=== PATIENT | male | born 1940 | race Caucasian/White ===

== ENCOUNTER 2016-12-09 17:28 | Emergency (ER) | payer MEDICARE ==
[~2016-12-09] VITALS: Ht 180.3 cm; Wt 90.0 kg
[~2016-12-09 17:28] MED LIST: AMLO5 PO; ASPI81TA82 PO; GLYB2.5T3 PO; METO100T PO; PANT20 PO; URIB118C PO; VITA100020 SL
[2016-12-09 17:30] VITALS: BP 169/70; PULSE 66; RESP 16; TEMP 97.9; O2SAT 98
--- NOTE | 2016-12-10 13:59 | EKG ---
Date Performed: 12/09/2016 Time Performed: 17:52:26 PTAGE: 76 years EKG: Sinus rhythm RIGHT BUNDLE BRANCH BLOCK ABNORMAL ECG PREVIOUS TRACING : 04/09/2016 22.46 DOCTOR: Samson Rojo Interpretating Date/Time 12/10/2016 13:53:52
== END 2016-12-09 19:25 | disposition left against medical advice (07) ==
LOC: NED 17:28
DX: R94.31 Abnormal electrocardiogram [ECG] [EKG] (principal); R10.9 Unspecified abdominal pain
CPT/HCPCS: 93005; 99281

== ENCOUNTER 2017-08-05 13:22 | Inpatient (IN) | payer MEDICARE ==
[~2017-08-05] VITALS: Ht 177.8 cm; Wt 88.0 kg
[2017-08-05] VITALS (11 sets, daily range): BP systolic 143–198; BP diastolic 72–88; PULSE 53–66; RESP 16–18; TEMP 97.4–98.5; O2SAT 95–100
[2017-08-05] MEDS ORDERED: IODIXANOL 320 MG/ML 10 ML VIAL (for Rad CT) IVCONTRAST ONE (13:23)
[2017-08-05] MEDS ORDERED: SODIUM CHLORID 0.9% 500 ML INJ 500 ML IV ONE (13:45)
[2017-08-05 14:01] LABS: AUTOMATED NEUTROPHIL # 4.4 TH/MM3 (1.8-7.7); BASOPHIL # 0.1 TH/MM3 (0-0.2); BASOPHIL % 1.3 % (0.0-2.0); EOSINOPHIL # 0.3 TH/MM3 (0-0.4); EOSINOPHIL % 4.3 % (0.0-4.0); HEMATOCRIT 42.8 % (39.0-51.0); HEMO FLAGS DIFF FINAL; LYMPH % 20.3 % (9.0-44.0); LYMPHOCYTE # 1.4 TH/MM3 (1.0-4.8); MEAN CELL VOLUME 84.2 FL (80.0-100.0); MEAN CORPUSCULAR HEMOGLOBIN 27.9 PG (27.0-34.0); MEAN CORPUSCULAR HGB CONC 33.2 % (32.0-36.0); MONO % 12.4 % (0.0-8.0); NEUT % 61.7 % (16.0-70.0); PLATELET COUNT 226 TH/MM3 (150-450); RED BLOOD COUNT 5.08 MIL/MM3 (4.50-5.90); RED CELL DISTRIBUTION WIDTH 14.2 % (11.6-17.2); WHITE BLOOD COUNT 7.1 TH/MM3 (4.0-11.0)
--- NOTE | 2017-08-05 14:09 | RADRPT ---
EXAM DATE/TIME: 08/05/2017 13:55 [facility] COMPARISON: CHEST SINGLE AP, April 09, 2016, 10:59. INDICATIONS : Chest pain MEDICAL HISTORY : Cardiovascular disease. SURGICAL HISTORY : Fusion, lumbar. CABG. Coronary artery stents ENCOUNTER: Initial ACUITY: 2 days PAIN SCORE: 6/10 LOCATION: chest FINDINGS: Portable AP view of the chest demonstrates a normal-sized cardiac silhouette in this patient post med cherelle sternotomy and CABG. No effusion, consolidation, or pneumothorax is identified. Bones and soft ti ssues demonstrate no acute finding. There is cervical spine and lumbar spine hardware. Partially visu alized reverse right shoulder arthroplasty is also present. There is stable elevation of the left hum eral head indicating a chronic rotator cuff tear. CONCLUSION: No acute cardiopulmonary abnormality is identified. David Yates MD on August 05, 2017 at 14:06 Board Certified Radiologist. This report was verified electronically.
[2017-08-05 14:13] LABS: APTT (PATIENT) 27.8 SEC (24.3-30.1); INTERNATIONAL NORMALIZED RATIO 0.9 RATIO; PROTHROMBIN TIME - PATIENT 9.8 SEC (9.8-11.6)
[2017-08-05 14:27] LABS: ALKALINE PHOSPHATASE 78 U/L (45-117); CREATINE KINASE 175 U/L (39-308); TOTAL BILIRUBIN ADULT 0.4 MG/DL (0.2-1.0)
[2017-08-05] MEDS ORDERED: ONDANSETRON HCL 4 MG/2 ML VIAL IV PUSH ONE (14:30)
[2017-08-05] MEDS ORDERED: MORPHINE SULFATE 4 MG/ML INJ IV PUSH ONE (14:30)
--- NOTE | 2017-08-05 14:33 | PD ---
HPI Chief Complaint: Cardiac Complaint Time Seen by Provider: 13:31 Travel History International Travel<30 days: No Contact w/Intl Traveler<30days: No Traveled to known affect area: No History of Present Illness HPI 77-year-old male that presents to the ED for evaluation of syncopal episode. Patient had a syncopal episode today while trying to go to the bathroom. Patient states that he felt weak and nauseous and went to the bathroom to throw up. He apparently had a syncopal episode this time. He states that he hit his head. He is not sure as to how long he lost consciousness. This was not witnessed by anybody. He also says that he is having some chest pain. She was evaluated at triage and was brought here as a straight back. Patient does have a significant history of heart disease including having 7 stents in the past as well as 2 open heart surgeries in the 90s. He states that the only blood thinner he takes is aspirin. Has a history of high blood pressure and diabetes. He states to the chest pain is pressure-like. He also reports some neck pain since the fall. Per patient the chest pain starts in the mid chest and moves up to the neck. Feels like a burning sensation. Radiates to the left arm. Denies any recent travel or injury. Denies ever having to like this before. Per triage nurse patient had an almost syncopal episode on the way to the room. Syncopal episode happened possibly an hour ago. Patient came here by private vehicle. PFSH Past Medical History Hx Anticoagulant Therapy: Yes (ASPIRIN 81 MG) Arthritis: Yes Asthma: No Autoimmune Disease: No Blood Disorders: No Anxiety: Yes Depression: No Heart Rhythm Problems: Yes Cancer: No Cardiac Catheterization: Yes Cardiovascular Problems: Yes High Cholesterol: No Chemotherapy: No Chest Pain: Yes Congestive Heart Failure: Yes COPD: No Cerebrovascular Accident: Yes (TIA X 2) Coronary Artery Disease: Yes Diabetes: Yes Dialysis: No Diminished Hearing: No Endocrine: Yes Gastrointestinal Disorders: Yes (GERD) GERD: Yes Glaucoma: No Genitourinary: Yes (ENLARGED PROSTATE) Headaches: No Hepatitis: No Hiatal Hernia: No Hypertension: Yes Immune Disorder: No Implanted Vascular Access Dvce: Yes (LOOP RECORDER IMPLANTED) Kidney Stones: No Musculoskeletal: Yes (R WRIST CARPAL TUNNEL) Neurologic: Yes (RECENT HOSPITALIZATION FOR CHRONIC AND SUBACUTE SDH) Psychiatric: Yes Reproductive: No Respiratory: No Integumentary: Yes (HX MRSA) Immunizations Current: Yes Migraines: No Myocardial Infarction: Yes Radiation Therapy: No Renal Failure: No Seizures: No Sickle Cell Disease: No Sleep Apnea: No Thyroid Disease: No Ulcer: No Past Surgical History Abdominal Surgery: Yes (SMALL BOWEL OBSTRUCTION X3, APPENDECTOMY, CHOLECYSTECTOMY, HERNIA REPAIRS,) AICD: No Appendectomy: Yes Arteriovenous Shunt: No Body Medical Devices: TITANIUM IN BACK & NECK & FINGER, VENA CAVA FILTER, MULTIPLE CARDIAC STENTS Cardiac Surgery: Yes (BYPASS 1993, BYPASS 2010, IMPLANTED LOOP RECORDER, CARDIAC CATH, ) Cholecystectomy: Yes Coronary Artery Bypass Graft: Yes Coronary Stent: Yes (X 3) Ear Surgery: No Endocrine Surgery: No Eye Surgery: Yes Genitourinary Surgery: Yes (TURP 2016) Gynecologic Surgery: No Insulin Pump: No Joint Replacement: Yes (BILAT KNEE) Neurologic Surgery: Yes (CERVICAL FUSION/SBH REMOVED) Oral Surgery: Yes (TONSILLECTOMY, ADENOIDECTOMY) Pacemaker: No Tonsillectomy: Yes Other Surgery: Yes (see hx) Social History Alcohol Use: Yes Tobacco Use: No Substance Use: No Allergies-Medications (Allergen,Severity, Reaction): Coded Allergies: acetaminophen (Unverified Allergy, Severe, 05/11/17) codeine (Unverified Allergy, Severe, Anaphylaxis, 05/11/17) ANAPHYLACTIC SHOCK hydrocodone (Unverified Allergy, Severe, Hives, 05/11/17) hydromorphone (Unverified Allergy, Severe, MADE ME SICK, 05/11/17) ketorolac (Unverified Allergy, Severe, HIVES, SOB, 05/11/17) lorazepam (Unverified Allergy, Severe, 05/11/17) oxycodone (Unverified Allergy, Severe, 05/11/17) tramadol (Unverified Allergy, Severe, HIVES, SOB, 05/11/17) HIVES *MDRO Multi-Drug Resistant Organism (Verified Adverse Reaction, Unknown, ) MRSA Blood 03/2006 MRSA PCR Screen negative 04/16/15 and 04/18/15. Cleared by Infection Control. Reported Meds & Prescriptions Reported Meds & Active Scripts Active Reported Protonix (Pantoprazole Sodium) 20 Mg Tab 20 Mg PO DAILY Aspir-81 (Aspirin) 81 Mg Tab 81 Mg PO DAILY Uribel (Ecnggeytuse-Bvizb-Dieihzemg Bl) 118 Mg Cap 118 Mg PO Q6HR Glyburide 2.5 Mg Tab 2.5 Mg PO DAILYAC Metoprolol Tartrate 100 mg (Metoprolol Tartrate) 100 Mg Tab 100 Mg PO BID Vitamin B-12 Extended Rel (Miscellaneous Medication) 1,000 Mcg Subl 1,000 Mcg SL DAILY Norvasc (Amlodipine Besylate) 5 Mg Tab 5 Mg PO DAILY Review of Systems Except as stated in HPI: all other systems reviewed are Neg Physical Exam Narrative GENERAL: SKIN: Warm and dry. HEAD: Atraumatic. Normocephalic. EYES: Pupils equal and round 4 mm reactive to light and accommodation. No scleral icterus. No injection or drainage. ENT: No nasal bleeding or discharge. Mucous membranes pink and moist. Tongue is midline. No uvula deviation. NECK: Trachea midline. No JVD. CARDIOVASCULAR: Regular rate and rhythm. No murmurs, S3, S4. RESPIRATORY: No accessory muscle use. Clear to auscultation. Breath sounds equal bilaterally. GASTROINTESTINAL: Abdomen soft, non-tender, nondistended. Hepatic and splenic margins not palpable. MUSCULOSKELETAL: Extremities without clubbing, cyanosis, or edema. No obvious deformities. Full range of motion of the upper and lower extremities bilaterally. 2+ pulses bilaterally. Patient does have some reproducible cervical tenderness to palpation more in the musculature. Patient was put on a cervical collar immediately during assessment. No obvious thoracic or lumbar spine tenderness to palpation. Full range of motion of the upper and lower extremities bilaterally. 2+ pulses bilaterally. NEUROLOGICAL: Awake and alert. No obvious cranial nerve deficits. Motor grossly within normal limits. Five out of 5 muscle strength in the arms and legs. Normal speech. PSYCHIATRIC: Appropriate mood and affect; insight and judgment normal. Data Data Last Documented VS Vital Signs Date Time Temp Pulse Resp B/P (MAP) Pulse Ox O2 Delivery O2 Flow Rate FiO2 08/05/17 15:33 54 160/75 (103) 55 143/78 (99) 08/05/17 14:40 16 97 Room Air 08/05/17 13:35 2.00 08/05/17 13:29 98.0 Orders Orders Electrocardiogram (08/05/17 13:31) B-Type Natriuretic Peptide (08/05/17 13:31) Ckmb (Isoenzyme) Profile (08/05/17 13:31) Complete Blood Count With Diff (08/05/17 13:31) Comprehensive Metabolic Panel (08/05/17 13:31) D-Dimer (08/05/17 13:31) Magnesium (Mg) (08/05/17 13:31) Prothrombin Time / Inr (Pt) (08/05/17 13:31) Act Partial Throm Time (Ptt) (08/05/17 13:31) Troponin I (08/05/17 13:31) Lipase (08/05/17 13:31) Chest, Single Ap (08/05/17 13:31) Ecg Monitoring (08/05/17 13:31) Bilateral Bp Monitoring (08/05/17 13:31) Iv Access Insert/Monitor (08/05/17 13:31) Oximetry (08/05/17 13:31) Oxygen Administration (08/05/17 13:31) Sodium Chlorid 0.9% 500 Ml Inj (Ns 500 M (08/05/17 13:45) Ct Brain W/O Iv Contrast(Rout) (08/05/17 13:31) Ct Cerv Spine W/O Contrast (08/05/17 13:31) Morphine Inj (Morphine Inj) (08/05/17 14:30) Ondansetron Inj (Zofran Inj) (08/05/17 14:30) Ct Pulmonary Angiogram (08/05/17 ) CKMB (08/05/17 13:50) CKMB% (08/05/17 13:50) Orthostatic Vital Signs (08/05/17 14:38) Vascular Access Team Consult/P PRN (08/05/17 14:53) Vascular Poc Ultrasound (08/05/17 ) Collar Gonzales (08/05/17 ) Iodixanol 320 Inj (Rad Ct) (Visipaque 32 (08/05/17 13:23) B-Type Natriuretic Peptide (08/05/17 16:24) Ckmb (Isoenzyme) Profile (08/05/17 16:50) Ckmb (Isoenzyme) Profile (08/05/17 19:50) Troponin I (08/05/17 16:50) Troponin I (08/05/17 19:50) Electrocardiogram (08/05/17 16:50) Electrocardiogram (08/05/17 19:50) Admit To Inpatient (08/05/17 ) Code Status (08/05/17 16:35) Vital Signs (Adult) Q4H (08/05/17 16:35) Activity Bed Rest With Brp (08/05/17 ) Maintenance Fitter / Telemetry CARLITOS.Q8H (08/05/17 16:35) Sodium Chloride 0.9% Flush (Ns Flush) (08/05/17 21:00) Sodium Chloride 0.9% Flush (Ns Flush) (08/05/17 16:45) Aspirin (Aspirin) (08/06/17 09:00) Nitroglycerin Sl (Nitrostat Sl) (08/05/17 16:45) Acetaminophen (Tylenol) (08/05/17 16:45) Creatine Kinase (Cpk) (08/05/17 16:35) Creatine Kinase (Cpk) (08/05/17 22:35) Troponin I (08/05/17 16:35) Magnesium (Mg) (08/05/17 16:35) Basic Metabolic Panel (Bmp) (08/06/17 06:00) Complete Blood Count With Diff (08/06/17 06:00) Lipid Profile (08/06/17 06:00) Scd Bilateral/Knee High CARLITOS.BID (08/05/17 16:35) Inpatient Certification (08/05/17 ) Holter Monitor Recording (08/05/17 ) Echo 2d Comp With Doppler (08/05/17 ) Consult Cardiology (08/05/17 ) Diet 1999 Ada Cons Carb (08/05/17 Dinner) Insulin Aspart Supplemtl Scale (Novolog (08/05/17 17:00) Amlodipine (Norvasc) (08/06/17 09:00) Aspirin Chew (Aspirin Chew) (08/06/17 09:00) Pantoprazole (Protonix) (08/06/17 09:00) Patient Own Medication (08/05/17 17:15) (Hub Use Only)Inp Phy Cons/Ref (08/05/17 ) Admit Order (Ed Use Only) (08/05/17 16:59) Labs Laboratory Tests Test 08/05/17 13:50 White Blood Count 7.1 TH/MM3 Red Blood Count 5.08 MIL/MM3 Hemoglobin 14.2 GM/DL Hematocrit 42.8 % Mean Corpuscular Volume 84.2 FL Mean Corpuscular Hemoglobin 27.9 PG Mean Corpuscular Hemoglobin Concent 33.2 % Red Cell Distribution Width 14.2 % Platelet Count 226 TH/MM3 Mean Platelet Volume 8.0 FL Neutrophils (%) (Auto) 61.7 % Lymphocytes (%) (Auto) 20.3 % Monocytes (%) (Auto) 12.4 % Eosinophils (%) (Auto) 4.3 % Basophils (%) (Auto) 1.3 % Neutrophils # (Auto) 4.4 TH/MM3 Lymphocytes # (Auto) 1.4 TH/MM3 Monocytes # (Auto) 0.9 TH/MM3 Eosinophils # (Auto) 0.3 TH/MM3 Basophils # (Auto) 0.1 TH/MM3 CBC Comment DIFF FINAL Differential Comment Prothrombin Time 9.8 SEC Prothromb Time International Ratio 0.9 RATIO Activated Partial Thromboplast Time 27.8 SEC D-Dimer Quantitative (PE/DVT) 0.63 MG/L FEU Blood Urea Nitrogen 21 MG/DL Creatinine 1.44 MG/DL Random Glucose 222 MG/DL Total Protein 7.3 GM/DL Albumin 3.4 GM/DL Calcium Level 8.5 MG/DL Magnesium Level 1.9 MG/DL Alkaline Phosphatase 78 U/L Aspartate Amino Transf (AST/SGOT) 24 U/L Alanine Aminotransferase (ALT/SGPT) 31 U/L Total Bilirubin 0.4 MG/DL Sodium Level 137 MEQ/L Potassium Level 4.4 MEQ/L Chloride Level 105 MEQ/L Carbon Dioxide Level 23.3 MEQ/L Anion Gap 9 MEQ/L Estimat Glomerular Filtration Rate 47 ML/MIN Total Creatine Kinase 175 U/L Creatine Kinase MB 2.2 NG/ML Troponin I LESS THAN 0.02 NG/ML Lipase 124 U/L [facility] Medical Decision Making Medical Screen Exam Complete: Yes Emergency Medical Condition: Yes Medical Record Reviewed: Yes Interpretation(s) CBC & BMP Diagram 08/05/17 13:50 Total Protein 7.3, Albumin 3.4, Calcium Level 8.5, Magnesium Level 1.9, Alkaline Phosphatase 78, Aspartate Amino Transf (AST/SGOT) 24, Alanine Aminotransferase (ALT/SGPT) 31, Total Bilirubin 0.4 EKG shows sinus rhythm with no sign of acute ischemia or arrhythmia read by me and attending. More specifically no ST elevation. Troponin and CK-MB were negative Lipase was negative. Coags within normal limits. Last Impressions Chest X-Ray 08/05/17 1331 Signed Impressions: Service Date/Time: July 13:55 - CONCLUSION: No acute cardiopulmonary abnormality is identified. David Yates MD CT Angiography 08/05/17 0000 Signed Impressions: Service Date/Time: July 15:59 - CONCLUSION: 1. No PE is identified. 2. No definite acute pulmonary abnormality is seen. There are subtle areas of groundglass attenuation bilaterally. Although nonspecific this could represent some mild edema. David Yates MD Differential Diagnosis Chest pain versus ACS versus syncopal episode versus cardiac syncope versus dizziness versus neck pain versus fracture versus head injury Narrative Course 77-year-old male that presents to the ED for evaluation of syncope and chest pain. Patient was properly examined and was found to have signs and symptoms concerning for cardiac syncope as well as possible cardiac chest pain. He does have multiple comorbidities were both. He did hit his head and possible loss of consciousness. Patient complains of some neck pain. Patient was put in a cervical collar. Labs and imaging were ordered. Labs and imaging were essentially unremarkable for any acute disease. Patient did have positive orthostatics I cannot stand on his own with a feeling dizzy. At this time recommendation by my attending Dr Pickett who evaluated the patient with me recommends admission secondary to his symptoms. [facility] was paged. Dr Cobian agrees with admission. Procedures EKG Prior to Arrival: No Diagnosis Primary Impression: Syncope Qualified Codes: R55 - Syncope and collapse Additional Impressions: Chest pain Qualified Codes: R07.9 - Chest pain, unspecified Neck pain Head injury Qualified Codes: S09.90XA - Unspecified injury of head, initial encounter Orthostatic hypotension Admitting Information Admitting Physician Requests: Admit Saravanan August Aug 05, 2017 14:33
[2017-08-05 14:39] LABS: CKMB 2.2 NG/ML (0.5-3.6)
[2017-08-05 14:52] LABS: ALT (GPT) 31 U/L (12-78); ANION GAP 9 MEQ/L (5-15); AST (GOT) 24 U/L (15-37); BICARBONATE 23.3 MEQ/L (21.0-32.0); BLOOD UREA NITROGEN 21 MG/DL (7-18); CHLORIDE 105 MEQ/L (98-107); GLOMERULAR FILTRATION RATE 47 ML/MIN (>89); MAGNESIUM 1.9 MG/DL (1.5-2.5); POTASSIUM 4.4 MEQ/L (3.5-5.1); SODIUM (NA) 137 MEQ/L (136-145)
--- NOTE | 2017-08-05 16:20 | RADRPT ---
EXAM DATE/TIME: 08/05/2017 15:59 [facility] COMPARISON: CHEST SINGLE AP, August 05, 2017, 13:55. INDICATIONS : Chest pain, syncope IV CONTRAST: 75 cc Visipaque (iodixanol) IV RADIATION DOSE: 22.98 CTDIvol (mGy) MEDICAL HISTORY : Hypertension. Diabetes mellitus type 2. Cerebrovascular disease. SURGICAL HISTORY : Appendectomy. CABGCholecystectomy. ENCOUNTER: Initial ACUITY: 2 days PAIN SCALE: 5/10 LOCATION: chest TECHNIQUE: Volumetric scanning of the chest was performed using a pulmonary embolism protocol MIP images were re constructed. Using automated exposure control and adjustment of the mA and/or kV according to patien t size, radiation dose was kept as low as reasonably achievable to obtain optimal diagnostic quality images. DICOM format image data is available electronically for review and comparison. Follow-up recommendations for detected pulmonary nodules are based at a minimum on nodule size and pa tient risk factors according to Fleischner Society Guidelines. FINDINGS: PULMONARY ARTERIES: No filling defects are seen in the pulmonary arteries through the segmental level. LUNGS: There is no consolidation or pneumothorax . There is mild groundglass attenuation bilaterally. PLEURAE: There is no pleural thickening or pleural effusion. MEDIASTINUM: The heart and great vessels demonstrate no acute finding. There is coronary artery calcification and there has been prior CABG. No lymphadenopathy is present. MUSCULOSKELETAL: Degenerative changes are present throughout the thoracic spine. Patient is post median sternotomy. Th ere is focal synovial hypertrophy the superior aspect of the left sternoclavicular joint. Thoracic an d lumbar spine hardware is present. MISCELLANEOUS: The visualized upper abdominal organs demonstrate no acute abnormality. There is mild bilateral gynec omastia. Cholecystectomy clips are present. CONCLUSION: 1. No PE is identified. 2. No definite acute pulmonary abnormality is seen. There are subtle areas of groundglass attenuation bilaterally. Although nonspecific this could represent some mild edema. David Yates MD on August 05, 2017 at 16:13 Board Certified Radiologist. This report was verified electronically.
--- NOTE | 2017-08-05 16:33 | RADRPT ---
EXAM DATE/TIME: 08/05/2017 15:49 [facility] COMPARISON: CT BRAIN W/O CONTRAST, March 16, 2016, 13:13. INDICATIONS : Patient fell 2 days ago RADIATION DOSE: 58.29 CTDIvol (mGy) MEDICAL HISTORY : Cerebrovascular disease. Hypertension. SURGICAL HISTORY : Appendectomy. Cholecystectomy.CABG ENCOUNTER: Initial ACUITY: 2 days PAIN SCALE: 5/10 LOCATION: cranial TECHNIQUE: Multiple contiguous axial images were obtained of the head. Using automated exposure control and adj ustment of the mA and/or kV according to patient size, radiation dose was kept as low as reasonably a chievable to obtain optimal diagnostic quality images. DICOM format image data is available electro nically for review and comparison. FINDINGS: CEREBRUM: The ventricles are normal for age. No evidence of midline shift, mass lesion, hemorrhage or acute in farction. No extra-axial fluid collections are seen. POSTERIOR FOSSA: The cerebellum and brainstem are intact. The 4th ventricle is midline. The cerebellopontine angle i s unremarkable. EXTRACRANIAL: The visualized portion of the orbits is intact. SKULL: The calvaria is intact. No evidence of skull fracture. CONCLUSION: 1. No acute disease. 2. No evidence of acute infarct, hemorrhage, mass or edema. Rahat Méndez MD on August 05, 2017 at 16:30 Board Certified Radiologist. This report was verified electronically.
[2017-08-05] MEDS ORDERED: SODIUM CHLORIDE 0.9% FLUSH 10 ML FLUSH IV FLUSH PRN (16:45)
[2017-08-05] MEDS ORDERED: NITROGLYCERIN 0.4 MG SL 25 TABS/BTL SL PRN (16:45)
[2017-08-05] MEDS: INSULIN ASPART SUPPLEMENTAL SCALE SQ SCH ×2 (17:00→20:17)
[2017-08-05] MEDS ORDERED: HYOSCYAMINE PO SCH ×2 (17:15→18:00)
[2017-08-05] MEDS ORDERED: PHENYL SALICYLATE PO SCH ×2 (17:15→18:00)
[2017-08-05] MEDS ORDERED: METHENAMINE PO SCH ×2 (17:15→18:00)
[2017-08-05] MEDS ORDERED: METHYLENE BLUE PO SCH ×2 (17:15→18:00)
[2017-08-05] MEDS ORDERED: SODIUM PHOSPHATE MONOBASIC PO SCH ×2 (17:15→18:00)
--- NOTE | 2017-08-05 17:20 | RADRPT ---
EXAM DATE/TIME: 08/05/2017 15:49 [facility] COMPARISON: CT CERVICAL SPINE W/O CONTRAST, April 15, 2015, 11:55. INDICATIONS : Patient fell 2 days ago RADIATION DOSE: 21.48 CTDIvol (mGy) MEDICAL HISTORY : Cerebrovascular disease. Hypertension. Diabetes mellitus type 2. SURGICAL HISTORY : CABG Appendectomy.Cholecystectomy. ENCOUNTER: Initial ACUITY: 2 days PAIN SCALE: 5/10 LOCATION: neck TECHNIQUE: Volumetric scanning of the cervical spine was performed. Multiplanar reconstructions in the sagittal, coronal and oblique axial planes were performed. Using automated exposure control and adjustment o f the mA and/or kV according to patient size, radiation dose was kept as low as reasonably achievable to obtain optimal diagnostic quality images. DICOM format image data is available electronically f or review and comparison. FINDINGS: Alignment: Craniocervical alignment is stable. Significant degenerative disease identified involving the C1-2 ar ticulation. There is slight anterior displacement of the odontoid in relation to the clivus. A peel-away of the cervical vertebral bodies is stable. There is no evidence of mass listhesis. Osseous structures and facet joints: As indicated above there are degenerative changes at the C1-2 articulation. There is sclerosis and co rtical irregularity involving the odontoid. Circumferential calcification along the transverse ligame nt is noted. There is loss of the predental space. Postsurgical changes which include anterior fusion from C3-C6, 2 level laminectomy at C5 and C6 and p osterior fusion apparatus at C5-6 bilaterally are stable when compared to the previous study. There is no evidence of acute fracture or traumatic subluxation. Significant facet arthropathy is nika ntified at C2-3 on the left. Intervertebral disc spaces: Solid fusion is identified involving the C3-4, C4-5 and C5-6 intervertebral discs. Moderate degenerative changes identified involving the C2-3, C6-7 and C7-T1 discs with disc space avelina rowing, endplate erosions and marginal spondylosis. There is no evidence of apparent disc herniation. Neurologic structures: No evidence of central spinal stenosis. Significant multilevel foraminal encroachment is identified. There is high-grade right-sided foramina l stenosis at C3-4 and mild to moderate bilateral ramal stenosis at C5-6. CONCLUSION: 1. Stable postsurgical changes following anterior cervical fusion, manager field service laminectomy and fusion. 2. No evidence of traumatic listhesis or fracture. 3. 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 Rahat Méndez MD on August 05, 2017 at 17:09 Board Certified Radiologist. This report was verified electronically.
--- NOTE | 2017-08-05 19:35 | HHI.HP ---
HPI Service [facility] Hospitalists Primary Care Physician Homer Dorman M.D. Admission Diagnosis syncope, chest pain r/o ACS, orthostatic hypotension Chief Complaint: syncope chest pain today Travel History International Travel<30 Days: No Contact w/Intl Traveler <30 Da: No Traveled to Known Affected Are: No History of Present Illness 77-year-old male that presents to the ED for evaluation of syncopal episode. Patient had a syncopal episode today while trying to go to the bathroom. Patient states that he felt weak and nauseous and went to the bathroom to throw up. He apparently had a syncopal episode this time. He states that he hit his head. He is not sure as to how long he lost consciousness. This was not witnessed by anybody. He also says that he is having some chest pain. Patient states heaviness and morphine helps it. Patient does have a significant history of heart disease including having 7 stents in the past as well as 2 open heart surgeries in the . He states that the only blood thinner he takes is aspirin. Has a history of high blood pressure and diabetes. He states to the chest pain is pressure-like. He also reports some neck pain since the fall. Per patient the chest pain starts in the mid chest and moves up to the neck. Feels like a burning sensation. Radiates to the left arm. Denies any recent travel or injury. Denies ever having to like this before. Per triage nurse patient had an almost syncopal episode on the way to the room. . Patient came here by private vehicle. Patient will be admitted for cardiac evaluation. Review of Systems Respiratory: COMPLAINS OF: Shortness of breath Cardiovascular: COMPLAINS OF: Chest pain, Syncope Neurologic: COMPLAINS OF: Headache Past Family Social History Past Medical History djd,cad,chf,s/p multiple stents,tia,dm,gerd,prostate enlargement mi,htn,chronic SDH loop recorder Past Surgical History appendix ,tonsil,gallbladder,hernia,back and neck surgery vena cava filter, bypass ,multiple cardiac stents last 2 stents 04/12 TURP,bilateral knee surgeries Reported Medications protonix,asa81,glyburide2.5,norvasc5 Allergies: Coded Allergies: acetaminophen (Unverified Allergy, Severe, 05/11/17) codeine (Unverified Allergy, Severe, Anaphylaxis, 05/11/17) ANAPHYLACTIC SHOCK hydrocodone (Unverified Allergy, Severe, Hives, 05/11/17) hydromorphone (Unverified Allergy, Severe, MADE ME SICK, 05/11/17) ketorolac (Unverified Allergy, Severe, HIVES, SOB, 05/11/17) lorazepam (Unverified Allergy, Severe, 05/11/17) oxycodone (Unverified Allergy, Severe, 05/11/17) tramadol (Unverified Allergy, Severe, HIVES, SOB, 05/11/17) HIVES *MDRO Multi-Drug Resistant Organism (Verified Adverse Reaction, Unknown, ) MRSA Blood 03/2006 MRSA PCR Screen negative 04/16/15 and 04/18/15. Cleared by Infection Control. Social History occ etoh no smoking Physical Exam Vital Signs Vital Signs Date Time Temp Pulse Resp B/P (MAP) Pulse Ox O2 Delivery O2 Flow Rate FiO2 08/05/17 19:14 98.5 59 18 198/84 (122) 100 08/05/17 17:25 166/77 (106) 163/72 (102) 08/05/17 17:15 59 16 166/77 (106) 100 Room Air 08/05/17 15:33 54 160/75 (103) 55 143/78 (99) 08/05/17 14:40 62 16 167/77 (107) 97 Room Air 08/05/17 13:35 100 Nasal Cannula 2.00 08/05/17 13:35 100 Nasal Cannula 2.00 08/05/17 13:32 100 2.00 08/05/17 13:29 98.0 63 18 190/88 (122) 100 Physical Exam GENERAL: This is a well-nourished, well-developed patient, in no apparent distress. SKIN: No rashes, ecchymoses or lesions. Cool and dry. HEAD: Atraumatic. Normocephalic. No temporal or scalp tenderness. some cervical tenderness has collar on EYES: Pupils equal round and reactive. Extraocular motions intact. No scleral icterus. No injection or drainage. ENT: Nose without bleeding, purulent drainage or septal hematoma. Throat without erythema, tonsillar hypertrophy or exudate. Uvula midline. Airway patent. NECK: Trachea midline. No JVD or lymphadenopathy. Supple, nontender, no meningeal signs. CARDIOVASCULAR: Regular rate and rhythm without murmurs, gallops, or rubs. RESPIRATORY: Clear to auscultation. Breath sounds equal bilaterally. No wheezes , rales, or rhonchi. GASTROINTESTINAL: Abdomen soft, non-tender, nondistended. No hepato-splenomegaly , or palpable masses. No guarding. MUSCULOSKELETAL: Extremities without clubbing, cyanosis, or edema. No joint tenderness, effusion, or edema noted. No calf tenderness. Negative Homans sign bilaterally. NEUROLOGICAL: Awake and alert. Cranial nerves II through XII intact. Motor and sensory grossly within normal limits. Five out of 5 muscle strength in all muscle groups. Normal speech. Laboratory Laboratory Tests Test 08/05/17 13:50 08/05/17 17:40 White Blood Count 7.1 Red Blood Count 5.08 Hemoglobin 14.2 Hematocrit 42.8 Mean Corpuscular Volume 84.2 Mean Corpuscular Hemoglobin 27.9 Mean Corpuscular Hemoglobin Concent 33.2 Red Cell Distribution Width 14.2 Platelet Count 226 Mean Platelet Volume 8.0 Neutrophils (%) (Auto) 61.7 Lymphocytes (%) (Auto) 20.3 Monocytes (%) (Auto) 12.4 Eosinophils (%) (Auto) 4.3 Basophils (%) (Auto) 1.3 Neutrophils # (Auto) 4.4 Lymphocytes # (Auto) 1.4 Monocytes # (Auto) 0.9 Eosinophils # (Auto) 0.3 Basophils # (Auto) 0.1 CBC Comment DIFF FINAL Differential Comment Prothrombin Time 9.8 Prothromb Time International Ratio 0.9 Activated Partial Thromboplast Time 27.8 D-Dimer Quantitative (PE/DVT) 0.63 Blood Urea Nitrogen 21 Creatinine 1.44 Random Glucose 222 Total Protein 7.3 Albumin 3.4 Calcium Level 8.5 Magnesium Level 1.9 Alkaline Phosphatase 78 Aspartate Amino Transf (AST/SGOT) 24 Alanine Aminotransferase (ALT/SGPT) 31 Total Bilirubin 0.4 Sodium Level 137 Potassium Level 4.4 Chloride Level 105 Carbon Dioxide Level 23.3 Anion Gap 9 Estimat Glomerular Filtration Rate 47 Total Creatine Kinase 175 Creatine Kinase MB 2.2 Troponin I LESS THAN 0.02 LESS THAN 0.02 B-Type Natriuretic Peptide 129 Lipase 124 Result Diagram: 08/05/17 1350 08/05/17 1350 Imaging Last [address] 08/05/17 1331 Signed Impressions: Service Date/Time: July 15:49 - CONCLUSION: 1. No acute disease. 2. No evidence of acute infarct, hemorrhage, mass or edema. Rahat Méndez MD Chest X-Ray 08/05/171 Signed Impressions: Service Date/Time: July 13:55 - CONCLUSION: No acute cardiopulmonary abnormality is identified. David Yates MD Cervical Spine CT 08/05/17 1331 Signed Impressions: Service Date/Time: July 15:49 - CONCLUSION: 1. Stable postsurgical changes following anterior cervical fusion, tissue rewinder laminectomy and fusion. 2. No evidence of traumatic listhesis or fracture. 3. 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 Rahat Méndez MD CT Angiography 08/05/17 0000 Signed Impressions: Service Date/Time: July 15:59 - CONCLUSION: 1. No PE is identified. 2. No definite acute pulmonary abnormality is seen. There are subtle areas of groundglass attenuation bilaterally. Although nonspecific this could represent some mild edema. David Yates MD Course ekg NSR Caprini VTE Risk Assessment Caprini VTE Risk Assessment: Mod/High Risk (score >= 2) Caprini Risk Assessment Model Point Value = 1 Point Value = 2 Point Value = 3 Point Value = 5 Age 41-60 Minor surgery BMI > 25 kg/m2 Swollen legs Varicose veins or History of unexplained or recurrent spontaneous Oral contraceptives or hormone replacement Sepsis (< 1 month) Serious lung disease, including pneumonia (< 1 month) Abnormal pulmonary function Acute myocardial infarction Congestive heart failure (< 1 month) History of inflammatory bowel disease Medical patient at bed rest Age 61-74 Arthroscopic surgery Major open surgery (> 45 min) Laparoscopic surgery (> 45 min) Malignancy Confined to bed (> 72 hours) Immobilizing plaster cast Central venous access Age >= 75 History of VTE Family history of VTE Factor V Leiden Prothrombin [id number] Lupus anticoagulant Anticardiolipin antibodies Elevated serum homocysteine Heparin-induced thrombocytopenia Other congenital or acquired thrombophilia Stroke (< 1 month) Elective arthroplasty Hip, pelvis, or leg fracture Acute spinal cord injury (< 1 month) Prophylaxis Regimen Total Risk Factor Score Risk Level Prophylaxis Regimen 0-1 Low Early ambulation 2 Moderate Order ONE of the following: *Sequential Compression Device (SCD) *Heparin 5000 units SQ BID 3-4 Higher Order ONE of the following medications: *Heparin 5000 units SQ TID *Enoxaparin/Lovenox 40 mg SQ daily (WT < 150 kg, CrCl > 30 mL/min) *Enoxaparin/Lovenox 30 mg SQ daily (WT < 150 kg, CrCl > 10-29 mL/min) *Enoxaparin/Lovenox 30 mg SQ BID (WT < 150 kg, CrCl > 30 mL/min) AND/OR *Sequential Compression Device (SCD) 5 or more Highest Order ONE of the following medications: *Heparin 5000 units SQ TID (Preferred with Epidurals) *Enoxaparin/Lovenox 40 mg SQ daily (WT < 150 kg, CrCl > 30 mL/min) *Enoxaparin/Lovenox 30 mg SQ daily (WT < 150 kg, CrCl > 10-29 mL/min) *Enoxaparin/Lovenox 30 mg SQ BID (WT < 150 kg, CrCl > 30 mL/min) AND *Sequential Compression Device (SCD) Assessment and Plan Problem List: (1) Chest pain ICD Codes: R07.9 - Chest pain Status: Acute Plan: patient with known cardiac disease pain meds recheck labs cardiac enzymes (2) Syncope ICD Codes: R55 - Syncope Status: Acute Plan: will monitor for now CT and labs essentially unremarkable does have significant djd c spine Assessment and Plan further plan as case develops Code Status full Discussed Condition With patient Physician Certification 2 Midnight Certification Type: Admission for Inpatient Services Order for Inpatient Services The services are ordered in accordance with Medicare regulations or non- Medicare payer requirements, as applicable. In the case of services not specified as inpatient-only, they are appropriately provided as inpatient services in accordance with the 2-midnight benchmark. Estimated LOS (days): 2 2 days is the estimated time the patient will need to remain in the hospital, assuming treatment plan goals are met and no additional complications. Post-Hospital Plan: Not yet determined Problem Qualifiers (1) Chest pain: Qualified Codes: R07.9 - Chest pain, unspecified (2) Syncope: Qualified Codes: R55 - Syncope and collapse Hi Sanches MD Aug 05, 2017 19:35
[2017-08-05] MEDS: SODIUM CHLORIDE 0.9% FLUSH 10 ML FLUSH IV FLUSH SCH (21:00)
[2017-08-05] MEDS: MORPHINE SULFATE 4 MG/ML INJ IV PUSH PRN (21:25)
[2017-08-05 21:37] LABS: CREATINE KINASE 170 U/L (39-308)
[2017-08-05 21:49] LABS: CKMB 2.5 NG/ML (0.5-3.6)
[2017-08-05] MEDS: ACETAMINOPHEN 500 MG CPLT PO PRN (23:04)
[2017-08-06] VITALS (8 sets, daily range): BP systolic 139–177; BP diastolic 65–85; PULSE 54–82; RESP 16–20; TEMP 97.1–98.4; O2SAT 95–98
[2017-08-06] MEDS: MORPHINE SULFATE 4 MG/ML INJ IV PUSH PRN ×5 (01:22→23:01)
[2017-08-06 04:14] LABS: AUTOMATED NEUTROPHIL # 4.7 TH/MM3 (1.8-7.7); BASOPHIL # 0.1 TH/MM3 (0-0.2); BASOPHIL % 1.4 % (0.0-2.0); EOSINOPHIL # 0.4 TH/MM3 (0-0.4); EOSINOPHIL % 5.4 % (0.0-4.0); HEMATOCRIT 42.6 % (39.0-51.0); HEMO FLAGS DIFF FINAL; LYMPH % 18.2 % (9.0-44.0); LYMPHOCYTE # 1.4 TH/MM3 (1.0-4.8); MEAN CELL VOLUME 84.5 FL (80.0-100.0); MEAN CORPUSCULAR HEMOGLOBIN 27.8 PG (27.0-34.0); MEAN CORPUSCULAR HGB CONC 32.9 % (32.0-36.0); MONO % 13.3 % (0.0-8.0); NEUT % 61.7 % (16.0-70.0); PLATELET COUNT 203 TH/MM3 (150-450); RED BLOOD COUNT 5.03 MIL/MM3 (4.50-5.90); RED CELL DISTRIBUTION WIDTH 13.9 % (11.6-17.2); WHITE BLOOD COUNT 7.6 TH/MM3 (4.0-11.0)
[2017-08-06 04:55] LABS: BICARBONATE 24.9 MEQ/L (21.0-32.0); HDL CHOLESTEROL 36.7 MG/DL (40.0-60.0); MAGNESIUM 1.8 MG/DL (1.5-2.5); POTASSIUM 3.8 MEQ/L (3.5-5.1)
[2017-08-06] MEDS: INSULIN ASPART SUPPLEMENTAL SCALE SQ SCH ×4 (08:00→20:09)
[2017-08-06] MEDS ORDERED: ASPIRIN 81 MG CHEW TAB PO SCH (09:00)
--- NOTE | 2017-08-06 09:40 | MB ---
cc: SHANTAL URIBE MD DATE OF CONSULTATION 08/06/2017 HISTORY This is a 77-year-old gentleman who was admitted to the hospital with chest pain and syncope. There is a long history of chest pain and coronary artery disease. He underwent [employer] and stenting this past February. He has a long history, as well, of syncope with a loop recorder inserted approximately one year ago after a fall and subdural hematoma. He has also had chronic neck and back pain. A month ago, he was seen at the [facility] for a series of injections to his neck for chronic neck pain. During his second injection, he had an a syncopal episode, was hospitalized at that hospital for several days in the intensive care unit and eventually discharged. He is not aware of any specific diagnosis. This past Wednesday, he was on his deck and became lightheaded. He feels that he passed out and actually fell and broke a piece of furniture. He regained consciousness and then no further episodes occurred. 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 He was able to finish his service and went home. While watching television, he had another episode of lightheadedness and dizziness associated with chest pain lasting for approximately 20 minutes. This recurred yesterday. He called Dr. Dorman's office who advised him to come to the emergency room where he subsequently has been admitted. Electrocardiogram was normal and troponins are normal x2. No exertional discomfort has been present. He is currently complaining of significant pain in his neck and complains that his vision also is a little bit blurry due to his pain. PAST MEDICAL HISTORY Otherwise significant for: 1. Hypertension 2. Coronary bypass grafting x2 3. He has had multiple stents in the past. 4. He has also had a history of significant surgery on his back and neck. 5. He has a Ensighten filter in place. SOCIAL HISTORY He occasionally drinks alcohol. He is a nonsmoker and does not use recreational drugs. ALLERGIES HE HAS SIGNIFICANT ALLERGIES TO TORADOL, OXYCODONE, TRAMADOL, HYDROMORPHONE, CODEINE AND TYLENOL. MEDICATIONS His current medications include: 1. Protonix 20 daily 2. Aspirin 81 mg daily 3. Glyburide 2.5 mg daily 4. Metoprolol 100 twice daily 5. Amlodipine 5 mg daily PHYSICAL EXAM On physical exam, he is awake and alert. He is in no distress. VITAL SIGNS: His blood pressure is 140/70, pulse is 54 and regular. NECK: There is no neck vein distension. Carotids are normal. LUNGS: Clear. CARDIOVASCULAR: Exam reveals a regular rate and rhythm. No significant murmur, no gallop is noted. ABDOMEN: Soft. There is no tenderness or organomegaly. EXTREMITIES: Reveal no edema as noted above. Troponins are normal x3. Electrocardiogram reveals no acute ST or T-wave changes. ASSESSMENT The patient has had a rather chronic pain syndrome which I think at this point is probably related to his neck pain. I have ordered a Lexiscan in view of his rather extensive past history. He also feels that he is mildly dehydrated so I have restarted his IV. Pain management consult may be also of value to help. We will also contact a field service representative and have his loop recorder interrogated to rule out any significant arrhythmias. MD CURT Valenzuela/LELAND /9:15 AM /9:26 AM
[2017-08-06] MEDS: PANTOPRAZOLE SOD 20 MG DELAYED RELEASE TAB PO SCH (09:41)
[2017-08-06] MEDS: SODIUM CHLORIDE 0.9% FLUSH 10 ML FLUSH IV FLUSH SCH ×2 (09:41→20:09)
[2017-08-06] MEDS: amLODIPine BESYLATE 5 MG TAB PO SCH (09:41)
[2017-08-06] MEDS: ASPIRIN 325 MG TAB PO SCH (09:41)
[2017-08-06] MEDS: SODIUM CHLOR 0.45% 1000 ML INJ 1,000 ML IV SCH ×2 (11:15→22:29)
[2017-08-06] MEDS ORDERED: REGADENOSON INJ 0.4 MG/5 ML SYR ONE (12:46)
--- NOTE | 2017-08-06 14:03 | PD.CARD.PN ---
Subjective Subjective Remarks Loop recorder shows no significant arrhythmia Objective Medications Current Medications Medications (Trade) Dose Ordered Sig/Gaston Route Start Time Stop Time Status Last Admin (NS Flush) 2 ml BID IV FLUSH 08/05/17 21:00 08/06/17 09:41 (NS Flush) 2 ml UNSCH PRN IV FLUSH 08/05/17 16:45 08/06/17 01:23 (Aspirin) 325 mg DAILY PO 08/06/17 09:00 08/06/17 09:41 (Nitrostat Sl) 0.4 mg Q5M PRN SL 08/05/17 16:45 (Tylenol) 500 mg Q4H PRN PO 08/05/17 16:45 08/05/17 23:04 (NovoLOG SUPPLEMENTAL SCALE) 1 ACHS SLIDING SCALE SQ 08/05/17 17:00 (Norvasc) 5 mg DAILY PO 08/06/17 09:00 08/06/17 09:41 (Protonix) 20 mg DAILY PO 08/06/17 09:00 08/06/17 09:41 Patient Own Medication PT OWN MED: ([id number]... Q6HR PO 08/05/17 18:00 Future Hold (Morphine Inj) 4 mg Q4HR PRN IV PUSH 08/05/17 19:45 08/06/17 09:58 (Zofran Inj) 4 mg Q6HR PRN IV PUSH 08/05/17 19:45 Sodium Chloride 1,000 ml @ 84 mls/hr [id number] IV 08/06/17 10:00 08/06/17 11:15 Vital Signs / I&O Vital Signs Date Time Temp Pulse Resp B/P (MAP) Pulse Ox O2 Delivery O2 Flow Rate FiO2 08/06/17 11:12 163/65 (97) 172/85 (114) 08/06/17 08:00 63 08/06/17 04:17 97.5 54 18 146/67 (93) 98 08/06/17 00:46 54 08/06/17 00:00 Nasal Cannula 2.00 08/05/17 23:30 97.4 66 18 170/74 (106) 97 08/05/17 23:13 168/72 (104) 08/05/17 22:30 97.4 53 18 183/84 (117) 95 08/05/17 20:16 56 18 171/79 (109) 100 Room Air 08/05/17 19:14 98.5 59 18 198/84 (122) 100 08/05/17 17:25 166/77 (106) 163/72 (102) 08/05/17 17:15 59 16 166/77 (106) 100 Room Air 08/05/17 15:33 54 160/75 (103) 55 143/78 (99) 08/05/17 14:40 62 16 167/77 (107) 97 Room Air I/O 08/05/17 08/05/17 08/05/17 08/06/17 08/06/17 08/06/17 07:00 15:00 23:00 07:00 15:00 23:00 Intake Total 500 ml 240 ml Output Total 350 ml Balance 500 ml -110 ml Intake Oral 240 ml IV Total 500 ml Output Urine Total 350 ml # Bowel Movements 0 Laboratory Laboratory Tests Test 08/05/17 17:40 08/05/17 21:00 08/06/17 03:46 Total Creatine Kinase 157 U/L 170 U/L 180 U/L Troponin I LESS THAN 0.02 NG/ML LESS THAN 0.02 NG/ML Creatine Kinase MB 2.5 NG/ML White Blood Count 7.6 TH/MM3 Red Blood Count 5.03 MIL/MM3 Hemoglobin 14.0 GM/DL Hematocrit 42.6 % Mean Corpuscular Volume 84.5 FL Mean Corpuscular Hemoglobin 27.8 PG Mean Corpuscular Hemoglobin Concent 32.9 % Red Cell Distribution Width 13.9 % Platelet Count 203 TH/MM3 Mean Platelet Volume 7.9 FL Neutrophils (%) (Auto) 61.7 % Lymphocytes (%) (Auto) 18.2 % Monocytes (%) (Auto) 13.3 % Eosinophils (%) (Auto) 5.4 % Basophils (%) (Auto) 1.4 % Neutrophils # (Auto) 4.7 TH/MM3 Lymphocytes # (Auto) 1.4 TH/MM3 Monocytes # (Auto) 1.0 TH/MM3 Eosinophils # (Auto) 0.4 TH/MM3 Basophils # (Auto) 0.1 TH/MM3 CBC Comment DIFF FINAL Differential Comment Blood Urea Nitrogen 18 MG/DL Creatinine 1.27 MG/DL Random Glucose 98 MG/DL Calcium Level 8.3 MG/DL Sodium Level 140 MEQ/L Potassium Level 3.8 MEQ/L Chloride Level 105 MEQ/L Carbon Dioxide Level 24.9 MEQ/L Anion Gap 10 MEQ/L Estimat Glomerular Filtration Rate 55 ML/MIN Magnesium Level 1.8 MG/DL Triglycerides Level 301 MG/DL Cholesterol Level 192 MG/DL LDL Cholesterol 95 MG/DL HDL Cholesterol 36.7 MG/DL Cholesterol/HDL Ratio 5.23 RATIO Marko Zaidi MD Aug 06, 2017 14:03
--- NOTE | 2017-08-06 14:36 | HHI.PR ---
Subjective Remarks Patient has just returned from [place] reports he feels, "like crap." C/O specifically of pain on the right side of his neck which is chronic. Patient being treated at [facility] with injections. Objective Vitals Vital Signs Date Time Temp Pulse Resp B/P (MAP) Pulse Ox O2 Delivery O2 Flow Rate FiO2 08/06/17 11:12 163/65 (97) 172/85 (114) 08/06/17 08:00 63 08/06/17 04:17 97.5 54 18 146/67 (93) 98 08/06/17 00:46 54 08/06/17 00:00 Nasal Cannula 2.00 08/05/17 23:30 97.4 66 18 170/74 (106) 97 08/05/17 23:13 168/72 (104) 08/05/17 22:30 97.4 53 18 183/84 (117) 95 08/05/17 20:16 56 18 171/79 (109) 100 Room Air 08/05/17 19:14 98.5 59 18 198/84 (122) 100 08/05/17 17:25 166/77 (106) 163/72 (102) 08/05/17 17:15 59 16 166/77 (106) 100 Room Air 08/05/17 15:33 54 160/75 (103) 55 143/78 (99) 08/05/17 14:40 62 16 167/77 (107) 97 Room Air Result Diagram: 08/06/17 0346 08/06/17 0346 Other Results Laboratory Tests Test 08/05/17 13:50 08/05/17 17:40 08/05/17 21:00 08/06/17 03:46 White Blood Count 7.1 TH/MM3 7.6 TH/MM3 Red Blood Count 5.08 MIL/MM3 5.03 MIL/MM3 Hemoglobin 14.2 GM/DL 14.0 GM/DL Hematocrit 42.8 % 42.6 % Mean Corpuscular Volume 84.2 FL 84.5 FL Mean Corpuscular Hemoglobin 27.9 PG 27.8 PG Mean Corpuscular Hemoglobin Concent 33.2 % 32.9 % Red Cell Distribution Width 14.2 % 13.9 % Platelet Count 226 TH/MM3 203 TH/MM3 Mean Platelet Volume 8.0 FL 7.9 FL Neutrophils (%) (Auto) 61.7 % 61.7 % Lymphocytes (%) (Auto) 20.3 % 18.2 % Monocytes (%) (Auto) 12.4 % 13.3 % Eosinophils (%) (Auto) 4.3 % 5.4 % Basophils (%) (Auto) 1.3 % 1.4 % Neutrophils # (Auto) 4.4 TH/MM3 4.7 TH/MM3 Lymphocytes # (Auto) 1.4 TH/MM3 1.4 TH/MM3 Monocytes # (Auto) 0.9 TH/MM3 1.0 TH/MM3 Eosinophils # (Auto) 0.3 TH/MM3 0.4 TH/MM3 Basophils # (Auto) 0.1 TH/MM3 0.1 TH/MM3 CBC Comment DIFF FINAL DIFF FINAL Differential Comment Prothrombin Time 9.8 SEC Prothromb Time International Ratio 0.9 RATIO Activated Partial Thromboplast Time 27.8 SEC D-Dimer Quantitative (PE/DVT) 0.63 MG/L FEU Blood Urea Nitrogen 21 MG/DL 18 MG/DL Creatinine 1.44 MG/DL 1.27 MG/DL Random Glucose 222 MG/DL 98 MG/DL Total Protein 7.3 GM/DL Albumin 3.4 GM/DL Calcium Level 8.5 MG/DL 8.3 MG/DL Magnesium Level 1.9 MG/DL 1.8 MG/DL Alkaline Phosphatase 78 U/L Aspartate Amino Transf (AST/SGOT) 24 U/L Alanine Aminotransferase (ALT/SGPT) 31 U/L Total Bilirubin 0.4 MG/DL Sodium Level 137 MEQ/L 140 MEQ/L Potassium Level 4.4 MEQ/L 3.8 MEQ/L Chloride Level 105 MEQ/L 105 MEQ/L Carbon Dioxide Level 23.3 MEQ/L 24.9 MEQ/L Anion Gap 9 MEQ/L 10 MEQ/L Estimat Glomerular Filtration Rate 47 ML/MIN 55 ML/MIN Total Creatine Kinase 175 U/L 157 U/L 170 U/L 180 U/L Creatine Kinase MB 2.2 NG/ML 2.5 NG/ML Troponin I LESS THAN 0.02 NG/ML LESS THAN 0.02 NG/ML LESS THAN 0.02 NG/ML B-Type Natriuretic Peptide 129 PG/ML Lipase 124 U/L Triglycerides Level 301 MG/DL Cholesterol Level 192 MG/DL LDL Cholesterol 95 MG/DL HDL Cholesterol 36.7 MG/DL Cholesterol/HDL Ratio 5.23 RATIO Imaging Last [address] 08/05/17 1331 Signed Impressions: Service Date/Time: July 15:49 - CONCLUSION: 1. No acute disease. 2. No evidence of acute infarct, hemorrhage, mass or edema. Rahat Méndez MD Chest X-Ray 08/05/17 1331 Signed Impressions: Service Date/Time: July 13:55 - CONCLUSION: No acute cardiopulmonary abnormality is identified. David Yates MD Cervical Spine CT 08/05/17 1331 Signed Impressions: Service Date/Time: , August 05, 2017 15:49 - CONCLUSION: 1. Stable postsurgical changes following anterior cervical fusion, wood room supervisor laminectomy and fusion. 2. No evidence of traumatic listhesis or fracture. 3. 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 Rahat Méndez MD CT Angiography 08/05/17 0000 Signed Impressions: Service Date/Time: July 15:59 - CONCLUSION: 1. No PE is identified. 2. No definite acute pulmonary abnormality is seen. There are subtle areas of groundglass attenuation bilaterally. Although nonspecific this could represent some mild edema. David Yates MD Objective Remarks GENERAL: This is a well-nourished, well-developed patient, in no apparent distress. CARDIOVASCULAR: Regular rate and rhythm RESPIRATORY: Clear to auscultation. Breath sounds equal bilaterally. No wheezes , rales, or rhonchi. GASTROINTESTINAL: Abdomen soft, non-tender, nondistended. MUSCULOSKELETAL: Extremities without clubbing, cyanosis, or edema. No joint tenderness, effusion, or edema noted. No calf tenderness. Negative Homans sign bilaterally. NEUROLOGICAL: Awake and alert. No focal deficits noted. Motor and sensory grossly within normal limits. Five out of 5 muscle strength in all muscle groups. Normal speech. A/P Problem List: (1) Chest pain ICD Codes: R07.9 - Chest pain Status: Acute Plan: patient with known cardiac disease including CABG x2, multiple cardiac stents with most stent placement circumflex 03/2017 Patient had Lexiscan today (08/06) results reviewed and Dr. Zaidi plan for cardiac catheterization on Wednesday (2) Syncope ICD Codes: R55 - Syncope Status: Acute Plan: CT head reviewed and reveals No acute disease. No evidence of acute infarct, hemorrhage, mass or edema. CT cervical spine reveals stable postsurgical changes following anterior cervical fusion, wood room supervisor laminectomy and fusion. No evidence of traumatic listhesis or fracture. 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 Orthostatic vital signs 172/85 standing and 163/65 sitting Carotid US 03/22/17 reviewed and revealed: Right carotid: no evidence of hemodynamically significant carotid stenosis. Moderate intimal hyperplasia was present with scattered calcific plaque Left carotid: no evidence for a hemodynamically significant carotid stenosis. Minimal intimal hyperplasia is present with scattered calcific plaque. Loop recorder interrogation revealed no significant arrhythmia Assessment and Plan Patient examined. Assessment and plan formulated with Julissa Cruz PA-C. I agree with the above. Problem Qualifiers (1) Chest pain: Qualified Codes: R07.9 - Chest pain, unspecified (2) Syncope: Qualified Codes: R55 - Syncope and collapse Julissa Cruz Aug 06, 2017 14:36 Low Cobian DO Aug 08, 2017 17:12
--- NOTE | 2017-08-06 14:39 | RADRPT ---
EXAM DATE/TIME: 08/06/2017 11:59 [place] COMPARISON: MYOCARDIAL PERF PHARM SPECT, GATED W/EF, February 01, 2016, 10:35. INDICATIONS : Chest pain and syncope. Angina. DOSE: 26.8 mCi Tc99m Myoview at stress. 8.5 mCi Tc99m Myoview at rest. 0.4 mg Lexiscan STRESS SYMPTOMS: Dizziness. EJECTION FRACTION: 60% MEDICAL HISTORY : Diabetes mellitus type 2. Cardiovascular disease Hypertension. TIA. SURGICAL HISTORY : CABG IVC Filter placement. ENCOUNTER: Initial ACUITY: 1 day PAIN SCALE: 1/10 LOCATION: Substernal chest TECHNIQUE: The patient underwent pharmacologic stress with infusion of prescribed dose. Continuous ECG tracing was monitored during stress. Gated SPECT imaging was performed after stress and conventional SPECT i maging was performed at rest. The examination was performed on a SPECT/CT scanner, both attenuation and non-corrected datasets were reviewed. FINDINGS: There is redistribution in the anterior wall beginning in mid ventricular wall extending to the base. Minimal redistribution is seen in the inferior wall as well. Ejection fraction is 60% with moderate inferior wall hypokinesis. CONCLUSION: Stress-induced ischemia as described above. RISK CATEGORY: Intermediate (1-3% Annual Mortality Rate) Jose Alberto Morales MD FACR on August 06, 2017 at 14:35 Board Certified Radiologist. This report was verified electronically.
--- NOTE | 2017-08-06 14:49 | ECHRPT ---
Indication: CHEST PAIN CONCLUSIONS Normal left ventricular size. Mild concentric left ventricular hypertrophy. The left ventricular systolic function is grossly normal on limited imaging. The left atrial size is moderately dilated. Moderate mitral valve regurgitation. Mild mitral annular calcification. Aortic valve sclerosis is present. Trace aortic valve regurgitation. There is trace tricuspid valve regurgitation. The estimated pulmonary arterial pressure is 39.8 mmHg. BP: 146 / 67 HR: Rhythm: Sinus MEASUREMENTS (Male / Female) Normal Values Technical Quality:Fair 2D ECHO LV Diastolic Diameter PLAX 5.6 cm 4.2 - 5.9 / 3.9 - 5.3 cm LV Systolic Diameter PLAX 3.6 cm IVS Diastolic Thickness 1.1 cm 0.6 - 1.0 / 0.6 - 0.9 cm LVPW Diastolic Thickness 1.1 cm 0.6 - 1.0 / 0.6 - 0.9 cm LV Relative Wall Thickness 0.4 LVOT Diameter 2.2 cm Aortic Root Diameter 3.1 cm LA Systolic Diameter LX 5.1 cm 3.0 - 4.0 / 2.7 - 3.8 cm M-MODE AV Cusp Separation MM 1.9 cm DOPPLER AV Peak Velocity 251.0 cm/s AV Peak Gradient 25.2 mmHg AV Mean Gradient 15.0 mmHg AV Velocity Time Integral 60.6 cm AI Peak Velocity 281.0 cm/s AI Peak Gradient 31.6 mmHg AI Pressure Half Time 749.0 ms LVOT Peak Velocity 82.0 cm/s LVOT Peak Gradient 2.7 mmHg LVOT Velocity Time Integral 15.3 cm AV Area Cont Eq vti 1.0 cm AV Area Cont Eq pk 1.2 cm Mitral E Point Velocity 75.5 cm/s Mitral A Point Velocity 36.0 cm/s Mitral E to A Ratio 2.1 LV E' Lateral Velocity 12.5 cm/s Mitral E to LV E' Lateral Ratio 6.0 LV E' Septal Velocity 4.4 cm/s Mitral E to LV E' Septal Ratio 17.2 TR Peak Velocity 273.0 cm/s TR Peak Gradient 29.8 mmHg Right Atrial Pressure 10.0 mmHg Pulmonary Artery Systolic Pressu 39.8 mmHg Right Ventricular Systolic Press 39.8 mmHg PV Peak Velocity 75.2 cm/s PV Peak Gradient 2.3 mmHg FINDINGS LEFT VENTRICLE Normal left ventricular size. Mild concentric left ventricular hypertrophy. The left ventricular systolic function is grossly normal on limited imaging. RIGHT VENTRICLE Normal right ventricular size and systolic function. LEFT ATRIUM The left atrial size is moderately dilated. RIGHT ATRIUM The right atrial size is normal. ATRIAL SEPTUM Normal atrial septal thickness without atrial level shunting by limited color doppler interrogation. AORTA The aortic root and proximal ascending aorta are normal in size on limited imaging. MITRAL VALVE Moderate mitral valve regurgitation. Mild mitral annular calcification. AORTIC VALVE Aortic valve sclerosis is present. Trace aortic valve regurgitation. TRICUSPID VALVE There is trace tricuspid valve regurgitation. The estimated pulmonary arterial pressure is 39.8 mmHg. PULMONARY VALVE No pulmonary valve regurgitation or stenosis. VESSELS The inferior vena cava is normal in size. PERICARDIUM No pericardial effusion. Samson Rojo MD (Electronically Signed) Final Date:06 August 2017 14:47
--- NOTE | 2017-08-06 18:11 | EKG ---
Date Performed: 08/05/2017 Time Performed: 20:57:31 PTAGE: 77 years EKG: SINUS BRADYCARDIA RIGHT BUNDLE BRANCH BLOCK ABNORMAL ECG PREVIOUS TRACING : 08/05/2017 17.27 DOCTOR: Poornima Do Interpretating Date/Time 08/06/2017 18:09:38
--- NOTE | 2017-08-06 18:17 | EKG ---
Date Performed: 08/05/2017 Time Performed: 17:27:41 PTAGE: 77 years EKG: SINUS BRADYCARDIA INDETERMINATE AXIS RIGHT BUNDLE BRANCH BLOCK MODERATE VOLTAGE CRITERIA FO R LVH, CONSIDER NORMAL VARIANT INFERIOR MYOCARDIAL INFARCTION ABNORMAL ECG PREVIOUS TRACING : 08/05/2017 13.30 DOCTOR: Poornima Do Interpretating Date/Time 08/06/2017 18:14:02
--- NOTE | 2017-08-06 18:23 | EKG ---
Date Performed: 08/05/2017 Time Performed: 13:30:17 PTAGE: 77 years EKG: Sinus rhythm RIGHT BUNDLE BRANCH BLOCK ABNORMAL ECG PREVIOUS TRACING : 12/09/2016 17.52 DOCTOR: Poornima Do Interpretating Date/Time 08/06/2017 18:17:07
[2017-08-07] VITALS (9 sets, daily range): BP systolic 150–179; BP diastolic 73–82; PULSE 78–96; RESP 16–18; TEMP 98–98.8; O2SAT 93–98
[2017-08-07] MEDS: MORPHINE SULFATE 4 MG/ML INJ IV PUSH PRN ×5 (03:04→21:22)
[2017-08-07] MEDS: INSULIN ASPART SUPPLEMENTAL SCALE SQ SCH ×4 (08:00→20:06)
[2017-08-07] MEDS: ONDANSETRON HCL 4 MG/2 ML VIAL IV PUSH PRN ×3 (08:22→23:25)
[2017-08-07] MEDS: SODIUM CHLORIDE 0.9% FLUSH 10 ML FLUSH IV FLUSH SCH ×2 (09:00→20:06)
[2017-08-07] MEDS: amLODIPine BESYLATE 5 MG TAB PO SCH (09:10)
[2017-08-07] MEDS: ASPIRIN 325 MG TAB PO SCH (09:11)
[2017-08-07] MEDS: PANTOPRAZOLE SOD 20 MG DELAYED RELEASE TAB PO SCH (09:11)
--- NOTE | 2017-08-07 12:50 | HHI.PR ---
Subjective Remarks Patient continues to c/o right sided neck pain which is chronic- seems to be worsened by position in bed Offers no other complaints at this time Objective Vitals Vital Signs Date Time Temp Pulse Resp B/P (MAP) Pulse Ox O2 Delivery O2 Flow Rate FiO2 08/07/17 12:00 98.8 84 18 163/82 (109) 98 08/07/17 10:00 95 Nasal Cannula 2.00 08/07/17 08:00 98.2 84 18 179/81 (113) 93 08/07/17 04:20 98.2 78 16 161/74 (103) 93 08/07/17 00:00 Nasal Cannula 2.00 08/06/17 23:18 97.7 67 16 159/72 (101) 97 08/06/17 20:00 69 08/06/17 20:00 Nasal Cannula 2.00 08/06/17 19:55 97.1 70 16 177/82 (113) 97 174/82 (112) 168/81 (110) 08/06/17 16:00 98.4 82 20 168/70 (102) 95 158/72 (100) 152/70 (97) Result Diagram: 08/06/17 0346 08/06/17 0346 Other Results Laboratory Tests Test 08/05/17 13:50 08/05/17 17:40 08/05/17 21:00 08/06/17 03:46 White Blood Count 7.1 TH/MM3 7.6 TH/MM3 Red Blood Count 5.08 MIL/MM3 5.03 MIL/MM3 Hemoglobin 14.2 GM/DL 14.0 GM/DL Hematocrit 42.8 % 42.6 % Mean Corpuscular Volume 84.2 FL 84.5 FL Mean Corpuscular Hemoglobin 27.9 PG 27.8 PG Mean Corpuscular Hemoglobin Concent 33.2 % 32.9 % Red Cell Distribution Width 14.2 % 13.9 % Platelet Count 226 TH/MM3 203 TH/MM3 Mean Platelet Volume 8.0 FL 7.9 FL Neutrophils (%) (Auto) 61.7 % 61.7 % Lymphocytes (%) (Auto) 20.3 % 18.2 % Monocytes (%) (Auto) 12.4 % 13.3 % Eosinophils (%) (Auto) 4.3 % 5.4 % Basophils (%) (Auto) 1.3 % 1.4 % Neutrophils # (Auto) 4.4 TH/MM3 4.7 TH/MM3 Lymphocytes # (Auto) 1.4 TH/MM3 1.4 TH/MM3 Monocytes # (Auto) 0.9 TH/MM3 1.0 TH/MM3 Eosinophils # (Auto) 0.3 TH/MM3 0.4 TH/MM3 Basophils # (Auto) 0.1 TH/MM3 0.1 TH/MM3 CBC Comment DIFF FINAL DIFF FINAL Differential Comment Prothrombin Time 9.8 SEC Prothromb Time International Ratio 0.9 RATIO Activated Partial Thromboplast Time 27.8 SEC D-Dimer Quantitative (PE/DVT) 0.63 MG/L FEU Blood Urea Nitrogen 21 MG/DL 18 MG/DL Creatinine 1.44 MG/DL 1.27 MG/DL Random Glucose 222 MG/DL 98 MG/DL Total Protein 7.3 GM/DL Albumin 3.4 GM/DL Calcium Level 8.5 MG/DL 8.3 MG/DL Magnesium Level 1.9 MG/DL 1.8 MG/DL Alkaline Phosphatase 78 U/L Aspartate Amino Transf (AST/SGOT) 24 U/L Alanine Aminotransferase (ALT/SGPT) 31 U/L Total Bilirubin 0.4 MG/DL Sodium Level 137 MEQ/L 140 MEQ/L Potassium Level 4.4 MEQ/L 3.8 MEQ/L Chloride Level 105 MEQ/L 105 MEQ/L Carbon Dioxide Level 23.3 MEQ/L 24.9 MEQ/L Anion Gap 9 MEQ/L 10 MEQ/L Estimat Glomerular Filtration Rate 47 ML/MIN 55 ML/MIN Total Creatine Kinase 175 U/L 157 U/L 170 U/L 180 U/L Creatine Kinase MB 2.2 NG/ML 2.5 NG/ML Troponin I LESS THAN 0.02 NG/ML LESS THAN 0.02 NG/ML LESS THAN 0.02 NG/ML B-Type Natriuretic Peptide 129 PG/ML Lipase 124 U/L Triglycerides Level 301 MG/DL Cholesterol Level 192 MG/DL LDL Cholesterol 95 MG/DL HDL Cholesterol 36.7 MG/DL Cholesterol/HDL Ratio 5.23 RATIO Imaging Last [address] 08/05/17 1331 Signed Impressions: Service Date/Time: July 15:49 - CONCLUSION: 1. No acute disease. 2. No evidence of acute infarct, hemorrhage, mass or edema. Rahat Méndez MD Chest X-Ray 08/05/17 1331 Signed Impressions: Service Date/Time: July 13:55 - CONCLUSION: No acute cardiopulmonary abnormality is identified. David Yates MD Cervical Spine CT 08/05/17 1331 Signed Impressions: Service Date/Time: July 15:49 - CONCLUSION: 1. Stable postsurgical changes following anterior cervical fusion, adult crossing guard laminectomy and fusion. 2. No evidence of traumatic listhesis or fracture. 3. 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 Rahat Méndez MD CT Angiography 08/05/17 0000 Signed Impressions: Service Date/Time: July 15:59 - CONCLUSION: 1. No PE is identified. 2. No definite acute pulmonary abnormality is seen. There are subtle areas of groundglass attenuation bilaterally. Although nonspecific this could represent some mild edema. David Yates MD Objective Remarks GENERAL: This is a well-nourished, well-developed patient, in no apparent distress. CARDIOVASCULAR: Regular rate and rhythm RESPIRATORY: Clear to auscultation. Breath sounds equal bilaterally. No wheezes , rales, or rhonchi. GASTROINTESTINAL: Abdomen soft, non-tender, nondistended. MUSCULOSKELETAL: Extremities without clubbing, cyanosis, or edema. No joint tenderness, effusion, or edema noted. No calf tenderness. Negative Homans sign bilaterally. NEUROLOGICAL: Awake and alert. No focal deficits noted. Motor and sensory grossly within normal limits. Five out of 5 muscle strength in all muscle groups. Normal speech. A/P Problem List: (1) Chest pain ICD Codes: R07.9 - Chest pain Status: Acute Plan: patient with known cardiac disease including CABG x2, multiple cardiac stents with most stent placement circumflex 03/2017 Patient had Lexiscan today (08/06) results reviewed and Dr. 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 No evidence of acute infarct, hemorrhage, mass or edema. CT cervical spine reveals stable postsurgical changes following anterior cervical fusion, adult crossing guard laminectomy and fusion. No evidence of traumatic listhesis or fracture. 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 Orthostatic vital signs 172/85 standing and 163/65 sitting Carotid US 03/22/17 reviewed and revealed: Right carotid: no evidence of hemodynamically significant carotid stenosis. Moderate intimal hyperplasia was present with scattered calcific plaque Left carotid: no evidence for a hemodynamically significant carotid stenosis. Minimal intimal hyperplasia is present with scattered calcific plaque. Loop recorder interrogation revealed no significant arrhythmia (3) HTN (hypertension) ICD Codes: I10 - Hypertension Status: Chronic Plan: HTN Patient with HTN despite home dose of amlodipine will DC amlodipine and start Procardia XL 30 mg PO monitor BP trend (4) Neck pain ICD Codes: M54.2 - Cervicalgia Status: Acute Plan: acetaminophen as needed for pain reposition encourage OOB heating pad if needed Assessment and Plan Patient examined. Assessment and plan formulated with Julissa Cruz PA-C. I agree with the above. Problem Qualifiers (1) Chest pain: Qualified Codes: R07.9 - Chest pain, unspecified (2) Syncope: Qualified Codes: R55 - Syncope and collapse Julissa Cruz Aug 07, 2017 12:50 Low Cobian DO Aug 08, 2017 17:13
[2017-08-07] MEDS: NIFEdipine 30 MG SUSTAINED RELEASE TAB PO SCH (13:03)
[2017-08-07] MEDS: SODIUM CHLOR 0.45% 1000 ML INJ 1,000 ML IV SCH ×2 (13:04→21:45)
[2017-08-07] MEDS: ACETAMINOPHEN 500 MG CPLT PO PRN (20:05)
[2017-08-08] VITALS (25 sets, daily range): BP systolic 126–160; BP diastolic 60–76; PULSE 84–99; RESP 16–19; TEMP 97.8–98.8; O2SAT 94–98
[2017-08-08] MEDS: MORPHINE SULFATE 4 MG/ML INJ IV PUSH PRN ×5 (01:32→20:08)
[2017-08-08] MEDS: SODIUM CHLOR 0.45% 1000 ML INJ 1,000 ML IV SCH ×2 (01:40→17:10)
[2017-08-08] MEDS: ONDANSETRON HCL 4 MG/2 ML VIAL IV PUSH PRN (05:46)
[2017-08-08] MEDS: INSULIN ASPART SUPPLEMENTAL SCALE SQ SCH ×4 (08:00→20:21)
[2017-08-08 09:19] LABS: AUTOMATED NEUTROPHIL # 4.1 TH/MM3 (1.8-7.7); BASOPHIL # 0.1 TH/MM3 (0-0.2); EOSINOPHIL # 0.2 TH/MM3 (0-0.4); EOSINOPHIL % 3.2 % (0.0-4.0); HEMO FLAGS DIFF FINAL; LYMPH % 15.6 % (9.0-44.0); MEAN CELL VOLUME 85.2 FL (80.0-100.0); MEAN CORPUSCULAR HEMOGLOBIN 27.9 PG (27.0-34.0); MEAN CORPUSCULAR HGB CONC 32.8 % (32.0-36.0); MONO % 17.2 % (0.0-8.0); PLATELET COUNT 204 TH/MM3 (150-450); RED BLOOD COUNT 5.05 MIL/MM3 (4.50-5.90); WHITE BLOOD COUNT 6.5 TH/MM3 (4.0-11.0)
[2017-08-08] MEDS: PANTOPRAZOLE SOD 20 MG DELAYED RELEASE TAB PO SCH (09:35)
[2017-08-08] MEDS: SODIUM CHLORIDE 0.9% FLUSH 10 ML FLUSH IV FLUSH SCH ×2 (09:35→21:00)
[2017-08-08] MEDS: ASPIRIN 325 MG TAB PO SCH (09:35)
[2017-08-08] MEDS: NIFEdipine 30 MG SUSTAINED RELEASE TAB PO SCH (09:35)
[2017-08-08 09:41] LABS: BICARBONATE 23.1 MEQ/L (21.0-32.0); MAGNESIUM 1.8 MG/DL (1.5-2.5); POTASSIUM 3.7 MEQ/L (3.5-5.1)
--- NOTE | 2017-08-08 10:30 | PD.CARD.PN ---
Subjective Subjective Remarks on and off chest pain neck pain/head pain sitting up in chair requesting more narcotics Objective Medications Current Medications Medications (Trade) Dose Ordered Sig/Gaston Route Start Time Stop Time Status Last Admin (NS Flush) 2 ml BID IV FLUSH 08/05/17 21:00 08/08/17 09:35 (NS Flush) 2 ml UNSCH PRN IV FLUSH 08/05/17 16:45 08/06/17 01:23 (Aspirin) 325 mg DAILY PO 08/06/17 09:00 08/08/17 09:35 (Nitrostat Sl) 0.4 mg Q5M PRN SL 08/05/17 16:45 (Tylenol) 500 mg Q4H PRN PO 08/05/17 16:45 08/07/17 20:05 (NovoLOG SUPPLEMENTAL SCALE) 1 ACHS SLIDING SCALE SQ 08/05/17 17:00 08/06/17 18:06 (Protonix) 20 mg DAILY PO 08/06/17 09:00 08/08/17 09:35 Patient Own Medication PT OWN MED: ([id number]... Q6HR PO 08/05/17 18:00 Future Hold (Morphine Inj) 4 mg Q4HR PRN IV PUSH 08/05/17 19:45 08/08/17 09:35 (Zofran Inj) 4 mg Q6HR PRN IV PUSH 08/05/17 19:45 08/08/17 05:46 Sodium Chloride 1,000 ml @ 84 mls/hr [id number] IV 08/06/17 10:00 08/08/17 01:40 (Procardia Xl) 30 mg DAILY PO 08/07/17 10:45 08/08/17 09:35 Vital Signs / I&O Vital Signs Date Time Temp Pulse Resp B/P (MAP) Pulse Ox O2 Delivery O2 Flow Rate FiO2 08/08/17 08:00 94 08/08/17 07:00 97 Nasal Cannula 2.00 08/08/17 07:00 98.6 92 16 135/62 (86) 97 08/08/17 07:00 92 08/08/17 06:08 93 08/08/17 05:01 85 08/08/17 04:07 84 08/08/17 03:58 91 08/08/17 03:58 98.2 88 19 128/68 (88) 94 08/08/17 02:01 90 08/08/17 01:30 98 08/08/17 00:00 86 08/07/17 23:45 96 Nasal Cannula 2.00 08/07/17 23:45 98.3 90 16 165/74 (104) 96 08/07/17 23:45 90 08/07/17 23:20 98.3 90 18 165/74 (104) 96 08/07/17 23:20 96 Nasal Cannula 2.00 08/07/17 22:00 88 08/07/17 21:50 98.0 96 17 150/73 (98) 93 Manual Cuff/Auscultation 08/07/17 21:00 84 08/07/17 20:08 Nasal Cannula 2.00 08/07/17 16:00 98.7 80 18 158/76 (103) 97 08/07/17 12:00 98.8 84 18 163/82 (109) 98 I/O 08/07/17 08/07/17 08/07/17 08/08/17 08/08/17 08/08/17 07:00 15:00 23:00 07:00 15:00 23:00 Intake Total 480 ml 960 ml 935 ml Output Total 925 ml 1500 ml 550 ml Balance -445 ml -540 ml 385 ml Intake Oral 480 ml 960 ml 420 ml IV Total 515 ml Output Urine Total 925 ml 1500 ml 550 ml # Bowel Movements 0 0 Physical Exam GENERAL: SKIN: Warm and dry. HEAD: Normocephalic. EYES: No scleral icterus. No injection or drainage. NECK: Supple, trachea midline. No JVD or lymphadenopathy. CARDIOVASCULAR: Regular rate and rhythm 2/6 SM RESPIRATORY: Breath sounds equal bilaterally. No accessory muscle use. GASTROINTESTINAL: Abdomen soft, non-tender, nondistended. MUSCULOSKELETAL: No cyanosis, or edema. BACK: Nontender without obvious deformity. No CVA tenderness. Laboratory Laboratory Tests Test 08/08/17 07:55 White Blood Count 6.5 TH/MM3 Red Blood Count 5.05 MIL/MM3 Hemoglobin 14.1 GM/DL Hematocrit 43.0 % Mean Corpuscular Volume 85.2 FL Mean Corpuscular Hemoglobin 27.9 PG Mean Corpuscular Hemoglobin Concent 32.8 % Red Cell Distribution Width 14.0 % Platelet Count 204 TH/MM3 Mean Platelet Volume 7.9 FL Neutrophils (%) (Auto) 63.0 % Lymphocytes (%) (Auto) 15.6 % Monocytes (%) (Auto) 17.2 % Eosinophils (%) (Auto) 3.2 % Basophils (%) (Auto) 1.0 % Neutrophils # (Auto) 4.1 TH/MM3 Lymphocytes # (Auto) 1.0 TH/MM3 Monocytes # (Auto) 1.1 TH/MM3 Eosinophils # (Auto) 0.2 TH/MM3 Basophils # (Auto) 0.1 TH/MM3 CBC Comment DIFF FINAL Differential Comment Blood Urea Nitrogen 11 MG/DL Creatinine 1.15 MG/DL Random Glucose 132 MG/DL Calcium Level 8.3 MG/DL Magnesium Level 1.8 MG/DL Sodium Level 135 MEQ/L Potassium Level 3.7 MEQ/L Chloride Level 103 MEQ/L Carbon Dioxide Level 23.1 MEQ/L Anion Gap 9 MEQ/L Estimat Glomerular Filtration Rate 61 ML/MIN Imaging Last Impressions Myocardial Perfusion Scan Nuc Med 08/06/17 0000 Signed Impressions: Service Date/Time: Sunday, August 06, 2017 11:59 - CONCLUSION: Stress-induced ischemia as described above. RISK CATEGORY: Intermediate (1-3%% Annual Mortality Rate) Jose Alberto Morales MD FACR Head CT 08/05/[id number] Signed Impressions: Service Date/Time: July 15:49 - CONCLUSION: 1. No acute disease. 2. No evidence of acute infarct, hemorrhage, mass or edema. Rahat Méndez MD Chest X-Ray 08/05/[id number] Signed Impressions: Service Date/Time: July 13:55 - CONCLUSION: No acute cardiopulmonary abnormality is identified. David Yates MD Cervical Spine CT 08/05/171330 Signed Impressions: Service Date/Time: July 15:49 - CONCLUSION: 1. Stable postsurgical changes following anterior cervical fusion, sugar laboratory assistant laminectomy and fusion. 2. No evidence of traumatic listhesis or fracture. 3. 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 Rahat Méndez MD CT Angiography 08/05/17 0000 Signed Impressions: Service Date/Time: July 15:59 - CONCLUSION: 1. No PE is identified. 2. No definite acute pulmonary abnormality is seen. There are subtle areas of groundglass attenuation bilaterally. Although nonspecific this could represent some mild edema. David Yates MD Assessment and Plan Assessment and Plan chest pain - abnormal lexiscan. Plan for C with Dr. ambrose tomorrow NPO p MN continue current medical mgt refusing several medications requesting narcotics for pain Juan Pollock MD Aug 08, 2017 10:30
--- NOTE | 2017-08-08 17:17 | HHI.PR ---
Subjective Remarks Pt transferred to [facility] d/t self limiting episodes of VT overnight. Pt had one episode of VT this AM. Pt now c/o recurrent chest pain with SOB. no n/v or diaphoresis Pt requesting narcotics and asking if anything stronger is available. Pt continues to c/o posterior neck pain. Objective Vitals Vital Signs Date Time Temp Pulse Resp B/P (MAP) Pulse Ox O2 Delivery O2 Flow Rate FiO2 08/08/17 16:00 92 08/08/17 15:00 98.7 99 16 150/70 (96) 98 08/08/17 15:00 99 08/08/17 14:00 90 08/08/17 13:58 16 08/08/17 13:00 93 08/08/17 12:00 95 08/08/17 11:00 97.8 97 16 126/60 (82) 98 08/08/17 11:00 90 08/08/17 10:00 93 08/08/17 09:00 95 08/08/17 08:00 94 08/08/17 07:00 97 Nasal Cannula 2.00 08/08/17 07:00 98.6 92 16 135/62 (86) 97 08/08/17 07:00 92 08/08/17 06:08 93 08/08/17 05:01 85 08/08/17 04:07 84 08/08/17 03:58 91 08/08/17 03:58 98.2 88 19 128/68 (88) 94 08/08/17 02:01 90 08/08/17 01:30 98 08/08/17 00:00 86 08/07/17 23:45 96 Nasal Cannula 2.00 08/07/17 23:45 98.3 90 16 165/74 (104) 96 08/07/17 23:45 90 08/07/17 23:20 98.3 90 18 165/74 (104) 96 08/07/17 23:20 96 Nasal Cannula 2.00 08/07/17 22:00 88 08/07/17 21:50 98.0 96 17 150/73 (98) 93 Manual Cuff/Auscultation 08/07/17 21:00 84 08/07/17 20:08 Nasal Cannula 2.00 Result Diagram: 08/08/17 0755 08/08/17 0755 Imaging Last [address] 08/05/17 1331 Signed Impressions: Service Date/Time: July 15:49 - CONCLUSION: 1. No acute disease. 2. No evidence of acute infarct, hemorrhage, mass or edema. Rahat Méndez MD Chest X-Ray 08/05/17 1331 Signed Impressions: Service Date/Time: July 13:55 - CONCLUSION: No acute cardiopulmonary abnormality is identified. David Yates MD Cervical Spine CT 08/05/17 1331 Signed Impressions: Service Date/Time: July 15:49 - CONCLUSION: 1. Stable postsurgical changes following anterior cervical fusion, clinical quality analyst laminectomy and fusion. 2. No evidence of traumatic listhesis or fracture. 3. 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 Rahat Méndez MD CT Angiography 08/05/17 0000 Signed Impressions: Service Date/Time: July 15:59 - CONCLUSION: 1. No PE is identified. 2. No definite acute pulmonary abnormality is seen. There are subtle areas of groundglass attenuation bilaterally. Although nonspecific this could represent some mild edema. David Yates MD Objective Remarks GENERAL: This is a well-nourished, well-developed patient, in no apparent distress. CARDIOVASCULAR: Regular rate and rhythm RESPIRATORY: Clear to auscultation. Breath sounds equal bilaterally. No wheezes , rales, or rhonchi. GASTROINTESTINAL: Abdomen soft, non-tender, nondistended. MUSCULOSKELETAL: Extremities without clubbing, cyanosis, or edema. No joint tenderness, effusion, or edema noted. No calf tenderness. Negative Homans sign bilaterally. NEUROLOGICAL: Awake and alert. No focal deficits noted. Motor and sensory grossly within normal limits. Five out of 5 muscle strength in all muscle groups. Normal speech. A/P Problem List: (1) Chest pain ICD Codes: R07.9 - Chest pain Status: Acute Plan: patient with known cardiac disease including CABG x2, multiple cardiac stents with most stent placement circumflex 03/2017 Patient had Lexiscan today (08/06) results reviewed and Dr. 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 08/09/17 - DVT prophylaxis - supportive care. (2) Syncope ICD Codes: R55 - Syncope Status: Acute Plan: CT head reviewed and reveals No acute disease. No evidence of acute infarct, hemorrhage, mass or edema. CT cervical spine reveals stable postsurgical changes following anterior cervical fusion, clinical quality analyst laminectomy and fusion. No evidence of traumatic listhesis or fracture. 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 Orthostatic vital signs 172/85 standing and 163/65 sitting Carotid US 03/22/17 reviewed and revealed: Right carotid: no evidence of hemodynamically significant carotid stenosis. Moderate intimal hyperplasia was present with scattered calcific plaque Left carotid: no evidence for a hemodynamically significant carotid stenosis. Minimal intimal hyperplasia is present with scattered calcific plaque. Loop recorder interrogation revealed no significant arrhythmia (3) HTN (hypertension) ICD Codes: I10 - Hypertension Status: Chronic Plan: - improving - continue procardia XL - observe (4) Neck pain ICD Codes: M54.2 - Cervicalgia Status: Acute Plan: acetaminophen as needed for pain reposition encourage OOB heating pad if needed Problem Qualifiers (1) Chest pain: Qualified Codes: R07.9 - Chest pain, unspecified (2) Syncope: Qualified Codes: R55 - Syncope and collapse Low Cobian DO Aug 08, 2017 17:17
[2017-08-09] VITALS (22 sets, daily range): BP systolic 124–154; BP diastolic 60–73; PULSE 65–106; RESP 16–18; TEMP 97.6–99.1; O2SAT 92–99
[2017-08-09] MEDS: MORPHINE SULFATE 2 MG/ML INJ IM PRN ×4 (00:17→19:35)
[2017-08-09] MEDS: ACETAMINOPHEN 500 MG CPLT PO PRN (03:23)
[2017-08-09 05:16] LABS: BICARBONATE 24.9 MEQ/L (21.0-32.0); MAGNESIUM 1.6 MG/DL (1.5-2.5); POTASSIUM 3.6 MEQ/L (3.5-5.1)
--- NOTE | 2017-08-09 07:47 | PD.CARD.PN ---
Subjective Subjective Remarks Resting comfortably. SPECT scan suggests anterioir ischemia. Apparently having short runs of [place] over the weekend Objective Medications Current Medications Medications (Trade) Dose Ordered Sig/Gaston Route Start Time Stop Time Status Last Admin (NS Flush) 2 ml BID IV FLUSH 08/05/17 21:00 08/08/17 21:00 (NS Flush) 2 ml UNSCH PRN IV FLUSH 08/05/17 16:45 08/06/17 01:23 (Aspirin) 325 mg DAILY PO 08/06/17 09:00 08/08/17 09:35 (Nitrostat Sl) 0.4 mg Q5M PRN SL 08/05/17 16:45 (Tylenol) 500 mg Q4H PRN PO 08/05/17 16:45 08/09/17 03:23 (NovoLOG SUPPLEMENTAL SCALE) 1 ACHS SLIDING SCALE SQ 08/05/17 17:00 08/08/17 20:21 (Protonix) 20 mg DAILY PO 08/06/17 09:00 08/08/17 09:35 Patient Own Medication PT OWN MED: (Wfuwwkndwyv-Rejfw-Zo... Q6HR PO 08/05/17 18:00 Future Hold (Zofran Inj) 4 mg Q6HR PRN IV PUSH 08/05/17 19:45 08/08/17 05:46 Sodium Chloride 1,000 ml @ 84 mls/hr [id number] IV 08/06/17 10:00 08/08/17 17:10 (Procardia Xl) 30 mg DAILY PO 08/07/17 10:45 08/08/17 09:35 (Morphine Inj) 4 mg Q4H PRN IM 08/08/17 23:30 08/09/17 04:57 Vital Signs / I&O Vital Signs Date Time Temp Pulse Resp B/P (MAP) Pulse Ox O2 Delivery O2 Flow Rate FiO2 08/09/17 06:08 95 08/09/17 05:08 65 08/09/17 04:14 97 08/09/17 03:10 99.0 106 17 154/72 (99) 92 08/09/17 03:10 100 08/09/17 02:02 98 08/09/17 01:00 90 08/09/17 00:10 102 08/08/17 23:00 98 08/08/17 23:00 98.8 95 17 154/72 (99) 94 08/08/17 22:00 92 08/08/17 21:00 98 08/08/17 20:30 95 08/08/17 20:22 16 08/08/17 19:30 98.4 96 16 160/76 (104) 96 08/08/17 19:15 95 08/08/17 19:15 96 Nasal Cannula 2.00 08/08/17 18:00 90 08/08/17 17:00 97 08/08/17 16:00 92 08/08/17 15:00 98.7 99 16 150/70 (96) 98 08/08/17 15:00 99 08/08/17 14:00 90 08/08/17 13:00 93 08/08/17 12:00 95 08/08/17 11:00 97.8 97 16 126/60 (82) 98 08/08/17 11:00 90 08/08/17 10:00 93 08/08/17 09:00 95 08/08/17 08:00 94 I/O 08/08/17 08/08/17 08/08/17 08/09/17 08/09/17 08/09/17 07:00 15:00 23:00 07:00 15:00 23:00 Intake Total 935 ml 300 ml 240 ml Output Total 550 ml 500 ml 840 ml Balance 385 ml -200 ml -600 ml Intake Oral 420 ml 300 ml 240 ml IV Total 515 ml Output Urine Total 550 ml 500 ml 840 ml Physical Exam Lungs clear RRR Laboratory Laboratory Tests Test 08/08/17 07:55 08/08/17 21:40 08/09/17 04:16 White Blood Count 6.5 TH/MM3 Red Blood Count 5.05 MIL/MM3 Hemoglobin 14.1 GM/DL Hematocrit 43.0 % Mean Corpuscular Volume 85.2 FL Mean Corpuscular Hemoglobin 27.9 PG Mean Corpuscular Hemoglobin Concent 32.8 % Red Cell Distribution Width 14.0 % Platelet Count 204 TH/MM3 Mean Platelet Volume 7.9 FL Neutrophils (%) (Auto) 63.0 % Lymphocytes (%) (Auto) 15.6 % Monocytes (%) (Auto) 17.2 % Eosinophils (%) (Auto) 3.2 % Basophils (%) (Auto) 1.0 % Neutrophils # (Auto) 4.1 TH/MM3 Lymphocytes # (Auto) 1.0 TH/MM3 Monocytes # (Auto) 1.1 TH/MM3 Eosinophils # (Auto) 0.2 TH/MM3 Basophils # (Auto) 0.1 TH/MM3 CBC Comment DIFF FINAL Differential Comment Blood Urea Nitrogen 11 MG/DL 10 MG/DL Creatinine 1.15 MG/DL 1.26 MG/DL Random Glucose 132 MG/DL 157 MG/DL Calcium Level 8.3 MG/DL 8.2 MG/DL Magnesium Level 1.8 MG/DL 1.6 MG/DL Sodium Level 135 MEQ/L 135 MEQ/L Potassium Level 3.7 MEQ/L 3.6 MEQ/L Chloride Level 103 MEQ/L 99 MEQ/L Carbon Dioxide Level 23.1 MEQ/L 24.9 MEQ/L Anion Gap 9 MEQ/L 11 MEQ/L Estimat Glomerular Filtration Rate 61 ML/MIN 55 ML/MIN Troponin I LESS THAN 0.02 NG/ML Assessment and Plan Assessment and Plan Willplan cardiac cath this morning. Patient agreeable Marko Zaidi MD Aug 09, 2017 07:47
[2017-08-09] MEDS: INSULIN ASPART SUPPLEMENTAL SCALE SQ SCH ×4 (08:00→20:33)
[2017-08-09] MEDS ORDERED: MIDAZOLAM HCL 2 MG/2 ML VIAL ONE ×2 (08:17→08:43)
[2017-08-09] MEDS ORDERED: HEPARIN-NS/PF INJ 1,000 ML ONE (08:17)
[2017-08-09] MEDS ORDERED: HEPARIN SODIUM - IV 10,000 UNITS/10 ML VIAL ONE (08:49)
[2017-08-09] MEDS ORDERED: SODIUM CHLOR 0.9% 1000 ML INJ 1,000 ML IV SCH ×2 (09:00→09:11)
[2017-08-09] MEDS: SODIUM CHLORIDE 0.9% FLUSH 10 ML FLUSH IV FLUSH SCH ×2 (09:00→20:33)
[2017-08-09] MEDS ORDERED: CLOPIDOGREL 300 MG TAB ONE (09:02)
[2017-08-09] MEDS ORDERED: oxyCODONE/ACETAMINOPHEN 5 MG/325 MG TAB PO PRN (09:15)
[2017-08-09] MEDS ORDERED: CLOPIDOGREL 300 MG TAB PO ONE (09:15)
[2017-08-09] MEDS ORDERED: ATROPINE SULFATE 1 MG/ML VIAL IV PUSH PRN (09:15)
[2017-08-09] MEDS ORDERED: METOCLOPRAMIDE HCL 10 MG/2 ML VIAL IV PUSH PRN (09:15)
[2017-08-09] MEDS ORDERED: BACITRACIN OINT 0.9 GM PKT TOP ONE (09:15)
[2017-08-09] MEDS ORDERED: SODIUM CHLOR 0.9% 250 ML INJ 250 ML IV PRN (09:15)
[2017-08-09] MEDS ORDERED: MISC INFORMATION XX ONE ×2 (09:15)
[2017-08-09] MEDS ORDERED: LORazepam 2 MG/ML VIAL IV PUSH PRN (09:15)
[2017-08-09] MEDS ORDERED: LIDOCAINE 2% JELLY 30 ML TUBE TOP PRN (09:15)
[2017-08-09] MEDS ORDERED: ONDANSETRON HCL 4 MG/2 ML VIAL IV PUSH PRN (09:15)
[2017-08-09] MEDS ORDERED: LIDOCAINE HCL 1% 50 ML VIAL INFIL PRN (09:15)
--- NOTE | 2017-08-09 09:16 | CATHPROC ---
[employer] HIS Report Study Information Study Number Admission Scheduled Start Study Start [id number] Aug 05 2017 5:01PM 08/09/2017 Aug 09 2017 8:01AM [place] [facility] Cardiac Catheterization Admit Source Facility Department Emergency department [facility] - [facility] [employer] Physician and Clinical Staff Initial Marko Anne Criminal Attorney Andre Daugherty,VITALY Recorder Sena Justice,RT(R) (BS) Scrub Felipe Ferreira,RT(R) Procedures Performed Procedure Location (Site) Vessel Name Coronary Angiograms LCA Left Coronary Coronary Angiograms SVG-LAD Left Coronary Coronary Angiograms SVG-OM CIRC L Heart Cath PTCA CIRC Prox CIRC PTCA ADD ON'S Stent CIRC Prox CIRC Equipment Time Commercial Review Appraiser Description Size Mfg Part Number Used/Scraped TRANSDUCER, TRUWAVE [id number] 08:22 Vitasol * Used W/STOCKCOCK *[id number] *[id number] *[id number] *[id number] 08:22 MEDLINE INDUSTRIES PACK, CCL CUSTOM * Used *[id number] 08:22 Algentis PACER PEN, SKIN DUAL W/ RULER * Used *[id number] 08:56 MEDTRONIC BALLOON, 2.5 X 10MM EUPHORA 10MM Used *[id number] 08:53 MEDTRONIC STENT, 3.0 12 INTEGRITY 3.0 12 Used *[id number] 08:48 VidPay 30 SHYAM INDEFLATOR Used *[id number] 08:22 Splunk MEDICAL SHEATH, FR6.5 PRELUDE 11CM FR 6.5 038ACT Used *[id number] 08:22 VidPay WIRE, 3MMJ .035 180CM 180CM Used *[id number] 08:22 NAMIC MANIFOLD, 4 PORT * Used *[id number] 08:22 NYCOMED OMNIPAQUE, 350 MG, 100ML 100ML [id number] Used 08:49 NYCOMED OMNIPAQUE, 350 MG, 150ML 150ML [id number] Used 08:49 NYCOMED OMNIPAQUE, 350 MG, 150ML 150ML [id number] Used [id number] 08:22 PYLE MEDICAL BLANKET,WARM AIR CCL * Used *[id number] Equipment Model, Serial, Lot Number and Expiration Data Description Model Number Serial Number Lot Number Expiration Date STENT, 3.0 12 INTEGRITY [id number] 01-29-2019 History: Current Medications Medication Dosage/Unit Route Frequency Last Date/Time Taken ASA History: Allergies Allergy Reaction *MDRO Multi-Drug Resistant Organism lorazepam codeine Anaphylaxis hydrocodone Hives oxycodone acetaminophen tramadol HIVES, SOB hydromorphone MADE ME SICK ketorolac HIVES, SOB History: Risk Factors Family History of Hypertension Dyslipidemia Previous [place] Previous Heart Failure Premature CAD Yes Yes Yes Yes No Prior Valve Prior PCI Prior PCIDate Prior CABG Prior CABGDate Surgery No Yes 03/27/2017 Yes 07/28/2011 Cerebrovascular 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 Diabetes Disease Disease Disease No Yes No No Yes History: Stress Tests Stress or Imaging Studies Performed Yes Standard Exercise Stress Test No Stress Echo No Stress Test SPECT Stress Test SPECT Result Stress Test SPECT Ischemia Risk/Extent Yes Positive High Stress Test CMR No Cardiac CTA Coronary Calcium Score No No History: Other Current Smoker Method Quit Packs a Day Years Used Pack Years No Cigarettes 40 Years Ago 1 5 5 Labs Hgb (g/dl) Hct (%) WBC (l/cumm) Platelets (thousands) 11.60-17.00 35.00-51.00 4.00-11.00 150.00-450.00 14.1 43 6.5 204 Glucose (mg/dl) BUN (mg/dl) Creatinine (mg/dl) BUN:Creatinine (1:x) 74.00-106.00 7.00-18.00 0.50-1.30 10.00-20.00 157 10 1.2 8.3 Na (meq/l) K (meq/l) 136.00-145.00 3.50-5.10 135 3.6 INR (PTT:PT) 0.90-1.10 0.9 Troponin I (ng/ml) CPK-MB (ng/ML) 0.02-0.05 0.50-3.60 0.02 Not Drawn Medication Medication Total Dose (Bolus/Oral) Medication Total Dosage/Unit 1% XYLOCAINE 20 mL HEPARIN 6200 units PLAVIX 600 mg VERSED 3 mg Medications (Bolus/Oral) Medication Time Given Dosage/Unit Administered By Reason VERSED 08/09/2017 8:35:12 AM 2 mg Andre Daugherty 2 mg VERSED given in lab by Andre Daugherty RN in Left Antecubital via Peripheral IV. 1% XYLOCAINE 08/09/2017 8:36:40 AM 20 mL Marko Zaidi 20 mL 1% XYLOCAINE given in lab by Marko Zaidi in Right Groin via Subcutaneous. VERSED 08/09/2017 8:43:44 AM 1 mg Andre Daugherty 1 mg VERSED given in lab by Andre Daugherty RN in Left Antecubital via Peripheral IV. HEPARIN 08/09/2017 8:50:36 AM 6200 units Andre Daugherty 6200 units HEPARIN given in lab by Andre Daugherty RN in Left Antecubital via Peripheral IV. PLAVIX 08/09/2017 9:05:49 AM 600 mg Andre Daugherty 600 mg PLAVIX given in lab by Andre Daugherty RN in Left Antecubital via Oral. Medication (Drip) Medication Time Given Dosage/Unit Concentration/Unit Diluent (ml) Solution IV Solutions 08/09/2017 8:19:23 AM 0 mL (IV) 500 NaCl .9 IV Solutions given in lab by Andre Daugherty RN in Left Antecubital via Peripheral IV. Pump/Drip Flow = 20 ml/hr using NaCl .9. Initial Case Assessment Cardiovascular HR Rhythm NIBP Chest Pain 97 reg 168/82 0 Edema Present Skin color Skin None Normal Warm Dry Circulatory - Right Pulses Dorsalis Pedis Femoral 1 2 Scale (0,1,2,3,4,d) Circulatory - Left Pulses Dorsalis Pedis Femoral 1 2 Scale (0,1,2,3,4,d) Circulatory - Lower Extremities Color Lower Right Color Lower Left Normal Normal Neurological State Oriented to time-place- Alert Moves all extremities person Respiration - General Respiration Rate SpO2 (%) O2 (lpm) (B/min) 13 97 2 Chronological Log Time Study Chronological Log 8:10:00 Patient arrived via Bed. 8:10:07 Patient Name, D.O.B, / Armband Verified By R.N. 8:10:09 Consent signed by the physician and the patient and verified by the [facility] [facility] [employer] staff. 8:10:10 Disposable Defibrillator Pads Placed On Patient. 8:10:11 Pre-op and post- op instructions given; patient acknowledges understanding of instructions. 8:10:13 Verbal Stimulation=2 Physical Stimulation=2 Airway=2 Respiration=2 TOTAL=8. (0=absent, 1=li mited, 2=present) Vitals capture started with the following parameters, Patient=Adult, Interval=3 min, Initial Pr jpanqj=962 mmHg, 8:15:46 Deflation Rate=5 mmHg, Cuff placed on Right Arm 8:16:25 SR=027 bpm, WYYZ=013/82 mmhg, SpO2=89.0 %, Resp=19 B/min, Pain=0, Florin=10, Mari=2 8:19:02 Verbal Stimulation=2 Physical Stimulation=2 Airway=2 Respiration=2 TOTAL=8. (0=absent, 1=li mited, 2=present) 8:19:04 Presedation assessment performed by [facility] RN. 8:19:06 Patient has been NPO for More than 6Hrs. 8:19:06 Skin Breakdown none per pt 8:19:07 Patient Warmer Placed on the Table. 8:19:21 John Prominences Protected 8:19:22 A # 20 IV was noted in the Antecubital (left). Grade = 0 IV Solutions given in lab by Andre Daugherty, RN in Left Antecubital via Peripheral IV. Pump/Drip Flow = 20 ml/hr using 8:19:23 NaCl .9. 8:19:24 History and physical on the chart or being dictated. Assessment: Initial Case, HR=97 BPM, Rhythm=reg, RXPG=982/82 mmhg, Chest Pain=0, Edema=None, Col or=Normal, Skin = Warm, Dry Right Pulses: Jerome Ped=1, Femoral=2 Left Pulses: Jerome Ped=1, Femoral=2 8:19:25 Lower Right Extremities: Color=Normal Lower Left Extremities: Color=Normal Neurological: State=Alert, Ox3, HANKINS Respiration: Resp=13 B/min, SpO2=97 %, O2=2 lpm 8:19:28 HR=98 bpm, QASI=809/81 mmhg, SpO2=95.0 %, Resp=8 B/min, Pain=0, Florin=10, Mari=2 8:22:12 Bilateral groins prepped with 2% chlorhexidine, and draped after a 3 minute waiting time. 8:22:26 DC=688 bpm, IBEM=796/88 mmhg, SpO2=99.0 %, Resp=14 B/min, Pain=0, Florin=10, Mari=2 8:25:38 HR=99 bpm, GTHH=814/58 mmhg, SpO2=99.0 %, Resp=14 B/min, Pain=0, Florin=10, Mari=2 8:26:14 MD arrived. 8:28:13 Pressure channel 1 zeroed. 8:28:33 NQ=170 bpm, HHVA=531/79 mmhg, SpO2=99.0 %, Resp=13 B/min, Pain=0, Florin=10, Mari=2 8:29:30 Reference ECG taken 8:31:31 HR=95 bpm, GWMS=139/79 mmhg, SpO2=96.0 %, Resp=13 B/min, Pain=0, Florin=10, Mari=2 8:34:35 VE=429 bpm, OEWN=854/59 mmhg, SpO2=97.0 %, Resp=13 B/min, Pain=0, Florin=10, Mari=2 8:35:12 2 mg VERSED given in lab by Andre Daugherty, RN in Left Antecubital via Peripheral IV. Time Out. Correct patient, correct procedure, correct physician, power injector not loaded with contrast with surgical 8:35:28 team present. Time Out Concurred by MD and individual staff in procedure. 8:35:41 Case Start 8:36:40 20 mL 1% XYLOCAINE given in lab by Marko Zaidi in Right Groin via Subcutaneous. 8:37:33 HR=95 bpm, EOHO=060/74 mmhg, SpO2=95.0 %, Resp=13 B/min, Pain=0, Florin=10, Mari=2 8:40:14 Access site was Right Femoral Artery. 8:40:21 A SHEATH, FR6.5 PRELUDE 11CM FR 6.5 was advanced into the Fem Art (right) using the Percutan eous technique. 8:40:31 HR=60 bpm, USZX=553/67 mmhg, SpO2=97.0 %, Resp=17 B/min, Pain=0, Florin=10, Mari=2 A JL 4.0 INFINITI CATHETER FR 6 was advanced over a wire. OMNIPAQUE, 350 MG, 100ML 100ML was use d for 8:40:46 injections. Recorded Pressure: Ao, HR=24, Condition=Condition 1 8:41:32 (Aorta) Ao 140/55/90 8:41:59 The LCA was injected and visualized at various angles. OMNIPAQUE, 350 MG, 100ML 100ML used. 8:43:09 Catheter was removed 8:43:30 HR=40 bpm, CNXE=113/66 mmhg, SpO2=96.0 %, Resp=12 B/min, Pain=0, Florin=10, Mari=2 8:43:44 1 mg VERSED given in lab by Andre Daugherty, RN in Left Antecubital via Peripheral IV. A JR 4.0 INFINITI CATHETER FR 6 was advanced over a wire. OMNIPAQUE, 350 MG, 100ML 100ML was use d for 8:45:11 injections. 8:46:14 The SVG-OM was injected and visualized at various angles. OMNIPAQUE, 350 MG, 100ML 100ML use d. 8:46:30 HR=50 bpm, ESFN=588/68 mmhg, SpO2=91.0 %, Resp=12 B/min, Pain=0, Florin=10, Mari=2 8:47:38 The SVG-LAD was injected and visualized at various angles. OMNIPAQUE, 350 MG, 100ML 100ML us ed. 8:48:15 OMNIPAQUE, 350 MG, 150ML 150ML and 30 SHYAM INDEFLATOR added. 8:48:23 Catheter was removed 8:49:26 HR=93 bpm, CDFU=995/73 mmhg, SpO2=89.0 %, Resp=15 B/min, Pain=0, Florin=10, Mari=2 A XB 3.5 GUIDE CATHETER FR 6 was advanced over a wire. OMNIPAQUE, 350 MG, 150ML 150ML was used f or 8:50:34 injections. 8:50:36 6200 units HEPARIN given in lab by Andre Daugherty RN in Left Antecubital via Peripheral IV. 8:52:28 HR=30 bpm, WVXP=587/60 mmhg, SpO2=86.0 %, Resp=15 B/min, Pain=0, Florin=10, Mari=2 An STENT, 3.0 12 INTEGRITY 3.0 12 Bare Metal Stent was inserted through a XB 3.5 GUIDE CATHETER FR 6 over a 8:53:12 WIRE, 3MMJ .035 180CM 180CM. 8:55:31 HR=93 bpm, LVGE=088/65 mmhg, SpO2=97.0 %, Resp=11 B/min, Pain=0, Florin=10, Mari=2 8:55:49 Stent not deployed. Stent removed and intact. 8:56:05 Activated Clotting Time Drawn A BALLOON, 2.5 X 10MM EUPHORA 10MM over a WIRE, 3MMJ .035 180CM 180CM in the CIRC Prox was infla sim using 8:57:31 a 30 SHYAM INDEFLATOR at 13 shyam for 15 sec. 8:58:06 Balloon Removed An STENT, 3.0 12 INTEGRITY 3.0 12 Bare Metal Stent was inserted through a XB 3.5 GUIDE CATHETER FR 6 over a 8:58:20 WIRE, 3MMJ .035 180CM 180CM. 8:58:25 HR=90 bpm, FXEG=594/68 mmhg, SpO2=96.0 %, Resp=11 B/min, Pain=0, Florin=10, Mari=2 A STENT, 3.0 12 INTEGRITY 3.0 12 was deployed using a 30 SHYAM INDEFLATOR at 13 atmospheres for 15 seconds in 9:00:42 the CIRC Prox. 9:01:29 HR=31 bpm, XFHQ=458/69 mmhg, SpO2=97.0 %, Resp=29 B/min, Pain=0, Florin=10, Amri=2 9:02:15 Delivery device removed 9:04:15 Case End 9:04:22 CPCU called. Spoke to Chiquita. Advised a-line needed. 9:04:29 OA=665 bpm, BFKM=593/64 mmhg, SpO2=97.0 %, Resp=19 B/min, Pain=0, Florin=10, Mari=2 9:05:26 Catheter(s) removed without difficulty 9:05:38 In the Fem Art (right) the SHEATH, FR6.5 PRELUDE 11CM FR 6.[address] by Marko Dubois. 9:05:44 Sterile dressing applied to site 9:05:46 No case complications noted. 9:05:49 600 mg PLAVIX given in lab by Andre Daugherty, RN in Left Antecubital via Oral. 9:05:52 Bedside Report will be given. 9:05:54 Implantable Device card placed in patient's chart. 9:05:56 Contrast Scanned 9:06:03 A Left Heart Cath was performed. 9:07:29 HR=93 bpm, LTQD=488/71 mmhg, SpO2=99.0 %, Resp=13 B/min, Pain=0, Florin=10, Mari=2 9:10:11 Vitals capture stopped. 9:10:36 Patient moved to stretcher End Study - Contrast Media Used In Study Contrast Total Opened (mL) Total Used (mL) Total Wasted (mL) Omnipaque 90 90 0 End Study - Maximum Contrast Load Max Contrast Load (mL) 370.8 End Study - Radiation Exposure Fluoro Time (minutes) 4.4 End Study - Patient Disposition Complications Transferred To Interventional Outcome No Telemetry Bed successful
[2017-08-09] MEDS: SODIUM CHLOR 0.9% 1000 ML INJ 1,000 ML IV SCH ×2 (09:30→20:34)
--- NOTE | 2017-08-09 09:30 | MA ---
cc: SHANTAL URIBE MD DATE: 08/09/2017 PROCEDURE Cardiac catheterization. PROCEDURAL STATEMENT The patient was prepped and draped in the usual fashion. A 6 sheath was inserted percutaneously in the right femoral artery. Coronary angiography was done with Valentina preformed catheters. Coronary grafts were visualized with the R4 catheter as was the mammary artery. RESULTS HEMODYNAMICS Aortic pressure is 140/55. LEFT VENTRICULOGRAPHY Left ventriculography was not done. CORONARY ANGIOGRAPHY The left main coronary demonstrated 40-50% stenosis in its body. The left anterior descending artery demonstrated a 90% stenosis in its proximal portion and then was totally occluded. The left circumflex artery demonstrated 75-80% stenosis in its proximal portion. The distal portion of the artery was free from disease. The first obtuse marginal branch was totally occluded essentially at its takeoff. The right coronary was totally occluded at its takeoff. A vein graft presumably to the right coronary was totally occluded as was a second vein graft which was of unsure anastomosis. A vein graft to the obtuse marginal branch of the circumflex was widely patent with good flow. The internal mammary artery was grafted into the LAD with excellent flow. Collateralization of the entire right coronary was seen through the distal left anterior descending. INTERVENTION It was felt that the circumflex lesion was probably the culprit lesion. Heparin was administered with an ACT of 213 seconds. Next, the 3.5 guide was used to cannulate the left main. A Selatrawater wire was advanced into the distal circumflex. Primary stenting was unable to be accomplished due to failure to pass a stent. It was predilated with a 2.5 x 9 mm compliant balloon. This resulted in a residual of approximately 50%. A 3.0 x 12 mm bare metal stent was then deployed across the lesion and included the proximal, mid and distal left main. This was dilated to 14 atmospheres. This resulted in a very good cosmetic result. YASIR-III flow was present both pre and post procedure and essentially zero residual was present. The patient left the room in good condition after the sheath was sutured into place. CONCLUSIONS Successful PTCA and stenting of a proximal left circumflex lesion as well as in the mid to distal LAD. MD CURT Valenzuela/DANISHA /9:20 AM /9:24 AM
[2017-08-09] MEDS: METOPROLOL TARTRATE 50 MG TAB PO SCH ×2 (09:38→20:33)
[2017-08-09] MEDS: NIFEdipine 30 MG SUSTAINED RELEASE TAB PO SCH (09:38)
[2017-08-09] MEDS: PANTOPRAZOLE SOD 20 MG DELAYED RELEASE TAB PO SCH (09:39)
--- NOTE | 2017-08-09 09:58 | HHI.PR ---
Subjective Remarks comfortable. falling asleep during my interview. Objective Vitals heart reg lung cta abd s/nt ext no edema Vital Signs Date Time Temp Pulse Resp B/P (MAP) Pulse Ox O2 Delivery O2 Flow Rate FiO2 08/09/17 06:08 95 08/09/17 05:08 65 08/09/17 04:14 97 08/09/17 03:10 99.0 106 17 154/72 (99) 92 08/09/17 03:10 100 08/09/17 02:02 98 08/09/17 01:00 90 08/09/17 00:10 102 08/08/17 23:00 98 08/08/17 23:00 98.8 95 17 154/72 (99) 94 08/08/17 22:00 92 08/08/17 21:00 98 08/08/17 20:30 95 08/08/17 20:22 16 08/08/17 19:30 98.4 96 16 160/76 (104) 96 08/08/17 19:15 95 08/08/17 19:15 96 Nasal Cannula 2.00 08/08/17 18:00 90 08/08/17 17:00 97 08/08/17 16:00 92 08/08/17 15:00 98.7 99 16 150/70 (96) 98 08/08/17 15:00 99 08/08/17 14:00 90 08/08/17 13:00 93 08/08/17 12:00 95 08/08/17 11:00 97.8 97 16 126/60 (82) 98 08/08/17 11:00 90 08/08/17 10:00 93 Result Diagram: 08/08/17 0755 08/09/17 0416 Imaging Last [address] 08/05/171330 Signed Impressions: Service Date/Time: July 15:49 - CONCLUSION: 1. No acute disease. 2. No evidence of acute infarct, hemorrhage, mass or edema. Rahat Méndez MD Chest X-Ray 08/05/171330 Signed Impressions: Service Date/Time: July 13:55 - CONCLUSION: No acute cardiopulmonary abnormality is identified. David Yates MD Cervical Spine CT 08/05/171330 Signed Impressions: Service Date/Time: July 15:49 - CONCLUSION: 1. Stable postsurgical changes following anterior cervical fusion, quality control tester laminectomy and fusion. 2. No evidence of traumatic listhesis or fracture. 3. 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 Rahat Méndez MD CT Angiography 08/05/17 0000 Signed Impressions: Service Date/Time: July 15:59 - CONCLUSION: 1. No PE is identified. 2. No definite acute pulmonary abnormality is seen. There are subtle areas of groundglass attenuation bilaterally. Although nonspecific this could represent some mild edema. David Yates MD Objective Remarks GENERAL: This is a well-nourished, well-developed patient, in no apparent distress. CARDIOVASCULAR: Regular rate and rhythm RESPIRATORY: Clear to auscultation. Breath sounds equal bilaterally. No wheezes , rales, or rhonchi. GASTROINTESTINAL: Abdomen soft, non-tender, nondistended. MUSCULOSKELETAL: Extremities without clubbing, cyanosis, or edema. No joint tenderness, effusion, or edema noted. No calf tenderness. Negative Homans sign bilaterally. NEUROLOGICAL: Awake and alert. No focal deficits noted. Motor and sensory grossly within normal limits. Five out of 5 muscle strength in all muscle groups. Normal speech. A/P Problem List: (1) CAD (coronary artery disease) ICD Codes: I25.10 - Atherosclerosis of coronary artery Status: Acute Plan: 1.cad. presented with cp. patient with known cardiac disease including CABG x2, multiple cardiac stents with most stent placement circumflex 03/2017 Patient had Lexiscan (08/06) positive for ischemia Discussed with patient regarding Plavix reports he has not been on Plavix for sometime and refusing at this time patient also reports he was taken off of his cholesterol medication by his tanning consultant - NSVT 08/[address] [facility] today: ptca/stenting of prox left cx lesion and mid/distal lad d/c when ok with cardiology (2) Syncope ICD Codes: R55 - Syncope Status: Acute Plan: CT head reviewed and reveals No acute disease. No evidence of acute infarct, hemorrhage, mass or edema. CT cervical spine reveals stable postsurgical changes following anterior cervical fusion, quality control tester laminectomy and fusion. No evidence of traumatic listhesis or fracture. 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 Orthostatic vital signs 172/85 standing and 163/65 sitting Carotid US 03/22/17 reviewed and revealed: Right carotid: no evidence of hemodynamically significant carotid stenosis. Moderate intimal hyperplasia was present with scattered calcific plaque Left carotid: no evidence for a hemodynamically significant carotid stenosis. Minimal intimal hyperplasia is present with scattered calcific plaque. Loop recorder interrogation revealed no significant arrhythmia (3) HTN (hypertension) ICD Codes: I10 - Hypertension Status: Chronic Plan: - improving - continue procardia XL - observe (4) Neck pain ICD Codes: M54.2 - Cervicalgia Status: Acute Plan: acetaminophen as needed for pain reposition encourage OOB heating pad if needed Problem Qualifiers (1) Syncope: Qualified Codes: R55 - Syncope and collapse Saleem Nolasco MD Aug 09, 2017 09:58
[2017-08-09] MEDS ORDERED: ASPIRIN 81 MG CHEW TAB ONE (10:33)
[2017-08-09] MEDS ORDERED: IOHEXOL 350 MG/ML 100 ML BTL (for Cath Lab) OTHER ONE (13:19)
[2017-08-09] MEDS: MORPHINE SULFATE 2 MG/ML INJ IV PRN (23:25)
[2017-08-10] VITALS (17 sets, daily range): BP systolic 139–160; BP diastolic 65–77; PULSE 68–102; RESP 16–19; TEMP 98–98.6; O2SAT 94–97
[2017-08-10] MEDS: MORPHINE SULFATE 2 MG/ML INJ IV PRN ×4 (03:15→15:43)
[2017-08-10 05:05] LABS: AUTOMATED NEUTROPHIL # 5.9 TH/MM3 (1.8-7.7); BASOPHIL # 0.1 TH/MM3 (0-0.2); EOSINOPHIL # 0.2 TH/MM3 (0-0.4); EOSINOPHIL % 2.9 % (0.0-4.0); HEMATOCRIT 42.2 % (39.0-51.0); HEMO FLAGS DIFF FINAL; LYMPH % 12.5 % (9.0-44.0); LYMPHOCYTE # 1.1 TH/MM3 (1.0-4.8); MEAN CELL VOLUME 84.5 FL (80.0-100.0); MEAN CORPUSCULAR HGB CONC 34.3 % (32.0-36.0); MONO % 14.9 % (0.0-8.0); NEUT % 68.7 % (16.0-70.0); PLATELET COUNT 211 TH/MM3 (150-450); RED BLOOD COUNT 4.99 MIL/MM3 (4.50-5.90); RED CELL DISTRIBUTION WIDTH 14.1 % (11.6-17.2); WHITE BLOOD COUNT 8.6 TH/MM3 (4.0-11.0)
[2017-08-10 05:29] LABS: BICARBONATE 25.6 MEQ/L (21.0-32.0); POTASSIUM 3.6 MEQ/L (3.5-5.1)
[2017-08-10 05:32] LABS: HDL CHOLESTEROL 42.1 MG/DL (40.0-60.0)
[2017-08-10] MEDS: INSULIN ASPART SUPPLEMENTAL SCALE SQ SCH ×2 (07:59→12:28)
[2017-08-10] MEDS ORDERED: ATOR80TA45 PO (08:01)
[2017-08-10] MEDS ORDERED: PLAV75TA29 PO (08:01)
--- NOTE | 2017-08-10 08:03 | PD.CARD.PN ---
Subjective Subjective Remarks Resting comfortably. S/P stent to LCX with bare metal stent. Complains of ongoing neck pain Objective Medications Current Medications Medications (Trade) Dose Ordered Sig/Gaston Route Start Time Stop Time Status Last Admin (NS Flush) 2 ml BID IV FLUSH 08/05/17 21:00 08/08/17 21:00 (NS Flush) 2 ml UNSCH PRN IV FLUSH 08/05/17 16:45 08/06/17 01:23 (Nitrostat Sl) 0.4 mg Q5M PRN SL 08/05/17 16:45 (Tylenol) 500 mg Q4H PRN PO 08/05/17 16:45 08/09/17 03:23 (NovoLOG SUPPLEMENTAL SCALE) 1 ACHS SLIDING SCALE SQ 08/05/17 17:00 08/09/17 20:33 (Protonix) 20 mg DAILY PO 08/06/17 09:00 08/09/17 09:39 Patient Own Medication PT OWN MED: (Oxgvzwfdphk-Soevf-Zq... Q6HR PO 08/05/17 18:00 Future Hold (Procardia Xl) 30 mg DAILY PO 08/07/17 10:45 08/09/17 09:38 (Aspirin Chew) 81 mg DAILY PO 08/10/17 09:00 (Plavix) 75 mg DAILY PO 08/10/17 09:00 (Lopressor) 50 mg BID PO 08/09/17 09:30 08/09/17 20:33 (Xylocaine 2% Jelly) 1 applic UNSCH PRN TOP 08/09/17 09:15 (Atropine Inj) 0.5 mg UNSCH PRN IV PUSH 08/09/17 09:15 Sodium Chloride 250 ml @ 500 mls/hr ONCE PRN IV 08/09/17 09:15 08/10/17 09:14 (Reglan Inj) 10 mg Q4H PRN IV PUSH 08/09/17 09:15 08/09/17 19:39 (Zofran Inj) 4 mg Q4H PRN IV PUSH 08/09/17 09:15 (Xylocaine 1% Inj (50 ml)) 10 ml UNSCH PRN INFIL 08/09/17 09:15 08/10/17 09:14 (Morphine Inj) 4 mg Q4H PRN IV 08/09/17 20:15 08/10/17 07:15 Vital Signs / I&O Vital Signs Date Time Temp Pulse Resp B/P (MAP) Pulse Ox O2 Delivery O2 Flow Rate FiO2 08/10/17 07:00 96 Room Air 08/10/17 07:00 76 08/10/17 07:00 98.4 89 19 160/77 (104) 96 08/10/17 06:14 77 08/10/17 05:08 78 08/10/17 04:18 70 08/10/17 03:34 97 Room Air 08/10/17 03:34 98.6 81 16 144/66 (92) 97 08/10/17 03:33 70 08/10/17 02:15 79 08/10/17 01:09 73 08/10/17 00:10 102 08/09/17 23:56 78 08/09/17 23:56 99.1 76 17 150/70 (96) 94 08/09/17 23:56 94 Room Air 08/09/17 22:15 74 08/09/17 21:00 92 08/09/17 20:00 94 08/09/17 19:30 95 Room Air 08/09/17 19:30 98.6 86 16 145/68 (93) 95 08/09/17 19:30 88 08/09/17 18:07 84 08/09/17 17:02 73 08/09/17 16:08 71 08/09/17 15:06 73 08/09/17 15:06 97.6 66 18 124/60 (81) 96 08/09/17 15:06 96 Nasal Cannula 2.00 08/09/17 14:12 66 08/09/17 13:08 16 08/09/17 13:05 68 08/09/17 12:04 65 08/09/17 11:32 99 Nasal Cannula 2.00 08/09/17 11:32 81 08/09/17 11:32 97.7 67 18 140/73 (95) 99 08/09/17 10:11 99 08/09/17 08:00 85 08/09/17 08:00 95 Room Air 08/09/17 08:00 98.3 96 18 139/68 (91) 95 I/O 08/09/17 08/09/17 08/09/17 08/10/17 08/10/1714/17 07:00 15:00 23:00 07:00 15:00 23:00 Intake Total 240 ml 84 ml 1560 ml 480 ml Output Total 840 ml 1600 ml 1000 ml Balance -600 ml 84 ml -40 ml -520 ml Intake Oral 240 ml 720 ml 480 ml IV Total 84 ml 840 ml Output Urine Total 840 ml 1600 ml 1000 ml # Voids 5 # Bowel Movements 0 0 Physical Exam Lungs clear RRR Groin OK Laboratory Laboratory Tests Test 08/10/17 03:30 White Blood Count 8.6 TH/MM3 Red Blood Count 4.99 MIL/MM3 Hemoglobin 14.5 GM/DL Hematocrit 42.2 % Mean Corpuscular Volume 84.5 FL Mean Corpuscular Hemoglobin 29.0 PG Mean Corpuscular Hemoglobin Concent 34.3 % Red Cell Distribution Width 14.1 % Platelet Count 211 TH/MM3 Mean Platelet Volume 7.7 FL Neutrophils (%) (Auto) 68.7 % Lymphocytes (%) (Auto) 12.5 % Monocytes (%) (Auto) 14.9 % Eosinophils (%) (Auto) 2.9 % Basophils (%) (Auto) 1.0 % Neutrophils # (Auto) 5.9 TH/MM3 Lymphocytes # (Auto) 1.1 TH/MM3 Monocytes # (Auto) 1.3 TH/MM3 Eosinophils # (Auto) 0.2 TH/MM3 Basophils # (Auto) 0.1 TH/MM3 CBC Comment DIFF FINAL Differential Comment Blood Urea Nitrogen 10 MG/DL Creatinine 1.14 MG/DL Random Glucose 173 MG/DL Calcium Level 8.2 MG/DL Sodium Level 135 MEQ/L Potassium Level 3.6 MEQ/L Chloride Level 100 MEQ/L Carbon Dioxide Level 25.6 MEQ/L Anion Gap 9 MEQ/L Estimat Glomerular Filtration Rate 62 ML/MIN Total Creatine Kinase 203 U/L Triglycerides Level 170 MG/DL Cholesterol Level 169 MG/DL LDL Cholesterol 93 MG/DL HDL Cholesterol 42.1 MG/DL Cholesterol/HDL Ratio 4.01 RATIO Assessment and Plan Assessment and Plan Stable from CV standpoint. Metoprolol restarted. Will restart atorvastatin. OK to go home from my standpoint. Will need to be on ASA and plavix for at least a month and preferably a year Marko Zaidi MD Aug 10, 2017 08:03
[2017-08-10] MEDS: PANTOPRAZOLE SOD 20 MG DELAYED RELEASE TAB PO SCH (08:44)
[2017-08-10] MEDS: NIFEdipine 30 MG SUSTAINED RELEASE TAB PO SCH (08:45)
[2017-08-10] MEDS: SODIUM CHLORIDE 0.9% FLUSH 10 ML FLUSH IV FLUSH SCH (08:45)
--- NOTE | 2017-08-10 08:59 | HHI.PR ---
Subjective Remarks complaints of ongoing neck pain radiating to scalp. demanding to see his NSG before d/c home. Objective Vitals oriented heart reg lung cta abd s/nt ext no edema Vital Signs Date Time Temp Pulse Resp B/P (MAP) Pulse Ox O2 Delivery O2 Flow Rate FiO2 08/10/17 08:00 79 08/10/17 07:30 19 08/10/17 07:00 96 Room Air 08/10/17 07:00 76 08/10/17 07:00 98.4 89 19 160/77 (104) 96 08/10/17 06:14 77 08/10/17 05:08 78 08/10/17 04:18 70 08/10/17 03:34 97 Room Air 08/10/17 03:34 98.6 81 16 144/66 (92) 97 08/10/17 03:33 70 08/10/17 02:15 79 08/10/17 01:09 73 08/10/17 00:10 102 08/09/17 23:56 78 08/09/17 23:56 99.1 76 17 150/70 (96) 94 08/09/17 23:56 94 Room Air 08/09/17 22:15 74 08/09/17 21:00 92 08/09/17 20:00 94 08/09/17 19:30 95 Room Air 08/09/17 19:30 98.6 86 16 145/68 (93) 95 08/09/17 19:30 88 08/09/17 18:07 84 08/09/17 17:02 73 08/09/17 16:08 71 08/09/17 15:06 73 08/09/17 15:06 97.6 66 18 124/60 (81) 96 08/09/17 15:06 96 Nasal Cannula 2.00 08/09/17 14:12 66 08/09/17 13:08 16 08/09/17 13:05 68 08/09/17 12:04 65 08/09/17 11:32 99 Nasal Cannula 2.00 08/09/17 11:32 81 08/09/17 11:32 97.7 67 18 140/73 (95) 99 08/09/17 10:11 99 Result Diagram: 08/10/17 0330 08/10/17 0330 Imaging Last [address] 08/05/171 Signed Impressions: Service Date/Time: July 15:49 - CONCLUSION: 1. No acute disease. 2. No evidence of acute infarct, hemorrhage, mass or edema. Rahat Méndez MD Chest X-Ray 08/05/171 Signed Impressions: Service Date/Time: July 13:55 - CONCLUSION: No acute cardiopulmonary abnormality is identified. David Yates MD Cervical Spine CT 08/05/171 Signed Impressions: Service Date/Time: July 15:49 - CONCLUSION: 1. Stable postsurgical changes following anterior cervical fusion, feller operator laminectomy and fusion. 2. No evidence of traumatic listhesis or fracture. 3. 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 Rahat Méndez MD CT Angiography 08/05/17 0000 Signed Impressions: Service Date/Time: July 15:59 - CONCLUSION: 1. No PE is identified. 2. No definite acute pulmonary abnormality is seen. There are subtle areas of groundglass attenuation bilaterally. Although nonspecific this could represent some mild edema. David Yates MD A/P Problem List: (1) CAD (coronary artery disease) ICD Codes: I25.10 - Atherosclerosis of coronary artery Status: Acute Plan: 1.cad. presented with cp. 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 will send home on bb/asa/plavix/statin Pt continues to complain about his neck/cervical pain radiating to scalp. says he passed out. His ct head and neck were reviewed. severe degenerative changes but past surgical changed appeared stable. Pt says he has had "7 injections at [facility]"....I told him to f/u with pcp and get referral to our pain medicine clinic at [facility]....discussed with dr Zaidi who also told him no plavix interruption or neck procedures for at least 30 days.....Pt demanding to see his NSG before we d/c him home.....will ask NSG for there opinion on his sx's but we don't expect any invasive interventions at this time. (2) Syncope ICD Codes: R55 - Syncope Status: Acute Plan: CT head reviewed and reveals No acute disease. No evidence of acute infarct, hemorrhage, mass or edema. CT cervical spine reveals stable postsurgical changes following anterior cervical fusion, feller operator laminectomy and fusion. No evidence of traumatic listhesis or fracture. 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 Orthostatic vital signs 172/85 standing and 163/65 sitting Carotid US 03/22/17 reviewed and revealed: Right carotid: no evidence of hemodynamically significant carotid stenosis. Moderate intimal hyperplasia was present with scattered calcific plaque Left carotid: no evidence for a hemodynamically significant carotid stenosis. Minimal intimal hyperplasia is present with scattered calcific plaque. Loop recorder interrogation revealed no significant arrhythmia (3) HTN (hypertension) ICD Codes: I10 - Hypertension Status: Chronic Plan: see above (4) Neck pain ICD Codes: M54.2 - Cervicalgia Status: Acute Plan: see above Problem Qualifiers (1) Syncope: Qualified Codes: R55 - Syncope and collapse Saleem Nolasco MD Aug 10, 2017 08:59
[2017-08-10] MEDS ORDERED: CLOPIDOGREL 75 MG TAB PO SCH (09:00)
[2017-08-10] MEDS ORDERED: ATORVASTATIN 80 MG TAB PO SCH (09:00)
[2017-08-10] MEDS ORDERED: ASPIRIN 81 MG CHEW TAB PO SCH (09:00)
[2017-08-10] MEDS ORDERED: METOPROLOL TARTRATE 50 MG TAB PO SCH (09:00)
--- NOTE | 2017-08-10 12:52 | HHI.DCPOC ---
Discharge Care Plan Diagnosis: (1) CAD (coronary artery disease) (2) Neck pain Goals to Promote Your Health * To prevent worsening of your condition and complications * To maintain your health at the optimal level Directions to Meet Your Goals Take your medications as prescribed Follow your dietary instruction Follow activity as directed Keep your appointments as scheduled Take your immunizations and boosters as scheduled If your symptoms worsen call your PCP, if no PCP go to Urgent Care Center or Emergency Room Smoking is Dangerous to Your Health. Avoid second hand smoke Call the 24-hour hour crisis hotline for domestic abuse at Saleem Nolasco MD Aug 10, 2017 12:52
--- NOTE | 2017-08-10 12:58 | HHI.FF ---
Face to Face Verification Diagnosis: (1) CAD (coronary artery disease) (2) Neck pain Physical Therapy Order: Evaluate and Treat, Improve ambulation Home Health Nursing Order: Signs/symptoms of disease process Nursing assessment with vital signs I have seen patient David Ramirez on 08/10/17. My clinical findings support the need for the requested home health care services because: Need for psychosocial assistance I certify that my clinical findings support that this patient is homebound because: Need for psychosocial assistance Saleem Nolasco MD Aug 10, 2017 12:58
--- NOTE | 2017-08-10 14:05 | EKG ---
Date Performed: 08/10/2017 Time Performed: 05:40:20 PTAGE: 77 years EKG: Sinus rhythm Right axis deviation Right bundle branch block Abnormal ECG PREVIOUS TRACING : 08/05/2017 20.57 Compared to prior tracing no significant change DOCTOR: Rodney Hutson Interpretating Date/Time 08/10/2017 14:02:06
== END 2017-08-10 15:55 | disposition home health service (06) | DRG 249 ==
LOC: NEPE 13:22 → NEDA 17:01 → N04B 22:25 → HCPC 08-07 21:43
PROVIDERS: ADMIT Hospitalist; ATTEND Hospitalist
PROC: B2131ZZ Fluoroscopy of Multiple Coronary Artery Bypass Grafts using Low Osmolar Contrast (ICD-10-PCS; 2017-08-09)
PROC: B2111ZZ Fluoroscopy of Multiple Coronary Arteries using Low Osmolar Contrast (ICD-10-PCS; 2017-08-09)
PROC: 02703DZ Dilation of Coronary Artery, One Artery with Intraluminal Device, Percutaneous Approach (ICD-10-PCS; principal; 2017-08-09 08:30)
DX: I25.10 Atherosclerotic heart disease of native coronary artery without angina pectoris (principal); I47.2 Ventricular tachycardia; I50.9 Heart failure, unspecified; E11.9 Type 2 diabetes mellitus without complications; I11.0 Hypertensive heart disease with heart failure; I25.810 Atherosclerosis of coronary artery bypass graft(s) without angina pectoris; Z79.84 Long term (current) use of oral hypoglycemic drugs; R55 Syncope and collapse; M54.2 Cervicalgia; M54.9 Dorsalgia, unspecified; G89.4 Chronic pain syndrome; Z79.82 Long term (current) use of aspirin; Z86.73 Personal history of transient ischemic attack (TIA), and cerebral infarction without residual deficits; N40.0 Benign prostatic hyperplasia without lower urinary tract symptoms; K21.9 Gastro-esophageal reflux disease without esophagitis; I25.2 Old myocardial infarction; M19.90 Unspecified osteoarthritis, unspecified site; Z95.5 Presence of coronary angioplasty implant and graft; Z98.1 Arthrodesis status
CPT/HCPCS: 70450; 71010; 71275; 72125; 76937; 78452; 80048; 80053; 80061; 82550; 82552; 82948; 83690; 83735; 83880; 84484; 85025; 85379; 85610; 85730; 92928; 93005; 93017; 93306; 93454; 96361; 96374; 96375; 99152; 99153; A9502; C1725; C1769; C1876; C1887; C1893; J1644; J1815; J2250; J2270; J2405; J2765; J2785; J3010; J7030; J7040; L0150; Q9967

== ENCOUNTER 2017-08-25 14:43 | Observation (INO) | payer MEDICARE ==
[~2017-08-25 14:43] MED LIST changes: +ATOR80TA45 PO; +PLAV75TA29 PO
[2017-08-25] MEDS ORDERED: IOHEXOL 350 MG/ML 10 ML VIAL (for RAD DIAG) IVCONTRAST ONE (15:47)
[2017-08-25 17:00] VITALS: BP 145/65; PULSE 58; RESP 18; TEMP 97.9; O2SAT 96
[2017-08-25] MEDS ORDERED: POTA1TAB77 PO (17:24)
[2017-08-25] MEDS ORDERED: NITR1CAP36 PO (17:24)
[2017-08-25] MEDS ORDERED: OMEP20TA93 PO (17:24)
[2017-08-25] MEDS ORDERED: CENTCHW3 PO (17:24)
[2017-08-25] MEDS ORDERED: VITA10002 PO (17:24)
[2017-08-25] MEDS ORDERED: TAMS0.4C4 PO (17:24)
--- NOTE | 2017-08-25 17:25 | RADRPT ---
EXAM DATE/TIME: 08/25/2017 17:05 [facility] COMPARISON: CHEST SINGLE AP, August 05, 2017, 13:55. INDICATIONS : Left side chest pain. MEDICAL HISTORY : Hypertension. Diabetes mellitus type 2. Cerebrovascular disease. SURGICAL HISTORY : Appendectomy. CABG. Cholecystectomy. ENCOUNTER: Initial ACUITY: 1 day PAIN SCORE: 10/10 LOCATION: Left chest FINDINGS: Sternal wires from previous bypass are noted. Lungs are clear without failure. Cardiac event record er is evident. There is elevation of the right hemidiaphragm. Right shoulder surgery is noted. Pos terior lower spinal fixation is evident. CONCLUSION: Previous bypass otherwise negative Jose Alberto Morales MD FACR on August 25, 2017 at 17:22 Board Certified Radiologist. This report was verified electronically.
--- NOTE | 2017-08-25 17:25 | HHI.HP ---
HPI Primary Care Physician Unknown Chief Complaint Chest pain History of Present Illness This is a 77-year-old male with known history of CAD that presents to the chest pain center directly after being evaluated by Dr. Marko Zaidi in his office for chest discomfort. States that 2 nights ago he had a couple "zingers" that were split-second long duration discomforts in his chest that he thought nothing about. Then yesterday evening developed a pressure in the center of his chest that radiated up into his jaw and down the left arm while he is walking to his couch at home. Lasted 15 minutes exactly. States he time. Was short of breath, nauseous, and diaphoretic. He was able to go to sleep. When he woke up this morning he felt fine but then a little later developed the same type discomfort lasting no more than 15 minutes. This continued to recur several times throughout the day. He by Dr. Zaidi in the office and told to come to the chest pain center. States that the discomfort recurred while in the chest pain center and is still there at this time. An EKG reviewed by Dr. Zaidi at this time as a sinus rhythm, right bundle branch block without significant ST segment depressions or elevations. A she is requesting IV morphine and Zofran at this time. States it usually takes 3-4 mg of morphine for his pain. Review of Systems General: Patient denies fevers, chills recent, and recent travel HEENT: Patient denies headache, sore throat, difficulty swallowing. Cardiovascular: Has the chest discomfort as mentioned above. Denies sensation of heart beating rapidly or irregularly. No syncope. Respiratory: He was diaphoretic. Denies inspirational chest discomfort. Denies coughing wheezing or hemoptysis. GI: He was nauseous. Patient denies vomiting, diarrhea, abdominal pain, bloody stools. Musculoskeletal: Patient denies joint pain or edema. Denies calf pain or edema. Neurovascular: Patient denies numbness, tingling, weakness in extremities. Denies headache. Endocrine: Denies polyuria and polydipsia. Hematologic: Denies easy bruising. Skin: Denies rash or itching. Past Family Social History Allergies: Coded Allergies: acetaminophen (Unverified Allergy, Severe, 05/11/17) codeine (Unverified Allergy, Severe, Anaphylaxis, 05/11/17) ANAPHYLACTIC SHOCK hydrocodone (Unverified Allergy, Severe, Hives, 05/11/17) hydromorphone (Unverified Allergy, Severe, MADE ME SICK, 05/11/17) ketorolac (Unverified Allergy, Severe, HIVES, SOB, 05/11/17) lorazepam (Unverified Allergy, Severe, 05/11/17) oxycodone (Unverified Allergy, Severe, 08/09/17) HIVES tramadol (Unverified Allergy, Severe, HIVES, SOB, 05/11/17) HIVES Past Medical History CAD with stents. Hypertension, hyperlipidemia, GERD, chronic pain. Past Surgical History Multiple cardiac catheterizations. C-spine surgery. Carotid endarterectomy. Reported Medications Reported Meds & Active Scripts Active Atorvastatin (Atorvastatin Calcium) 80 Mg Tab 80 Mg PO HS Plavix (Clopidogrel Bisulfate) 75 Mg Tab 75 Mg PO DAILY Reported Protonix (Pantoprazole Sodium) 20 Mg Tab 20 Mg PO DAILY Aspir-81 (Aspirin) 81 Mg Tab 81 Mg PO DAILY Uribel (Pdklbnephat-Lestv-Gwlqrziwe Bl) 118 Mg Cap 118 Mg PO Q6HR Glyburide 2.5 Mg Tab 2.5 Mg PO DAILYAC Metoprolol Tartrate 100 mg (Metoprolol Tartrate) 100 Mg Tab 100 Mg PO BID Vitamin B-12 Extended Rel (Miscellaneous Medication) 1,000 Mcg Subl 1,000 Mcg SL DAILY Norvasc (Amlodipine Besylate) 5 Mg Tab 5 Mg PO DAILY Active Ordered Medications Current Medications Medications (Trade) Dose Ordered Sig/Gaston Route Start Time Stop Time Status Last Admin (Zofran Inj) 4 mg Q6H PRN IV PUSH 08/25/17 17:15 UNV Family History Family history of CAD. Social History Quit smoking several years ago. Physical Exam Vital Signs Vital Signs Date Time Temp Pulse Resp B/P (MAP) Pulse Ox O2 Delivery O2 Flow Rate FiO2 08/25/17 17:00 97.9 58 18 145/65 (91) 96 Physical Exam GENERAL: This is a well-nourished, well-developed patient, in no apparent distress. Patient speaks in clear complete sentences. Patient is pleasant. HEENT: Head is atraumatic and normocephalic. Neck is supple without lymphadenopathy and trachea is midline. Left carotid bruit. CARDIOVASCULAR: Grade 2 systolic murmur left sternal border. Regular rate and rhythm without gallops, or rubs. RESPIRATORY: Clear to auscultation. Breath sounds equal bilaterally. No wheezes , rales, or rhonchi. Chest wall is nontender. No use of accessory muscles. GASTROINTESTINAL: Abdomen is nontender, nondistended. Abdomen soft. No obvious pulsatile mass or bruit. No CVA tenderness. Strong femoral pulses bilaterally. Normal bowel sounds in all quadrants. MUSCULOSKELETAL: Patient is moving upper and lower extremities freely. No calf tenderness or edema, no Homans sign. Strong pulses in upper and lower extremities. NEUROLOGICAL: Patient is alert and oriented. Cranial nerves 2-12 are grossly intact. No focal deficits and speech is clear. SKIN: No rash and turgor is normal. Laboratory Laboratory Tests Test 08/25/17 16:30 Caprini VTE Risk Assessment Caprini VTE Risk Assessment: Mod/High Risk (score >= 2) Caprini Risk Assessment Model Point Value = 1 Point Value = 2 Point Value = 3 Point Value = 5 Age 41-60 Minor surgery BMI > 25 kg/m2 Swollen legs Varicose veins or History of unexplained or recurrent spontaneous Oral contraceptives or hormone replacement Sepsis (< 1 month) Serious lung disease, including pneumonia (< 1 month) Abnormal pulmonary function Acute myocardial infarction Congestive heart failure (< 1 month) History of inflammatory bowel disease Medical patient at bed rest Age 61-74 Arthroscopic surgery Major open surgery (> 45 min) Laparoscopic surgery (> 45 min) Malignancy Confined to bed (> 72 hours) Immobilizing plaster cast Central venous access Age >= 75 History of VTE Family history of VTE Factor V Leiden Prothrombin [id number] Lupus anticoagulant Anticardiolipin antibodies Elevated serum homocysteine Heparin-induced thrombocytopenia Other congenital or acquired thrombophilia Stroke (< 1 month) Elective arthroplasty Hip, pelvis, or leg fracture Acute spinal cord injury (< 1 month) Prophylaxis Regimen Total Risk Factor Score Risk Level Prophylaxis Regimen 0-1 Low Early ambulation 2 Moderate Order ONE of the following: *Sequential Compression Device (SCD) *Heparin 5000 units SQ BID 3-4 Higher Order ONE of the following medications: *Heparin 5000 units SQ TID *Enoxaparin/Lovenox 40 mg SQ daily (WT < 150 kg, CrCl > 30 mL/min) *Enoxaparin/Lovenox 30 mg SQ daily (WT < 150 kg, CrCl > 10-29 mL/min) *Enoxaparin/Lovenox 30 mg SQ BID (WT < 150 kg, CrCl > 30 mL/min) AND/OR *Sequential Compression Device (SCD) 5 or more Highest Order ONE of the following medications: *Heparin 5000 units SQ TID (Preferred with Epidurals) *Enoxaparin/Lovenox 40 mg SQ daily (WT < 150 kg, CrCl > 30 mL/min) *Enoxaparin/Lovenox 30 mg SQ daily (WT < 150 kg, CrCl > 10-29 mL/min) *Enoxaparin/Lovenox 30 mg SQ BID (WT < 150 kg, CrCl > 30 mL/min) AND *Sequential Compression Device (SCD) Assessment and Plan Assessment and Plan * Chest pain: Patient does it history of CAD with stents. Patient was seen by Dr. Marko Zaidi of cardiology in his office and sent chest pain center. Dr. Zaidi has requested the patient then the night to rule out with serial cardiac enzymes and EKGs and has stress test if he rules out. * Hypertension: Continue current medication. * Hyperlipidemia: Continue her medication. * Chronic pain: Patient is requesting morphine. Patient is stable this time. He is agreeable to this plan. Andreas Hurley Aug 25, 2017 17:25
[2017-08-25] MEDS ORDERED: RESP: ALBUTEROL 2.5 MG/IPRATROPIUM 0.5 MG NEB (PRN) INH (17:30)
[2017-08-25] MEDS ORDERED: DEXTROSE 50% IN WATER 50 ML VIAL(D50) IV PUSH PRN (17:45)
[2017-08-25] MEDS ORDERED: GLUCAGON 1 MG/ML VIAL OTHER PRN (17:45)
[2017-08-25 17:48] LABS: CREATINE KINASE 103 U/L (39-308)
[2017-08-25 19:30] LABS: AUTOMATED NEUTROPHIL # 4.6 TH/MM3 (1.8-7.7); BASOPHIL # 0.1 TH/MM3 (0-0.2); BASOPHIL % 1.4 % (0.0-2.0); EOSINOPHIL # 0.4 TH/MM3 (0-0.4); EOSINOPHIL % 5.5 % (0.0-4.0); HEMATOCRIT 40.7 % (39.0-51.0); HEMO FLAGS DIFF FINAL; LYMPH % 21.1 % (9.0-44.0); LYMPHOCYTE # 1.6 TH/MM3 (1.0-4.8); MEAN CELL VOLUME 83.6 FL (80.0-100.0); MEAN CORPUSCULAR HEMOGLOBIN 27.8 PG (27.0-34.0); MEAN CORPUSCULAR HGB CONC 33.3 % (32.0-36.0); MONO % 11.9 % (0.0-8.0); NEUT % 60.1 % (16.0-70.0); PLATELET COUNT 261 TH/MM3 (150-450); RED BLOOD COUNT 4.87 MIL/MM3 (4.50-5.90); RED CELL DISTRIBUTION WIDTH 14.2 % (11.6-17.2); WHITE BLOOD COUNT 7.6 TH/MM3 (4.0-11.0)
[2017-08-25 19:59] VITALS: PULSE 59
[2017-08-25] MEDS: ASPIRIN 325 MG TAB PO SCH (19:59)
[2017-08-25] MEDS: ONDANSETRON HCL 4 MG/2 ML VIAL IV PUSH PRN (19:59)
[2017-08-25] MEDS: MORPHINE SULFATE 4 MG/ML INJ IV PRN (20:00)
[2017-08-25 20:10] LABS: BICARBONATE 25.2 MEQ/L (21.0-32.0); POTASSIUM 3.9 MEQ/L (3.5-5.1)
[2017-08-25 20:11] LABS: CREATINE KINASE 97 U/L (39-308)
[2017-08-25] MEDS ORDERED: ATORVASTATIN 80 MG TAB PO SCH (21:00)
[2017-08-25] MEDS ORDERED: TAMSULOSIN HCL 0.4 MG CAP PO SCH (21:00)
[2017-08-25] MEDS: INSULIN ASPART SUPPLEMENTAL SCALE SQ SCH (21:00)
[2017-08-25 22:18] VITALS: BP 153/70; PULSE 66; RESP 18; TEMP 98.1; O2SAT 97
[2017-08-25] MEDS: amLODIPine BESYLATE 5 MG TAB PO SCH (22:23)
[2017-08-25 23:19] LABS: CREATINE KINASE 99 U/L (39-308)
[2017-08-26] VITALS (7 sets, daily range): BP systolic 116–134; BP diastolic 59–68; PULSE 60–68; RESP 16–18; TEMP 97.6–98.1; O2SAT 94–99
[2017-08-26] MEDS: MORPHINE SULFATE 4 MG/ML INJ IV PRN ×3 (00:33→12:39)
[2017-08-26] MEDS: ONDANSETRON HCL 4 MG/2 ML VIAL IV PUSH PRN ×2 (02:00→12:38)
--- NOTE | 2017-08-26 07:53 | PD.CARD.PN ---
Subjective Subjective Remarks Resting. No chest pain. Having 3-4 beat runs of PVC's this morning Objective Medications Current Medications Medications (Trade) Dose Ordered Sig/Gaston Route Start Time Stop Time Status Last Admin (Zofran Inj) 4 mg Q6H PRN IV PUSH 08/25/17 17:15 08/26/17 02:00 (Aspirin) 325 mg DAILY PO 08/25/17 18:30 08/25/17 19:59 (Duoneb Neb) 1 ampule Q4HR NEB PRN INH 08/25/17 17:30 (Morphine Inj) 4 mg Q4H PRN IV 08/25/17 19:15 08/26/17 05:28 (Norvasc) 5 mg BID PO 08/25/17 21:00 08/25/17 22:23 (Lipitor) 80 mg HS PO 08/25/17 21:00 08/25/17 22:23 (Plavix) 75 mg DAILY PO 08/26/17 09:00 (Protonix) 20 mg DAILY PO 08/26/17 09:00 (KCl) 8 meq DAILY PO 08/26/17 09:00 (Flomax) 0.4 mg HS PO 08/25/17 21:00 08/25/17 22:23 (NovoLOG SUPPLEMENTAL SCALE) 1 ACHS SLIDING SCALE SQ 08/25/17 21:00 (D50w (Vial) Inj) 50 ml UNSCH PRN IV PUSH 08/25/17 17:45 (Glucagon Inj) 1 mg UNSCH PRN OTHER 08/25/17 17:45 Vital Signs / I&O Vital Signs Date Time Temp Pulse Resp B/P (MAP) Pulse Ox O2 Delivery O2 Flow Rate FiO2 08/26/17 05:44 18 08/26/17 03:56 98.0 62 16 116/68 (84) 95 08/26/17 03:40 61 08/26/17 01:45 21 08/26/17 00:25 98.1 63 18 134/60 (84) 96 08/26/17 00:00 62 08/25/17 22:18 98.1 66 18 153/70 (97) 97 08/25/17 19:59 59 08/25/17 17:00 97.9 58 18 145/65 (91) 96 I/O 11/29/17 11/29/08/25/17 08/26/17 08/26/17 08/26/17 07:00 15:00 23:00 07:00 15:00 23:00 Output Total 900 ml 450 ml Balance -900 ml -450 ml Output Urine Total 900 ml 450 ml Physical Exam Lungs clear RRR Laboratory Laboratory Tests Test 08/25/17 16:30 08/25/17 19:00 08/25/17 22:26 Total Creatine Kinase 103 U/L 97 U/L 99 U/L Troponin I LESS THAN 0.02 NG/ML LESS THAN 0.02 NG/ML LESS THAN 0.02 NG/ML White Blood Count 7.6 TH/MM3 Red Blood Count 4.87 MIL/MM3 Hemoglobin 13.6 GM/DL Hematocrit 40.7 % Mean Corpuscular Volume 83.6 FL Mean Corpuscular Hemoglobin 27.8 PG Mean Corpuscular Hemoglobin Concent 33.3 % Red Cell Distribution Width 14.2 % Platelet Count 261 TH/MM3 Mean Platelet Volume 7.6 FL Neutrophils (%) (Auto) 60.1 % Lymphocytes (%) (Auto) 21.1 % Monocytes (%) (Auto) 11.9 % Eosinophils (%) (Auto) 5.5 % Basophils (%) (Auto) 1.4 % Neutrophils # (Auto) 4.6 TH/MM3 Lymphocytes # (Auto) 1.6 TH/MM3 Monocytes # (Auto) 0.9 TH/MM3 Eosinophils # (Auto) 0.4 TH/MM3 Basophils # (Auto) 0.1 TH/MM3 CBC Comment DIFF FINAL Differential Comment D-Dimer Quantitative (PE/DVT) 0.56 MG/L FEU Blood Urea Nitrogen 20 MG/DL Creatinine 1.20 MG/DL Random Glucose 90 MG/DL Calcium Level 8.6 MG/DL Sodium Level 139 MEQ/L Potassium Level 3.9 MEQ/L Chloride Level 106 MEQ/L Carbon Dioxide Level 25.2 MEQ/L Anion Gap 8 MEQ/L Estimat Glomerular Filtration Rate 58 ML/MIN Assessment and Plan Assessment and Plan Lexiscan pending. D-dimer is elevated to 0.56. Will order CTA of lugs to R/O pulmonary emboli Marko Zaidi MD Aug 26, 2017 07:53
[2017-08-26] MEDS: INSULIN ASPART SUPPLEMENTAL SCALE SQ SCH ×2 (08:00→12:00)
[2017-08-26] MEDS ORDERED: PANTOPRAZOLE SOD 20 MG DELAYED RELEASE TAB PO SCH (09:00)
[2017-08-26] MEDS ORDERED: CLOPIDOGREL 75 MG TAB PO SCH (09:00)
[2017-08-26] MEDS ORDERED: POTASSIUM CHLORIDE 8 MEQ CONTROLLED RELEASE TAB PO SCH (09:00)
[2017-08-26] MEDS ORDERED: REGADENOSON INJ 0.4 MG/5 ML SYR ONE (10:08)
--- NOTE | 2017-08-26 12:19 | RADRPT ---
EXAM DATE/TIME: 08/26/2017 11:09 CORRECTION Corrected on: August 27, 2017; corrected stress symptoms [facility] COMPARISON: MYOCARDIAL PERF PHARM SPECT, GATED W/EF, August 06, 2017, 11:59. INDICATIONS : Midsternal chest pain. Angina. Myocardial infarction. DOSE: 25.9 mCi Tc99m Myoview at stress. 8.7 mCi Tc99m Myoview at rest. 0.4 mg Lexiscan STRESS SYMPTOMS: none EJECTION FRACTION: 59% MEDICAL HISTORY : Stroke. Cardiovascular disease SURGICAL HISTORY : CABG Cholecystectomy. Inguinal hernia repair. ENCOUNTER: Subsequent ACUITY: 2 days PAIN SCALE: 3/10 LOCATION: Midsternal chest TECHNIQUE: The patient underwent pharmacologic stress with infusion of prescribed dose. Continuous ECG tracing was monitored during stress. Gated SPECT imaging was performed after stress and conventional SPECT i maging was performed at rest. The examination was performed on a SPECT/CT scanner, both attenuation and non-corrected datasets were reviewed. FINDINGS: DISTRIBUTION: The maximum perfused segment at stress is in the septal wall. PERFUSION STUDY: Prominent perfusion abnormalities are identified in the anterolateral and inferior lockwood of the left ventricle. There is mild reperfusion at rest in the inferior wall and at the base of the heart on the anterior wall. GATED STUDY: There is paradoxical motion identified in the apex of the heart. There is left ventricular chamber e nlargement. Calculated ejection fraction is 59%. CONCLUSION: Abnormal myocardial perfusion scan with predominantly fixed myocardial perfusion defects in the anter olateral and inferior lockwood left ventricle. There is mild peripheral reperfusion. Paradoxical motion of the heart apex. Ejection fraction remains within normal limits. RISK CATEGORY: High (>3% Annual Mortality Rate) Rahat Méndez MD on August 26, 2017 at 12:05 Board Certified Radiologist. Board Certified Radiologist. This report was verified electronically.
[2017-08-26] MEDS: ASPIRIN 325 MG TAB PO SCH (12:37)
[2017-08-26] MEDS: amLODIPine BESYLATE 5 MG TAB PO SCH (12:38)
--- NOTE | 2017-08-26 12:41 | RADRPT ---
EXAM DATE/TIME: 08/26/2017 11:44 [place] COMPARISON: CT PULMONARY ANGIOGRAM, August 05, 2017, 15:59. INDICATIONS : Chest pain and shortness of breath. IV CONTRAST: 50 cc Omnipaque 350 (iohexol) IV RADIATION DOSE: 17.07 CTDIvol (mGy) MEDICAL HISTORY : Cardiovascular disease. Gastroesophageal reflux disease. Diabetes mellitus type 2. SURGICAL HISTORY : Coronary artery stent. ENCOUNTER: Initial ACUITY: 1 day PAIN SCALE: 3/10 LOCATION: chest TECHNIQUE: Volumetric scanning of the chest was performed using a pulmonary embolism protocol MIP images were re constructed. Using automated exposure control and adjustment of the mA and/or kV according to patien t size, radiation dose was kept as low as reasonably achievable to obtain optimal diagnostic quality images. DICOM format image data is available electronically for review and comparison. Follow-up recommendations for detected pulmonary nodules are based at a minimum on nodule size and pa tient risk factors according to Fleischner Society Guidelines. FINDINGS: PULMONARY ARTERIES: No filling defects are seen in the pulmonary arteries through the segmental level. LUNGS: There is no consolidation or pneumothorax . No concerning pulmonary nodule is visualized. PLEURAE: There is no pleural thickening or pleural effusion. MEDIASTINUM: 8 coronary arteries are heavily calcified. Postsurgical changes from prior CABG are identified. There is no evidence of mediastinal mass or lymphadenopathy. MUSCULOSKELETAL: Posterior fusion apparatus is identified extending from the lower thoracic spine into the lumbar spin e. MISCELLANEOUS: The visualized upper abdominal organs demonstrate no acute abnormality. CONCLUSION: 1. No evidence of acute pulmonary emboli. 2. No evidence of acute cardiopulmonary process. 3. Calcific coronary artery disease. 4. Status post CABG. Rahat Méndez MD on August 26, 2017 at 12:36 Board Certified Radiologist. This report was verified electronically.
--- NOTE | 2017-08-26 13:08 | HHI.DCPOC ---
Discharge Care Plan Diagnosis: (1) Chest pain (2) CAD (coronary artery disease) (3) H/O heart artery stent (4) Hx of CABG (5) HTN (hypertension) (6) Hyperlipidemia (7) DM2 (diabetes mellitus, type 2) (8) Frequent PVCs Goals to Promote Your Health HOLD GLYBURIDE FOR TWO DAYS. * To prevent worsening of your condition and complications * To maintain your health at the optimal level Directions to Meet Your Goals Take your medications as prescribed Follow your dietary instruction Follow activity as directed Keep your appointments as scheduled Take your immunizations and boosters as scheduled If your symptoms worsen call your PCP, if no PCP go to Urgent Care Center or Emergency Room Smoking is Dangerous to Your Health. Avoid second hand smoke Call the 24-hour hour crisis hotline for domestic abuse at Andreas Hurley Aug 26, 2017 13:08
--- NOTE | 2017-08-26 21:56 | EKG ---
Date Performed: 08/26/2017 Time Performed: 00:30:40 PTAGE: 77 years EKG: Sinus rhythm INDETERMINATE AXIS RIGHT BUNDLE BRANCH BLOCK ABNORMAL ECG Since PREVIOUS TRACING , no significant change noted DOCTOR: Tessa Todd Interpretating Date/Time 08/26/2017 21:54:56
--- NOTE | 2017-08-26 22:01 | EKG ---
Date Performed: 08/25/2017 Time Performed: 22:11:49 PTAGE: 77 years EKG: Sinus rhythm INTRAVENTRICULAR CONDUCTION DELAY ABNORMAL ECG Since PREVIOUS TRACING , no significant change noted PREVIOUS TRACIN08/25/2017 16.26 DOCTOR: Tessa Todd Interpretating Date/Time 08/26/2017 21:59:31
--- NOTE | 2017-08-26 22:02 | EKG ---
Date Performed: 08/25/2017 Time Performed: 16:26:37 PTAGE: 77 years EKG: Sinus rhythm MARKED RIGHT AXIS DEVIATION RIGHT BUNDLE BRANCH BLOCK AND POSSIBLE RIGHT VENTRICULAR HYPERTROPHY ABN ORMAL ECG Since PREVIOUS TRACING , no significant change noted PREVIOUS TRACIN08/10/2017 05.40 DOCTOR: Tessa Tdod Interpretating Date/Time 08/26/2017 22:02:19
--- NOTE | 2017-08-27 10:37 | TR ---
Date Performed: 08/26/2017 Time Performed: 10:23:35 DOCTOR: Saleem Rios DRUG LIST: PLAVIX NITRO METOPROLOL ASA CLINICAL HISTORY: HYPERTENSION DIABETES CHEST PAIN REASON FOR TEST: Angina REASON FOR ENDING: OBSERVATION: CONCLUSION: Lexiscan stress test was performed under standard four minute protocol. Radionuclid e was injected one minute prior to ending the test. No electrocardiographic abormalities were present to suggest ischemia. Nuclear imaging and interpretation are pending. COMMENTS:
== END 2017-08-26 15:45 | disposition home or self-care (01) ==
LOC: NEPGCP 15:46
PROVIDERS: ADMIT Internal Medicine Cardiovascular Disease; ATTEND Internal Medicine Cardiovascular Disease
DX: I25.10 Atherosclerotic heart disease of native coronary artery without angina pectoris (principal); I45.10 Unspecified right bundle-branch block; R61 Generalized hyperhidrosis; R11.0 Nausea; R06.02 Shortness of breath; K21.9 Gastro-esophageal reflux disease without esophagitis; I10 Essential (primary) hypertension; G89.29 Other chronic pain; E78.5 Hyperlipidemia, unspecified; E11.9 Type 2 diabetes mellitus without complications; Z79.01 Long term (current) use of anticoagulants; Z79.82 Long term (current) use of aspirin; Z95.5 Presence of coronary angioplasty implant and graft; Z95.1 Presence of aortocoronary bypass graft
CPT/HCPCS: 71010; 71275; 78452; 80048; 82550; 82948; 84484; 85025; 85379; 93005; 93017; 96374; 96375; 96376; A9502; G0378; J2270; J2405; J2785; Q9967

== ENCOUNTER 2018-03-25 19:31 | Inpatient (IN) ==
[2018-03-25] MEDS ORDERED: Iohexol 350 MG/ML 100 ML Vial (for Cath Lab) IV.SIG ONE (19:33)
[2018-03-27] MEDS: Sod Chloride 0.9% Inj 1,000 ML IV.CONT SCH ×4 (01:30→23:01)
[2018-03-27] MEDS: Morphine Inj 4 MG/ML Vial IV.PUSH PRN ×5 (04:30→20:24)
[2018-03-27] MEDS: Metoprolol Tartrate 100 MG Tablet PO SCH ×2 (07:59→20:25)
[2018-03-27] MEDS: Glimepiride 4 MG Tablet PO SCH (07:59)
[2018-03-27] MEDS: amLODIPine 5 MG Tablet PO SCH (07:59)
--- NOTE | 2018-03-27 08:27 | P.PNIM ---
Subjective Interval history: Pt denies any further chest pain He complains mostly of back pain. He does not feel that the pain control is sufficient. BP elevated this morning before meds administered Physical Exam Vital signs: Vital Signs 03/26/18 23:00 03/27/18 03:27 03/27/18 04:00 Temperature 98.2 F 98.2 F Pulse Rate 66 56 L 62 Respiratory Rate 16 18 Blood Pressure 160/70 H 178/81 H Pulse Oximetry 95 94 L 03/27/18 04:11 03/27/18 05:51 Temperature Pulse Rate 56 L Respiratory Rate 16 Blood Pressure Pulse Oximetry Intake & Output 03/26/18 03/27/18 03/27/18 18:59 06:59 18:59 Weight 88 kg Other: Weight On Admission 88 kg Narrative: General: NAD, AAOx3 Chest: CTA Cardiac: Regular Abd: +BS, soft ND/NT Ext: No edema Results - Labs CBC & Chem 7: 03/29/18 04:50 03/29/18 04:50 Laboratory Results - last 24 hr 03/25/18 03/25/18 03/25/18 15:38 15:38 15:38 WBC 8.5 RBC 5.46 Hgb 14.7 Hct 45.5 MCV 83.3 MCH 27.0 MCHC 32.4 RDW 14.5 Plt Count 203 MPV 7.9 Neut % (Auto) 63.7 Lymph % (Auto) 17.7 Antelope % (Auto) 13.1 H Eos % (Auto) 4.3 H Baso % (Auto) 1.2 Neut # (Auto) 5.4 Lymph # (Auto) 1.5 Antelope # (Auto) 1.1 H Eos # (Auto) 0.4 Baso # (Auto) 0.1 CBC Comment AUTO DIFF Differential Comment AUTO DIFF CONFIRMED Platelet Estimate NORMAL Plt Morphology Comment NORMAL PT INR APTT Sodium 136 Potassium 4.6 Chloride 107 Carbon Dioxide 20.2 L Anion Gap 9 BUN 21 H Creatinine 1.52 H Estimated GFR 44 L POC Glucose Random Glucose 151 H Calcium 8.7 Magnesium 2.0 Total Bilirubin 0.4 AST 22 ALT 25 Alkaline Phosphatase 71 Total Creatine Kinase 189 CK-MB (CK-2) 3.1 Troponin I LESS THAN 0.02 L B-Natriuretic Peptide 209 H Total Protein 7.4 Albumin 3.6 Free T4 TSH 3rd Generation Urine Color Urine Turbidity Urine pH Ur Specific [place] Urine Protein Urine Glucose (UA) Urine Ketones Urine Occult Blood Urine Nitrite Urine Bilirubin Urine Urobilinogen Ur Leukocyte Esterase Urine WBC Micro UA Comment 03/25/18 03/25/18 03/25/18 16:41 17:45 19:24 WBC RBC Hgb Hct MCV MCH MCHC RDW Plt Count MPV Neut % (Auto) Lymph % (Auto) Antelope % (Auto) Eos % (Auto) Baso % (Auto) Neut # (Auto) Lymph # (Auto) Antelope # (Auto) Eos # (Auto) Baso # (Auto) CBC Comment Differential Comment Platelet Estimate Plt Morphology Comment PT 9.6 L INR 0.9 APTT Sodium Potassium Chloride Carbon Dioxide Anion Gap BUN Creatinine Estimated GFR POC Glucose Random Glucose Calcium Magnesium Total Bilirubin AST ALT Alkaline Phosphatase Total Creatine Kinase 172 CK-MB (CK-2) 2.7 Troponin I LESS THAN 0.02 L B-Natriuretic Peptide Total Protein Albumin Free T4 TSH 3rd Generation Urine Color Straw Urine Turbidity CLEAR Urine pH 5.0 Ur Specific [place] 1.005 Urine Protein NEG Urine Glucose (UA) NEG Urine Ketones NEG Urine Occult Blood NEG Urine Nitrite NEG Urine Bilirubin NEG Urine Urobilinogen LESS THAN 2 Ur Leukocyte Esterase NEG Urine WBC 1 Micro UA Comment CULT NOT INDICATED 03/26/18 03/26/18 03/26/18 06:35 06:35 06:35 WBC RBC Hgb Hct MCV MCH MCHC RDW Plt Count MPV Neut % (Auto) Lymph % (Auto) Antelope % (Auto) Eos % (Auto) Baso % (Auto) Neut # (Auto) Lymph # (Auto) Antelope # (Auto) Eos # (Auto) Baso # (Auto) CBC Comment Differential Comment Platelet Estimate Plt Morphology Comment PT INR APTT 24.8 Sodium 139 Potassium 4.2 Chloride 105 Carbon Dioxide 25.5 Anion Gap 9 BUN 22 H Creatinine 1.40 H Estimated GFR 49 L POC Glucose Random Glucose 92 Calcium 8.3 L Magnesium Total Bilirubin AST ALT Alkaline Phosphatase Total Creatine Kinase 226 CK-MB (CK-2) 2.8 Troponin I LESS THAN 0.02 L B-Natriuretic Peptide Total Protein Albumin Free T4 1.26 TSH 3rd Generation 3.840 H Urine Color Urine Turbidity Urine pH Ur Specific [place] Urine Protein Urine Glucose (UA) Urine Ketones Urine Occult Blood Urine Nitrite Urine Bilirubin Urine Urobilinogen Ur Leukocyte Esterase Urine WBC Micro UA Comment 03/27/18 07:56 WBC RBC Hgb Hct MCV MCH MCHC RDW Plt Count MPV Neut % (Auto) Lymph % (Auto) Antelope % (Auto) Eos % (Auto) Baso % (Auto) Neut # (Auto) Lymph # (Auto) Antelope # (Auto) Eos # (Auto) Baso # (Auto) CBC Comment Differential Comment Platelet Estimate Plt Morphology Comment PT INR APTT Sodium Potassium Chloride Carbon Dioxide Anion Gap BUN Creatinine Estimated GFR POC Glucose 89 Random Glucose Calcium Magnesium Total Bilirubin AST ALT Alkaline Phosphatase Total Creatine Kinase CK-MB (CK-2) Troponin I B-Natriuretic Peptide Total Protein Albumin Free T4 TSH 3rd Generation Urine Color Urine Turbidity Urine pH Ur Specific [place] Urine Protein Urine Glucose (UA) Urine Ketones Urine Occult Blood Urine Nitrite Urine Bilirubin Urine Urobilinogen Ur Leukocyte Esterase Urine WBC Micro UA Comment - Imaging Lexiscan (03/26/18): FINDINGS: There is redistribution in the mid anterior lateral wall beginning in mid ventricular wall to the base. There is mild hypokinesis of the segment in spite of the ejection fraction is 67 %. 2D Echo(03/26/18): CONCLUSIONS The left ventricular systolic function is normal with an estimated ejection fraction in the range of 60-65%. Wall thickness is measured at the upper limits of normal. Trace mitral valve regurgitation. There is trace tricuspid valve regurgitation. Trivial pulmonary valve regurgitation. Assessment and Plan - Assessment (1) Chest pain Code(s): R07.9 - Chest pain, unspecified Status: Acute Onset Date: ~ Plan: - Pt is a 77 y/o male with CAD with angina, hx of syncope s/p loop recorder implantation, diabetes mellitus, type 2, HTN, Depression/Anxiety, and diabetic gastroparesis. - His most recent LHC was 08/09/[address] Zaidi and he had noted LAD with 90% stenosis and left circumflex with 75-80% stenosis in it proximal portion s/p stenting. - He was also last admitted to the chest pain center in 07/2017 and had a Lexiscan stress test performed on 08/26/18 which was negative. - He presented to the ED at [facility] on 03/25/18 with complaints of left sided chest pain which he describes as heaviness that radiates to the left arm and into his jaw that began yesterday - Pt took his baby ASA yesterday and was given 243mg of ASA in the ED. He refused further nitroglycerin due to the headache. - Outpt EKG at the urgent care was read as electronic atrial pacemaker, marked right axis deviation (QRS > 100), RBBB and possible RVH - CE are negative - Appreciate consult from Cardiology - Lexiscan (03/26/18): - There is redistribution in the mid anterior lateral wall beginning in mid ventricular wall to the base. - There is mild hypokinesis of the segment in spite of the ejection fraction is 67%. - 2D Echo(03/26/18): - Estimated ejection fraction in the range of 60-65%. - Wall thickness is measured at the upper limits of normal. - Trace mitral valve regurgitation. - There is trace tricuspid valve regurgitation. - Trivial pulmonary valve regurgitation. - Cont home doses of cardiac meds - Could consider adding Imdur - Discussed the case with Dr. Geller this morning and she wants the pts started on a Heparin gtt and made NPO after [facility] to review on Wednesday for possible C - Telemetry - DVT prophylaxis with SCDs (2) CAD (coronary artery disease) Code(s): I25.10 - Atherosclerotic heart disease of [place] coronary artery without angina pectoris Status: Chronic Plan: - Pt with hx of CAD and angina which is medically managed - He has had multiple cardiac caths with the most recent C (08/09/2017) with Dr. Zaidi --> - LAD with 90% stenosis and left circumflex with 75-80% stenosis in it proximal portion s/p stenting - Home meds resumed (3) HTN (hypertension) Code(s): I10 - Essential (primary) hypertension Status: Chronic Plan: - Home meds continued (4) Diabetes mellitus Code(s): E11.9 - Type 2 diabetes mellitus without complications Status: Chronic Plan: - NovoLog SSI - Accu checks (5) Back pain Code(s): M54.9 - Dorsalgia, unspecified Status: Acute Plan: - Pt reports that he has been having worsening right sided back pain for a few weeks - The pain causes his legs to buckle occasionally. - Previous right sided hip and pelvis Xray in the ED was negative - PT evaluation - - Attending Attestation Patient examined. Assessment and plan formulated with Ashley Alonzo PA-C. I agree with the above. (1) Chest pain Qualifiers: Chest pain type: unspecified Qualified Code(s): R07.9 - Chest pain, unspecified (3) HTN (hypertension) Qualifiers: Hypertension type: essential hypertension Qualified Code(s): I10 - Essential (primary) hypertension (4) Diabetes mellitus Qualifiers: Diabetes mellitus type: type 2 (5) Back pain Qualifiers: Back pain location: low back pain Chronicity: acute Back pain laterality: right Sciatica presence: without sciatica Qualified Code(s): M54.5 - Low back pain
[2018-03-27] MEDS: Insulin NovoLOG Aspart Correctional Sugar Inj SQ SCH ×4 (10:27→20:28)
[2018-03-27] MEDS ORDERED: Heparin Drip 25,000 UNIT/250 ML BAG IV.CONT PRN (11:36)
[2018-03-28] MEDS: Morphine Inj 4 MG/ML Vial IV.PUSH PRN ×5 (04:15→20:35)
--- NOTE | 2018-03-28 07:48 | P.PNCA ---
Subjective Interval history: Had some short episodes of chest pain overnight, but reportedly mild. Complains of back pain that makes it difficult to walk. Physical Exam Vital signs: Vital Signs 03/27/18 08:38 03/27/18 12:00 03/27/18 12:22 Temperature 98.2 F Pulse Rate 59 L Respiratory Rate 16 12 18 Blood Pressure 162/73 H Pulse Oximetry 98 03/27/18 16:00 03/27/18 19:11 03/27/18 20:00 Temperature 98.4 F 98.0 F Pulse Rate 65 69 Respiratory Rate 18 18 Blood Pressure 163/72 H 169/74 H 164/74 H Pulse Oximetry 96 98 03/28/18 00:28 03/28/18 01:01 03/28/18 04:00 Temperature 98.1 F Pulse Rate 65 62 58 L Respiratory Rate 18 Blood Pressure 178/89 H Pulse Oximetry 93 L 03/28/18 06:00 Temperature 98.2 F Pulse Rate 62 Respiratory Rate 18 Blood Pressure 179/79 H Pulse Oximetry 95 Intake & Output 03/27/18 03/28/18 03/28/18 18:59 06:59 18:59 Intake Total 480 / 480 1120 / 1120 Output Total 381 / 381 1000 / 1000 Balance 99 / 99 120 / 120 Weight 201 lb 11.567 oz Intake: IV 1000 / 1000 NS Inj 1,000 ML @ 100 mls/hr IV 1000 / 1000 .CONT .Q10H [facility] Rx#:[id number] Oral 480 / 480 120 / 120 Output: Urine 380 / 380 1000 / 1000 Urine/Stool Mix Other: # Voids 10 # Bowel Movements 0 Narrative: GENERAL: Well-developed well-nourished. In no acute distress. NECK: No carotid bruits. No JVD. CARDIOVASCULAR: Regular rate and rhythm. No murmur appreciated. RESPIRATORY: No accessory muscle use. Clear to auscultation. Breath sounds equal bilaterally. MUSCULOSKELETAL: No clubbing or cyanosis. No edema. NEUROLOGICAL: Awake and alert. Normal speech. Assessment and Plan - Plan 77-year-old male with past medical history of CAD with CABG in 6 stents in the past, HTN, HLD, DM. The patient was having back pain 1 week presented to urgent care. While walking to urgent care he had an episode of severe chest discomfort and was sent to the ED. Lexiscan was done which showed moderate size area redistribution anterior lateral wall CAD with chest pain: Patient has a complex history of both cardiac and noncardiac chest pain in the past. Stress test does seem to have new ischemic changes. On heparin GTT. N.p.o. for cardiac catheterization. Discussed Condition With: Patient, Dr. Pollock Progress Note: Quality - VTE Deep Vein Thrombosis/Pulmonary Embolism Present on Admission: No
[2018-03-28] MEDS: amLODIPine 5 MG Tablet PO SCH (08:54)
[2018-03-28] MEDS: Glimepiride 4 MG Tablet PO SCH (08:54)
[2018-03-28] MEDS: Metoprolol Tartrate 100 MG Tablet PO SCH ×2 (08:54→20:35)
[2018-03-28] MEDS: Insulin NovoLOG Aspart Correctional Sugar Inj SQ SCH ×4 (09:03→21:00)
[2018-03-28] MEDS ORDERED: Heparin/NS PF Inj 1,000 ML ONE (10:59)
[2018-03-28] MEDS ORDERED: Heparin 10,000 UNITS/10 ML Vial (for IV use) ONE (10:59)
[2018-03-28] MEDS ORDERED: fentaNYL Citrate Inj 100 MCG/2 ML Ampul ONE (11:01)
[2018-03-28] MEDS ORDERED: Misc Info for Pharmacy OTHER STA (11:59)
[2018-03-28] MEDS ORDERED: Lidocaine 1% Inj 50 ML Vial INFILTRATN PRN (11:59)
--- NOTE | 2018-03-28 12:00 | CATHPROC ---
[facility] HIS Report Study Information Study Number Admission Scheduled Start Study Start [id number] Mar 25 2018 7:32PM 03/28/2018 Mar 28 2018 10:16AM [facility] Cardiac Catheterization Admit Source Facility Department Emergency department [facility] - Product Promoter Sales Person Physician and Clinical Staff Initial Juan Arora Rolled Ham Lacer Eugene Grey,RN Rolled Ham Lacer Ashley Alvarenga,RN Recorder Frederic Cabrera,RT(R) Scrub Felipe Ferreira,RT(R) Procedures Performed Procedure Location (Site) Vessel Name Coronary Angiograms LCA Left Coronary Coronary Angiograms RCA Right Coronary Coronary Angiograms SVG-LAD Left Coronary Coronary Angiograms SVG-LCX CIRC Coronary Angiograms SVG-PDA Right Coronary Drug Eluting Inflatio CIRC Prox CIRC L Heart Cath PTCA CIRC Prox CIRC Wire insertion Fem Art (right) Femoral Art Equipment Time Pelletizer Tender Description Size Mfg Part Number Used/Scraped COPILOT VALVE, BLEEDBACK [id number] 11:34 [employer] Used CONTROL *[id number] TRANSDUCER, TRUWAVE [id number] 10:21 [employer] CHEW * Used W/STOCKCOCK *[id number] [id number] *[id number] 534-521T *[id number] [id number] *[id number] *[id number] 10:21 [employer] BLANKET,WARM AIR CCL * Used *[id number] 10:21 [employer] PACK, CCL CUSTOM * Used *[id number] 10:21 TSO3 PACER PEN, SKIN DUAL W/ RULER * Used *[id number] 11:37 [employer] BALLOON, 2.0 X 12MM EUPHORA 12MM Used *[id number] BALLOON, 3.25 X 12MM NC [id number] 11:45 [employer] 12MM Used EUPHORA *[id number] 11:41 [employer] STENT, 3.0 26MM EMILY 3.0 26MM Used *[id number] 11:39 [employer] MEDICAL 30 SHYAM INDEFLATOR Used *[id number] 11:34 [employer] MEDICAL SHEATH, FR6.5 PRELUDE 11CM FR 6.5 038ACT Used *[id number] 10:21 [employer] WIRE, 3MMJ .035 180CM 180CM Used *[id number] 10:21 NAMIC MANIFOLD, 4 PORT * Used *[id number] 10:21 [employer] OMNIPAQUE, 350 MG, 150ML 150ML [id number] Used [id number] 10:21 [employer] MEDICAL SHEATH, FR5 TERUMO (10CM) FR 5 Used *[id number] WIRE, RUNTHROUGH NS FLOPPY [id number] 11:34 [employer] MEDICAL 180CM Used .014 180CM *[id number] Equipment Model, Serial, Lot Number and Expiration Data Description Model Number Serial Number Lot Number Expiration Date STENT, 3.0 26MM EMILY [id number] 11-05-2019 History: Current Medications Medication Dosage/Unit Route Frequency Last Date/Time Taken Beta Alec PLAVIX NORVASC History: Allergies Allergy Reaction Hydromorphone ketorolac lorazepam Tramadol Acetaminophen Codeine Hydrocodone History: Risk Factors Family History of Hypertension Dyslipidemia Previous OH Previous Heart Failure Premature CAD Yes Yes Yes Yes No Prior Valve Prior PCI Prior PCIDate Prior CABG Prior CABGDate Surgery No Yes 08/09/2017 Yes 09/27/2010 Cerebrovascular 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 Diabetes Diabetes Therapy Disease Disease Disease No No Yes No Yes Insulin History: Risk Factors Selection Items Hyperlipidemia Previous Cardiovascular Treatment Prev Perc Coronary Intervention History: Symptoms/Diagnosis Selection Items Chest pain History: Stress Tests Stress or Imaging Studies Performed Yes Standard Exercise Stress Test No Stress Echo No Stress Test SPECT Stress Test SPECT Result Stress Test SPECT Ischemia Risk/Extent Yes Positive Intermediate Stress Test CMR No Cardiac CTA Coronary Calcium Score No No History: Arrhythmias Selection Items PVC's History: Other Disease Selection Items CAD HTN History: Other Current Smoker Method Quit Packs a Day Years Used Pack Years No Cigarettes 40 Years Ago 1 10 10 Labs Hgb (g/dl) Hct (%) RBC (MIL/MM3) WBC (l/cumm) Platelets (thousands) 11.60-17.00 35.00-51.00 4.00-5.90 4.00-11.00 150.00-450.00 14.7 45.5 5.5 8.5 203 BUN (mg/dl) Creatinine (mg/dl) BUN:Creatinine (1:x) 7.00-18.00 0.50-1.30 10.00-20.00 22 1.4 15.7 Na (meq/l) K (meq/l) Cl (meq/l) CO2 (mmol/L) Ca (mg/dl) 136.00-145.00 3.50-5.10 98.00-107.00 21.00-32.00 8.50-10.10 139 4.2 105 25.5 8.3 PT (sec) PTT (sec) INR (PTT:PT) 9.80-11.60 24.30-30.10 0.90-1.10 9.6 24.8 0.9 Troponin I (ng/ml) CPK (u/l) CPK-MB (ng/ML) 0.02-0.05 26.00-308.00 0.50-3.60 0.02 226 2.8 Medication Medication Total Dose (Bolus/Oral) Medication Total Dosage/Unit 1% XYLOCAINE 20 mL FENTANYL 50 mcg HEPARIN 5000 units VERSED 2 mg Medications (Bolus/Oral) Medication Time Given Dosage/Unit Administered By Reason VERSED 03/28/2018 11:15:52 AM 2 mg Ashley Alvarenga 2 mg VERSED given in lab by Ashley Alvarenga RN in Left Forearm via Peripheral IV. Ordered by Juan Pollock. FENTANYL 03/28/2018 11:16:30 AM 50 mcg Ashley Alvarenga 50 mcg FENTANYL given in lab by Ashley Alvarenga RN in Left Forearm via Peripheral IV. Ordered by Juan Lock. 1% XYLOCAINE 03/28/2018 11:19:38 AM 20 mL Juan Pollock 20 mL 1% XYLOCAINE given in lab by Juan Pollock in Right Groin via Subcutaneous. Ordered by Juan Pollock. HEPARIN 03/28/2018 11:35:35 AM 5000 units Ashley Alvarenga 5000 units HEPARIN given in lab by Ashley Alvarenga RN via Peripheral IV. Ordered by Juan Pollock. Medication (Drip) Medication Time Given Dosage/Unit Concentration/Unit Diluent (ml) Solution IV Solutions 03/28/2018 10:58:33 AM 0 mL (IV) 1000 NaCl .9 IV Solutions given in lab by Ashley Alvarenga RN in Left Forearm via Peripheral IV. Pump/Drip Flow = 20 ml/hr using NaCl .9. Ordered by Juan Pollock. Initial Case Assessment Cardiovascular HR NIBP Chest Pain 74 174/101 1 Edema Present Skin color Skin None Normal Warm Dry Circulatory - Right Pulses Dorsalis Pedis Femoral 3 3 Scale (0,1,2,3,4,d) Circulatory - Left Pulses Dorsalis Pedis Femoral 3 Scale (0,1,2,3,4,d) Circulatory - Lower Extremities Color Lower Right Color Lower Left Normal Normal Neurological State Oriented to time-place- Alert Moves all extremities person Respiration - General Respiration Rate SpO2 (%) (B/min) 18 94 Final Case Assessment Cardiovascular HR NIBP Chest Pain 74 174/101 1 Edema Present Skin color Skin None Normal Warm Dry Circulatory - Right Pulses Dorsalis Pedis Femoral 3 3 Scale (0,1,2,3,4,d) Circulatory - Left Pulses Dorsalis Pedis Femoral 3 Scale (0,1,2,3,4,d) Circulatory - Lower Extremities Color Lower Right Color Lower Left Normal Normal Neurological State Oriented to time-place- Alert Moves all extremities person Respiration - General Respiration Rate SpO2 (%) (B/min) 18 94 Chronological Log Time Study Chronological Log 10:49:10 Patient arrived via Bed. 10:50:20 Patient Name, D.O.B, / Armband Verified By R.N. 10:50:20 Consent signed by the physician and the patient and verified by the Product Promoter Sales Person staff. 10:50:21 Pre-op and post- op instructions given; patient acknowledges understanding of instructions. Vitals capture started with the following parameters, Patient=Adult, Interval=5 min, Initial Pr wkmnvg=937 mmHg, 10:54:07 Deflation Rate=5 mmHg, Cuff placed on Right Ankle Assessment: Initial Case, HR=74 BPM, HZPW=579/101 mmhg, Chest Pain=1, Edema=None, Color=Normal, Skin = Warm, Dry Right Pulses: Jerome Ped=3, Femoral=3 Left Pulses: Post Tib=1, Femoral=3 10:54:10 Lower Right Extremities: Color=Normal Lower Left Extremities: Color=Normal Neurological: State=Alert, Ox3, HANKINS Respiration: Resp=18 B/min, SpO2=94 % 10:54:49 HR=76 bpm, QJBD=223/104 mmhg, SpO2=94.0 %, Pain=1, Mari=2 10:57:35 Reference ECG taken 10:57:41 Verbal Stimulation=2 Physical Stimulation=2 Airway=2 Respiration=2 TOTAL=8. (0=absent, 1=li mited, 2=present) 10:57:57 Presedation assessment performed by Product Promoter Sales Person RN. 10:58:01 Patient has been NPO for More than 6Hrs. 10:58:03 Skin Breakdown/none per pt 10:58:14 Patient Warmer Placed on the Table. 10:58:17 John Prominences Protected 10:58:18 A # 20 IV was noted in the Forearm (left). Grade = 0 IV Solutions given in lab by Ashley Alvarenga, VITALY in Left Forearm via Peripheral IV. Pump/Drip F low = 20 ml/hr using 10:58:33 NaCl .9. Ordered by Juan Pollock. 10:58:58 History and physical on the chart or being dictated. 10:59:52 HR=63 bpm, GUHF=336/95 mmhg, SpO2=97.0 %, Resp=24 B/min 11:02:47 Bilateral groins prepped with 2% chlorhexidine, and draped after a 3 min. waiting time. 11:04:57 HR=59 bpm, BDBT=151/83 mmhg, SpO2=96.0 %, Resp=20 B/min 11:05:05 MD paged 11:06:30 Pressure channel 1 zeroed. 11:10:41 HR=77 bpm, BLUG=224/65 mmhg, SpO2=97.0 %, Resp=17 B/min 11:13:24 MD arrived. 11:14:53 HR=69 bpm, CKTI=755/93 mmhg, SpO2=94.0 %, Resp=18 B/min 11:15:52 2 mg VERSED given in lab by Aslhey Alvarenga, VITALY in Left Forearm via Peripheral IV. Ordered by Juan Pollock. 11:16:30 50 mcg FENTANYL given in lab by Ashley Alvarenga RN in Left Forearm via Peripheral IV. Orde red by Juan Pollock. Time Out. Correct patient, correct procedure, correct physician, labs, allergies, and equipment verified with crime lab technician 11:19:07 team present. Fire risk assesment completed (see hard stop sheet for coding). Time Out Conc urred by MD and individual staff in procedure. 11:19:19 Case Start 11:19:38 20 mL 1% XYLOCAINE given in lab by Juan Pollock in Right Groin via Subcutaneous. Ordered by Juan Pollock. 11:19:52 HR=61 bpm, IJMR=091/78 mmhg, SpO2=92.0 %, Resp=16 B/min 11:20:06 Access site was Right Femoral Artery. 11:20:37 A SHEATH, FR5 TERUMO (10CM) FR 5 was advanced into the Fem Art (right) using the Valentina te chnique. A JL 4.0 INFINITI CATHETER FR 5 was advanced over a wire. OMNIPAQUE, 350 MG, 150ML 150ML was us ed for 11:21:51 injections. 11:22:56 The LCA was injected and visualized at various angles. OMNIPAQUE, 350 MG, 150ML 150ML used . Recorded Pressure: Ao, HR=67, Condition=Condition 1 11:23:11 (Aorta) Ao 147/59/95 After removing the current catheter a JR 4.0 INFINITI CATHETER FR 5 was advanced over a WIRE, 3 MMJ .035 180CM 11:23:49 180CM. 11:24:44 The RCA was injected and visualized at various angles. OMNIPAQUE, 350 MG, 150ML 150ML used . 11:24:53 HR=70 bpm, HPND=566/78 mmhg, SpO2=93.0 %, Resp=15 B/min 11:25:10 eliezer goodson 11:26:00 The SVG-LAD was injected and visualized at various angles. OMNIPAQUE, 350 MG, 150ML 150ML u sed. 11:27:01 The SVG-LCX was injected and visualized at various angles. OMNIPAQUE, 350 MG, 150ML 150ML u sed. After removing the current catheter a MPA-2 INFINITI CATHETER FR 5 was advanced over a WIRE, 3M MJ .035 180CM 11:28:36 180CM. 11:30:17 HR=60 bpm, LTKW=787/69 mmhg, SpO2=96.0 %, Resp=18 B/min, Pain=0, Florin=10, Mari=2 11:30:33 The SVG-PDA was injected and visualized at various angles. OMNIPAQUE, 350 MG, 150ML 150ML u sed. 11:32:00 Catheter was removed A SHEATH, FR6.5 PRELUDE 11CM FR 6.5 was exchanged in the Fem Art (right). This was necessary in order to 11:33:37 accomodate a larger catheter. A XB 3.5 GUIDE CATHETER FR 6 was advanced over a wire. OMNIPAQUE, 350 MG, 150ML 150ML was used for 11:34:53 injections. 11:35:24 HR=64 bpm, JRUI=121/71 mmhg, SpO2=98.0 %, Resp=14 B/min 11:35:35 5000 units HEPARIN given in lab by Ashley Alvarenga RN via Peripheral IV. Ordered by Juan Pollock. 11:36:29 A WIRE, RUNTHROUGH NS FLOPPY .014 180CM 180CM was inserted via Fem Art (right). 11:36:35 Interventional wire has crossed the lesion A BALLOON, 2.0 X 12MM EUPHORA 12MM was inserted over WIRE, RUNTHROUGH NS FLOPPY .014 180CM 180C M via 11:37:46 the Fem Art (right). A BALLOON, 2.0 X 12MM EUPHORA 12MM over a WIRE, RUNTHROUGH NS FLOPPY .014 180CM 180CM in the CI RC 11:38:36 Prox was inflated using a 30 SHYAM INDEFLATOR at 16 shyam for 30 sec. A BALLOON, 2.0 X 12MM EUPHORA 12MM over a WIRE, RUNTHROUGH NS FLOPPY .014 180CM 180CM in the CI RC 11:39:18 Prox was inflated using a 30 SHYAM INDEFLATOR at 16 shyam for 30 sec. 11:39:54 HR=73 bpm, EJBS=759/64 mmhg, SpO2=97.0 %, Resp=17 B/min A BALLOON, 2.0 X 12MM EUPHORA 12MM over a WIRE, RUNTHROUGH NS FLOPPY .014 180CM 180CM in the CI RC 11:40:01 Prox was inflated using a 30 SHYAM INDEFLATOR at 16 shyam for 10 sec. 11:40:26 Balloon Removed. 11:41:24 Activated Clotting Time Drawn A STENT, 3.0 26MM EMILY 3.0 26MM was advanced through a XB 3.5 GUIDE CATHETER FR 6 over a WIRE, 11:41:27 RUNTHROUGH NS FLOPPY .014 180CM 180CM. A STENT, 3.0 26MM EMILY 3.0 26MM was deployed using a 30 SHYAM INDEFLATOR at 18 atmospheres for 20 seconds in 11:42:42 the CIRC Prox. 11:45:24 HR=62 bpm, JETT=125/74 mmhg, SpO2=97.0 %, Resp=16 B/min 11:45:32 Delivery device removed A BALLOON, 3.25 X 12MM NC EUPHORA 12MM was inserted over WIRE, RUNTHROUGH NS FLOPPY .014 180CM 11:45:37 180CM via the Fem Art (right). A BALLOON, 3.25 X 12MM NC EUPHORA 12MM over a WIRE, RUNTHROUGH NS FLOPPY .014 180CM 180CM in th e 11:45:49 CIRC Prox was inflated using a 30 SHYAM INDEFLATOR at 18 shyam for 15 sec. 11:46:20 ACT (Normal Range 90-180) = 276 A BALLOON, 3.25 X 12MM NC EUPHORA 12MM over a WIRE, RUNTHROUGH NS FLOPPY .014 180CM 180CM in th e 11:46:33 CIRC Prox was inflated using a 30 SHYAM INDEFLATOR at 20 shyam for 20 sec. A BALLOON, 3.25 X 12MM NC EUPHORA 12MM over a WIRE, RUNTHROUGH NS FLOPPY .014 180CM 180CM in th e 11:47:07 CIRC Prox was inflated using a 30 SHYAM INDEFLATOR at 20 shyam for 20 sec. 11:48:13 Balloon Removed. 11:48:44 Catheter was removed 11:49:16 Case End (Physician broke scrub) Assessment: Final Case, HR=74 BPM, XYWO=602/101 mmhg, Chest Pain=1, Edema=None, Color=Normal, S kin = Warm, Dry Right Pulses: Jerome Ped=3, Femoral=3 Left Pulses: Post Tib=1, Femoral=3 11:49:34 Lower Right Extremities: Color=Normal Lower Left Extremities: Color=Normal Neurological: State=Alert, Ox3, HANKINS Respiration: Resp=18 B/min, SpO2=94 % 11:49:44 Catheter(s) removed without difficulty 11:49:49 In the Fem Art (right) the sheath was sutured in place by Juan Pollock. 11:49:52 HR=62 bpm, IDXC=276/75 mmhg, SpO2=99.0 %, Resp=24 B/min 11:49:53 Sterile dressing applied to site 11:49:53 No case complications noted. 11:49:55 Cine recording checked. 11:50:07 Bedside Report will be given. 11:50:11 Implantable Device card placed in patient's chart. 11:50:13 A Left Heart Cath was performed. 11:54:53 HR=68 bpm, DVSZ=176/81 mmhg, Resp=15 B/min 11:54:54 Patient moved to stretcher 11:59:22 Vitals capture stopped. End Study - Contrast Media Used In Study Contrast Total Opened (mL) Total Used (mL) Total Wasted (mL) Omnipaque 70 70 0 End Study - Maximum Contrast Load Max Contrast Load (mL) 326.8 End Study - Radiation Exposure Fluoro Time (minutes) 4.4 End Study - Patient Disposition Complications Transferred To Interventional Outcome No Critical Care Bed successful
--- NOTE | 2018-03-28 12:23 | MA ---
cc: Juan Pollock MD DATE: 03/28/2018 DATE OF PROCEDURE: 03/28/2018 INDICATIONS: Unstable angina. PROCEDURES PERFORMED: 1. Fluoroscopy with interpretation. 2. Coronary angiography. 3. Coronary artery bypass graft angiography. 4. Percutaneous coronary intervention with drug-eluting stent to the proximal left circumflex coronary artery. METHOD: Risks, benefits, and alternatives discussed with the patient. The patient understood and consented to the procedure. The patient was brought into the cardiac catheterization lab, placed on the catheterization table. The right groin was prepped and draped in the usual sterile fashion. The right groin was anesthetized with 2% lidocaine. The right common femoral artery was cannulated. A 6-Luxembourgish, 11-cm sheath was placed without difficulty. CORONARY ANGIOGRAPHY: 1. Left main coronary has mild luminal irregularities. 2. Left anterior descending coronary is occluded proximally. 3. Left circumflex has 90% occlusion proximally. Obtuse marginal branch is occluded. 4. Right coronary is occluded proximally. CORONARY BYPASS GRAFT ANGIOGRAPHY: 1. Saphenous vein graft to the left anterior descending coronary is patent. 2. Saphenous vein graft to the obtuse marginal branch is patent. 3. Saphenous vein graft to the right coronary has a 90% discrete stenosis distally, but a very small caliber size vessel. PERCUTANEOUS INTERVENTION A 6-Luxembourgish sheath was placed in the right common femoral artery. Heparin was administered throughout the entire procedure to maintain appropriate anticoagulation. A 6-Luxembourgish XB 3.5 guide catheter was advanced to the left main. A 0.014-inch, 8 cm [employer] Runthrough wire was navigated down the distal left circumflex. A 2.0 x 15 mm balloon was then deployed with two sequential inflations of the proximal left circumflex, followed by a 3.0 x 26 mm drug-eluting stent, which extended from the distal left main into the proximal left circumflex and post-dilated 3.25 x 12 mm Non-Compliant balloon to 20 atmospheres. Repeat angiography showed no residual stenosis, YASIR 3 flow. The sheath was sewn into place to be removed with manual hemostasis. CONCLUSIONS: 1. Severe viejas three-vessel coronary artery disease. 2. Three of three coronary bypass grafts are patent. 3. Successful percutaneous intervention with a drug-eluting stent to the proximal left circumflex. PLAN: Hopefully this will translate well with symptomatic improvement. We will monitor the patient for any post-procedural complications. Anticipate discharge tomorrow. MD AMANDEEP Lees/REA , 12:06 PM , 12:21 PM
[2018-03-28] MEDS ORDERED: Bacitracin Oint 0.9 GM Packet TOPICAL ONE (13:00)
[2018-03-28] MEDS ORDERED: fentaNYL Citrate Inj 100 MCG/2 ML Ampul IV.PUSH ONE (14:15)
--- NOTE | 2018-03-28 19:24 | P.PNIM ---
Subjective Interval history: No new complaints. Physical Exam Vital signs: Vital Signs 03/27/18 20:00 03/28/18 00:28 03/28/18 01:01 Temperature 98.0 F 98.1 F Pulse Rate 69 65 62 Respiratory Rate 18 18 Blood Pressure 164/74 H 178/89 H Pulse Oximetry 98 93 L 03/28/18 04:00 03/28/18 06:00 03/28/18 08:00 Temperature 98.2 F 98.1 F Pulse Rate 58 L 62 59 L Respiratory Rate 18 18 Blood Pressure 179/79 H 179/79 H Pulse Oximetry 95 94 L 03/28/18 16:00 03/28/18 17:00 03/28/18 18:00 Temperature 97.8 F Pulse Rate 71 Respiratory Rate 18 Blood Pressure 156/71 H 151/80 H 150/76 H Pulse Oximetry 98 Intake & Output 03/28/18 03/28/18 03/29/18 06:59 18:59 06:59 Intake Total 1120 / 1120 Output Total 1000 / 1000 Balance 120 / 120 Weight 91.5 kg Intake: IV 1000 / 1000 NS Inj 1,000 ML @ 100 mls/hr IV 1000 / 1000 .CONT .Q10H SINCERE Rx#:[id number] Oral 120 / 120 Output: Urine 1000 / 1000 Other: # Bowel Movements 0 Results - Labs CBC & Chem 7: 03/29/18 04:50 03/29/18 04:50 Laboratory Results - last 24 hr 03/27/18 03/28/18 03/28/18 19:44 09:01 16:53 POC Glucose 122 H 90 120 H Assessment and Plan - Assessment (1) Chest pain Code(s): R07.9 - Chest pain, unspecified Status: Acute Onset Date: ~ Plan: - Pt is a 77 y/o male with CAD with angina, hx of syncope s/p loop recorder implantation, diabetes mellitus, type 2, HTN, Depression/Anxiety, and diabetic gastroparesis. - His most recent LHC was 08/09/[address] Zaidi and he had noted LAD with 90% stenosis and left circumflex with 75-80% stenosis in it proximal portion s/p stenting. - He was also last admitted to the chest pain center in 07/2017 and had a Lexiscan stress test performed on 08/26/18 which was negative. - [place] [facility] [place] with complaints of left sided chest pain which he describes as heaviness that radiates to the left arm and into his jaw that began yesterday - Pt took his baby ASA yesterday and was given 243mg of ASA in the ED. He refused further nitroglycerin due to the headache. - Outpt EKG at the urgent care was read as electronic atrial pacemaker, marked right axis deviation (QRS > 100), RBBB and possible RVH - CE are negative - Appreciate consult from Cardiology - Lexiscan (03/26/18): - There is redistribution in the mid anterior lateral wall beginning in mid ventricular wall to the base. - There is mild hypokinesis of the segment in spite of the ejection fraction is 67%. - 2D Echo(03/26/18): - Estimated ejection fraction in the range of 60-65%. - Wall thickness is measured at the upper limits of normal. - Trace mitral valve regurgitation. - There is trace tricuspid valve regurgitation. - Trivial pulmonary valve regurgitation. - Cont home doses of cardiac meds - Could consider adding Imdur - Discussed the case with Dr. Geller this morning and she wants the pts started on a Heparin gtt and made NPO after MN for [facility] to review on Wednesday for possible [facility] - Telemetry - DVT prophylaxis with SCDs (2) CAD (coronary artery disease) Code(s): I25.10 - Atherosclerotic heart disease of [place] coronary artery without angina pectoris Status: Chronic Plan: - Pt with hx of CAD and angina which is medically managed - He has had multiple cardiac caths with the most recent C (08/09/2017) with Dr. Zaidi --> - LAD with 90% stenosis and left circumflex with 75-80% stenosis in it proximal portion s/p stenting - Home meds resumed (3) HTN (hypertension) Code(s): I10 - Essential (primary) hypertension Status: Chronic Plan: - Home meds continued (4) Diabetes mellitus Code(s): E11.9 - Type 2 diabetes mellitus without complications Status: Chronic Plan: - NovoLog SSI - Accu checks (5) Back pain Code(s): M54.9 - Dorsalgia, unspecified Status: Acute Plan: - Pt reports that he has been having worsening right sided back pain for a few weeks - The pain causes his legs to buckle occasionally. - Previous right sided hip and pelvis Xray in the ED was negative - PT evaluation - Progress Note: Quality - VTE Deep Vein Thrombosis/Pulmonary Embolism Present on Admission: No (1) Chest pain Qualifiers: Chest pain type: unspecified Qualified Code(s): R07.9 - Chest pain, unspecified (3) HTN (hypertension) Qualifiers: Hypertension type: essential hypertension Qualified Code(s): I10 - Essential (primary) hypertension (4) Diabetes mellitus Qualifiers: Diabetes mellitus type: type 2 (5) Back pain Qualifiers: Back pain location: low back pain Chronicity: acute Back pain laterality: right Sciatica presence: without sciatica Qualified Code(s): M54.5 - Low back pain
[2018-03-28] MEDS: Sod Chloride 0.9% Inj 1,000 ML IV.CONT SCH (20:38)
[2018-03-29] MEDS: Morphine Inj 4 MG/ML Vial IV.PUSH PRN ×2 (02:19→09:54)
[2018-03-29 06:54] LABS: Calcium 8.1 mg/dL (8.5-10.1); Carbon Dioxide 23.8 meq/L (21.0-32.0); Potassium 3.6 meq/L (3.5-5.1)
[2018-03-29 06:57] LABS: Chol/HDL Ratio 3.92 Ratio; HDL Cholesterol 38.7 mg/dL (40.0-60.0)
[2018-03-29 07:07] LABS: Baso # (Auto) 0.1 th/mm3 (0.0-0.2); Baso % (Auto) 1.1 % (0.0-2.0); Eos # (Auto) 0.4 th/mm3 (0.0-0.4); Eos % (Auto) 4.9 % (0.0-4.0); Hematocrit 42.1 % (39.0-51.0); Hemoglobin 13.7 gm/dL (13.0-17.0); Lymph # (Auto) 1.1 th/mm3 (1.0-4.8); Lymph % (Auto) 14.9 % (9.0-44.0); Mean Corpuscular HGB Conc 32.6 % (32.0-36.0); Mean Corpuscular Hemoglobin 27.2 pg (27.0-34.0); Mean Corpuscular Volume 83.6 fL (80.0-100.0); Mono # (Auto) 1.2 th/mm3 (0.0-0.9); Mono % (Auto) 16.1 % (0.0-8.0); Neut # (Auto) 4.8 th/mm3 (1.8-7.7); Platelet Count 197 th/mm3 (150-450); Red Blood Count 5.03 mil/mm3 (4.50-5.90); Red Cell Distribution Width 14.3 % (11.6-17.2); White Blood Count 7.6 th/mm3 (4.0-11.0)
--- NOTE | 2018-03-29 09:13 | P.PNCA ---
Subjective Interval history: Doing well post cath. No issues with groin access site. Chest pain or shortness of breath has improved. Continues to have back pain, reports he is seeing neurosurgeon today for this. Physical Exam Vital signs: Vital Signs 03/28/18 15:00 03/28/18 16:00 03/28/18 17:00 Temperature 97.8 F Pulse Rate 67 76 72 Respiratory Rate 18 Blood Pressure 156/71 H 151/80 H Pulse Oximetry 98 03/28/18 18:00 03/28/18 19:00 03/28/18 20:00 Temperature 99.2 F Pulse Rate 69 71 71 Respiratory Rate 16 Blood Pressure 150/76 H 153/73 H Pulse Oximetry 96 03/29/18 00:00 03/29/18 04:00 Temperature 98.8 F 98.8 F Pulse Rate 66 60 Respiratory Rate 18 16 Blood Pressure 155/74 H 143/77 H Pulse Oximetry 96 98 Intake & Output 03/28/18 03/29/18 03/29/18 18:59 06:59 18:59 Intake Total 1360 / 1360 480 / 480 Output Total 400 / 400 1000 / 1000 Balance 960 / 960 -520 / -520 Intake: IV 1000 / 1000 NS Inj 1,000 ML @ 100 mls/hr IV 1000 / 1000 .CONT .Q10H SINCERE Rx#:[id number] Oral 360 / 360 480 / 480 Output: Urine 400 / 400 1000 / 1000 Narrative: GENERAL: Well-developed well-nourished. In no acute distress. NECK: No carotid bruits. No JVD. CARDIOVASCULAR: Regular rate and rhythm. No murmur appreciated. Right groin access site with intact pulses and no swelling, ecchymosis, or tenderness. RESPIRATORY: No accessory muscle use. Clear to auscultation. Breath sounds equal bilaterally. MUSCULOSKELETAL: No clubbing or cyanosis. No edema. NEUROLOGICAL: Awake and alert. Normal speech. Assessment and Plan - Plan 77-year-old male with past medical history of CAD with CABG in 6 stents in the past, HTN, HLD, DM. The patient was having back pain 1 week presented to urgent care. While walking to urgent care he had an episode of severe chest discomfort and was sent to the ED. Lexiscan was done which showed moderate size area redistribution anterior lateral wall CAD with chest pain: LHC 03/28/18 with PCI to SVG/RCA lesion with good symptomatic improvement. Aspirin, Plavix. Would recommend statin if patient agreeable.
[2018-03-29] MEDS: amLODIPine 5 MG Tablet PO SCH (09:57)
[2018-03-29] MEDS: Metoprolol Tartrate 100 MG Tablet PO SCH (09:57)
[2018-03-29] MEDS: Glimepiride 4 MG Tablet PO SCH (09:57)
[2018-03-29] MEDS: Insulin NovoLOG Aspart Correctional Sugar Inj SQ SCH ×2 (10:03→13:16)
--- NOTE | 2018-03-29 11:38 | P.CONNS ---
<Zaki Garnett - Last Filed: 03/29/18 11:00> History of Present Illness Service: Neurosurgery Consult date: 03/29/18 Requesting Physician: Low Cobian Reason for Consult: low back pain Primary Care Provider: Homer Dorman Chief Complaint: chest pain and low back pain. History of Present Illness: This is a 77 y/o M who presented to an urgent care with right low back pain. He states the low back pain started a week ago and progressively got worse. He denies any radiculopathy, saddle esthesias, or paresthesias in the lower extremities. He denies any weakness in the lower extremities. He denies any bowel or bladder incontinence. He went to urgent care for an evaluation and while in the parking lot he developed chest pain. He states they did an EKG and felt this was different compared to his previous EKGs and he was transferred to [facility] for further evaluation. He underwent a heart cath which revealed severe ruby 3 vessel CAD. 3 of 3 coronary bypass grafts were patent. He underwent percutaneous intervention with a drug eluting stent to the proximal left circumflex. He states his chest pain has improved but he continues to have his right low back pain. Neurosurgery was consulted for further evaluation. Review of Systems Constitutional: Denies chills, Denies excessive sweating, Denies weakness Cardiovascular: Denies chest pain, Denies shortness of breath Respiratory: Denies cough, Denies shortness of breath Gastrointestinal: Denies abdominal pain Musculoskeletal: Reports back pain, Denies muscle cramps, Denies muscle weakness Neurologic: Denies abnormal speech, Denies burning sensations, Denies localized weakness, Denies numbness, Denies tingling, Denies tingling/numbness/burning sensations, Denies unsteadiness, Denies weakness PMF - History History Provided By: Patient, Medical Record - Tobacco History Second Hand Smoke Exposure: No Tobacco Use In Past 30 Days: No Smoking Status: Former smoker Tobacco Type: Pipe - Alcohol History How Often Do You Have a Drink Containing Alcohol: Never - Substance Use History Substance History: No History of Abuse Medications and Allergies Allergies Allergy/AdvReac Type Severity Reaction Status Date / Time acetaminophen Allergy Severe unknown Verified 03/26/18 15:13 codeine Allergy Severe Anaphylaxis Verified 03/26/18 15:13 hydrocodone Allergy Severe Hives Verified 03/26/18 15:13 hydromorphone Allergy Severe MADE ME Verified 03/26/18 15:13 SICK ketorolac Allergy Severe HIVES, SOB Verified 03/26/18 15:13 lorazepam Allergy Severe unknown Verified 03/26/18 15:13 oxycodone Allergy Severe unknown Verified 03/26/18 15:13 tramadol Allergy Severe HIVES, SOB Verified 03/26/18 15:13 Home Medications Medication Instructions Recorded Confirmed Type amlodipine 5 mg PO DAILY 03/26/18 03/26/18 History clopidogrel 75 mg PO DAILY 03/26/18 03/26/18 History glimepiride 4 mg PO QAM 03/26/18 03/26/18 History metoprolol tartrate 100 mg PO BID 03/26/18 03/26/18 History Active Medications: Active Medications Amlodipine Besylate (Norvasc) 5 mg PO DAILY [facility] Last Admin: 03/29/18 09:57 Dose: 5 mg Aspirin (Ecotrin) 81 mg PO DAILY [facility] Atorvastatin Calcium (Lipitor) 40 mg PO HS [facility] Clopidogrel Bisulfate (Plavix) 75 mg PO DAILY [facility] Last Admin: 03/29/18 09:57 Dose: 75 mg Cyclobenzaprine HCl (Flexeril) 5 mg PO Q8HR [facility] Glimepiride (Amaryl) 4 mg PO DAILY@0800 [facility] Last Admin: 03/29/18 09:57 Dose: 4 mg Insulin Aspart (Novolog Insulin Suppl Scale Inj) 0 unit SQ [facility]; Protocol Last Admin: 03/29/18 10:03 Dose: 1 unit Lidocaine HCl (Xylocaine 1% Inj (50 Ml)) 10 ml INFILTRATN UNSCH PRN PRN Reason: SHEATH REMOVAL Stop: 03/29/18 11:58 Metoprolol Tartrate (Lopressor) 100 mg PO BID [facility] Last Admin: 03/29/18 09:57 Dose: 100 mg Miscellaneous (Pill Splitter) 1 each OTHER UNSCH PRN PRN Reason: SEE LABEL COMMENTS Morphine Sulfate (Morphine Inj) 2 mg IV.PUSH Q3H PRN PRN Reason: PAIN SCALE 3 - 10 Last Admin: 03/29/18 09:54 Dose: 2 mg Sodium Chloride (Ns Flush) 2 ml IV.FLUSH BID [facility] Last Admin: 03/29/18 09:59 Dose: 2 ml Sodium Chloride (Ns Flush) 2 ml IV.FLUSH PRN PRN PRN Reason: FLUSH AFTER USING IV ACCESS Exam Vital signs: Vital Signs 03/28/18 15:00 03/28/18 16:00 03/28/18 17:00 Temperature 97.8 F Pulse Rate 67 76 72 Respiratory Rate 18 Blood Pressure 156/71 H 151/80 H Pulse Oximetry 98 03/28/18 18:00 03/28/18 19:00 03/28/18 20:00 Temperature 99.2 F Pulse Rate 69 71 71 Respiratory Rate 16 Blood Pressure 150/76 H 153/73 H Pulse Oximetry 96 03/29/18 00:00 03/29/18 04:00 Temperature 98.8 F 98.8 F Pulse Rate 66 60 Respiratory Rate 18 16 Blood Pressure 155/74 H 143/77 H Pulse Oximetry 96 98 Intake & Output 03/28/18 03/29/18 03/29/18 18:59 06:59 18:59 Intake Total 1360 / 1360 480 / 480 Output Total 400 / 400 1000 / 1000 Balance 960 / 960 -520 / -520 Intake: IV 1000 / 1000 NS Inj 1,000 ML @ 100 mls/hr IV 1000 / 1000 .CONT .Q10H [facility] Rx#:[id number] Oral 360 / 360 480 / 480 Output: Urine 400 / 400 1000 / 1000 - Constitutional mild distress, average body habitus - Routine HEENT Exam Head: Present: normocephalic, atraumatic Eye: Present: PERRL - Routine Neck Exam Present: trachea midline. Absent: swelling - Routine Respiratory Exam Present: CTA bilaterally. Absent: respiratory distress, rhonchi, wheezes - Routine Cardiovascular Exam Present: RRR, S1, S2. Absent: murmur - Routine Abdominal Exam Present: soft, normoactive bowel sounds. Absent: tenderness, distended - Routine Extremities Exam Absent: cyanosis, edema, full ROM (Full extension of knees bilaterally exacerbate his right low back pain right more than left.) - Routine Skin Exam Present: intact. Absent: cyanosis, erythema Results - Laboratory Findings CBC and BMP: 03/29/18 04:50 03/29/18 04:50 Abnormal lab findings: Abnormal Labs 03/25/18 03/25/18 03/25/18 15:38 15:38 15:38 [place] % (Auto) 13.1 H Eos % (Auto) 4.3 H [place] # (Auto) 1.1 H PT Carbon Dioxide 20.2 L BUN 21 H Creatinine 1.52 H Estimated GFR 44 L POC Glucose Random Glucose 151 H Calcium Troponin I LESS THAN 0.02 L B-Natriuretic Peptide 209 H HDL Cholesterol TSH 3rd Generation 03/25/18 03/25/18 03/26/18 16:41 19:24 06:35 [place] % (Auto) Eos % (Auto) [place] # (Auto) PT 9.6 L Carbon Dioxide BUN 22 H Creatinine 1.40 H Estimated GFR 49 L POC Glucose Random Glucose Calcium 8.3 L Troponin I LESS THAN 0.02 L LESS THAN 0.02 L B-Natriuretic Peptide HDL Cholesterol [facility] 3rd Generation 03/26/18 03/27/18 03/27/18 06:35 11:51 19:44 [place] % (Auto) Eos % (Auto) [place] # (Auto) PT Carbon Dioxide BUN Creatinine Estimated GFR POC Glucose 134 H 122 H Random Glucose Calcium Troponin I B-Natriuretic Peptide HDL Cholesterol [facility] 3rd Generation 3.840 H 03/28/18 03/28/18 03/29/18 16:53 20:50 04:50 [place] % (Auto) 16.1 H Eos % (Auto) 4.9 H [place] # (Auto) 1.2 H PT Carbon Dioxide BUN Creatinine Estimated GFR POC Glucose 120 H 119 H Random Glucose Calcium Troponin I B-Natriuretic Peptide HDL Cholesterol [facility] 3rd Generation 03/29/18 03/29/18 04:50 08:45 [place] % (Auto) Eos % (Auto) [place] # (Auto) PT Carbon Dioxide BUN Creatinine Estimated GFR 64 L POC Glucose 151 H Random Glucose Calcium 8.1 L Troponin I B-Natriuretic Peptide HDL Cholesterol 38.7 L [facility] 3rd Generation Assessment and Plan - Assessment (1) Back pain Code(s): M54.9 - Dorsalgia, unspecified Status: Acute - Plan Discussed with pt in detail. Discussed with Dr. Fox this morning and treatment plan was developed with him. Pt is a 77 y/o M with an acute exacerbation of right sided low back pain without radiculopathy in the LEs. He also does not have any paresthesias, saddle esthesias or weakness in the lower extremities. He initially presented to urgent care for evaluation of this when he developed chest pain and EKG changes. He was transferred to [facility] and underwent cardiac catheterization which revealed severe ruby 3 vessel CAD. He underwent percutaneous intervention with a drug eluting stent to the proximal left circumflex. His chest pain resolved but he continues to have his acute right low back pain. Given his recent coronary procedure he would not be a candidate for any neurosurgical procedure. Dr. Fox recommends PT and pain management for treatment of his acute low back pain. I have discussed with the patient at the bedside and with the RN present. He expressed understanding of the plan. Discussed Condition With: Patient and RN <Jack Fox - Last Filed: 03/29/18 13:18> History of Present Illness Primary Care Provider: Homer Dorman Medications and Allergies Active Medications: Active Medications Amlodipine Besylate (Norvasc) 5 mg PO DAILY [facility] Last Admin: 03/29/18 09:57 Dose: 5 mg Aspirin (Ecotrin) 81 mg PO DAILY [facility] Atorvastatin Calcium (Lipitor) 40 mg PO HS [facility] Clopidogrel Bisulfate (Plavix) 75 mg PO DAILY [facility] Last Admin: 03/29/18 09:57 Dose: 75 mg Cyclobenzaprine HCl (Flexeril) 5 mg PO Q8H [facility] Last Admin: 03/29/18 11:53 Dose: 5 mg Glimepiride (Amaryl) 4 mg PO DAILY@0800 [facility] Last Admin: 03/29/18 09:57 Dose: 4 mg Insulin Aspart (Novolog Insulin Suppl Scale Inj) 0 unit SQ ACHS [facility]; Protocol Last Admin: 03/29/18 13:16 Dose: 1 unit Metoprolol Tartrate (Lopressor) 100 mg PO BID [facility] Last Admin: 03/29/18 09:57 Dose: 100 mg Miscellaneous (Pill Splitter) 1 each OTHER UNSCH PRN PRN Reason: SEE LABEL COMMENTS Morphine Sulfate (Morphine Inj) 2 mg IV.PUSH Q3H PRN PRN Reason: PAIN SCALE 3 - 10 Last Admin: 03/29/18 02:19 Dose: 2 mg Sodium Chloride (Ns Flush) 2 ml IV.FLUSH BID [facility] Last Admin: 03/29/18 09:59 Dose: 2 ml Sodium Chloride (Ns Flush) 2 ml IV.FLUSH PRN PRN PRN Reason: FLUSH AFTER USING IV ACCESS Exam Vital signs: Vital Signs 03/28/18 15:00 03/28/18 16:00 03/28/18 17:00 Temperature 97.8 F Pulse Rate 67 76 72 Respiratory Rate 18 Blood Pressure 156/71 H 151/80 H Pulse Oximetry 98 03/28/18 18:00 03/28/18 19:00 03/28/18 20:00 Temperature 99.2 F Pulse Rate 69 71 71 Respiratory Rate 16 Blood Pressure 150/76 H 153/73 H Pulse Oximetry 96 03/29/18 00:00 03/29/18 04:00 03/29/18 07:00 Temperature 98.8 F 98.8 F Pulse Rate 66 60 70 Respiratory Rate 18 16 Blood Pressure 155/74 H 143/77 H Pulse Oximetry 96 98 03/29/18 08:00 03/29/18 09:00 03/29/18 10:00 Temperature 98.4 F Pulse Rate 54 L 55 L 54 L Respiratory Rate 16 Blood Pressure 141/65 H Pulse Oximetry 95 03/29/18 11:00 03/29/18 12:00 03/29/18 13:00 Temperature 98 F Pulse Rate 55 L 54 L 55 L Respiratory Rate 18 Blood Pressure 141/74 H Pulse Oximetry 97 Intake & Output 03/28/18 03/29/18 03/29/18 18:59 06:59 18:59 Intake Total 1360 / 1360 480 / 480 1000 / 1000 Output Total 400 / 400 1000 / 1000 Balance 960 / 960 -520 / -520 1000 / 1000 Intake: IV 1000 / 1000 1000 / 1000 NS Inj 1,000 ML @ 100 mls/hr IV 1000 / 1000 1000 / 1000 .CONT .Q10H [facility] Rx#:[id number] Oral 360 / 360 480 / 480 Output: Urine 400 / 400 1000 / 1000 Results - Laboratory Findings CBC and BMP: 03/29/18 04:50 03/29/18 04:50 Abnormal lab findings: Abnormal Labs 03/25/18 03/25/18 03/25/18 15:38 15:38 15:38 [place] % (Auto) 13.1 H Eos % (Auto) 4.3 H [place] # (Auto) 1.1 H PT Carbon Dioxide 20.2 L BUN 21 H Creatinine 1.52 H Estimated GFR 44 L POC Glucose Random Glucose 151 H Calcium Troponin I LESS THAN 0.02 L B-Natriuretic Peptide 209 H HDL Cholesterol TSH 3rd Generation 03/25/18 03/25/18 03/26/18 16:41 19:24 06:35 [place] % (Auto) Eos % (Auto) [place] # (Auto) PT 9.6 L Carbon Dioxide BUN 22 H Creatinine 1.40 H Estimated GFR 49 L POC Glucose Random Glucose Calcium 8.3 L Troponin I LESS THAN 0.02 L LESS THAN 0.02 L B-Natriuretic Peptide HDL Cholesterol TSH 3rd Generation 03/26/18 03/27/18 03/27/18 06:35 11:51 19:44 [place] % (Auto) Eos % (Auto) [place] # (Auto) PT Carbon Dioxide BUN Creatinine Estimated GFR POC Glucose 134 H 122 H Random Glucose Calcium Troponin I B-Natriuretic Peptide HDL Cholesterol TSH 3rd Generation 3.840 H 03/28/18 03/28/18 03/29/18 16:53 20:50 04:50 [place] % (Auto) 16.1 H Eos % (Auto) 4.9 H [place] # (Auto) 1.2 H PT Carbon Dioxide BUN Creatinine Estimated GFR POC Glucose 120 H 119 H Random Glucose Calcium Troponin I B-Natriuretic Peptide HDL Cholesterol TSH 3rd Generation 03/29/18 03/29/18 03/29/18 04:50 08:45 11:52 [place] % (Auto) Eos % (Auto) [place] # (Auto) PT Carbon Dioxide BUN Creatinine Estimated GFR 64 L POC Glucose 151 H 160 H Random Glucose Calcium 8.1 L Troponin I B-Natriuretic Peptide HDL Cholesterol 38.7 L TSH 3rd Generation Assessment and Plan - Attending Attestation The exam, history, and the medical decision-making described in the above note were completed with the assistance of the mid-level provider. I reviewed and agree with the findings presented. I attest that I had a [id number] encounter with the patient on the same day, and personally performed and documented my assessment and findings in the medical record. Patient has a remote history of T10-S1 posterolateral and interbody fusion with pedicle screws in place. There is not much else that can be offered from a surgical standpoint given that all the lumbar segments in the spine have already been fused. Recommend a chronic pain management and physical therapy. Neurosurgery service will sign off. <Zaki Garnett - Last Filed: 03/29/18 11:00> (1) Back pain Qualifiers: Back pain location: low back pain Chronicity: acute Back pain laterality: right Sciatica presence: without sciatica Qualified Code(s): M54.5 - Low back pain
--- NOTE | 2018-03-29 15:46 | P.PNIM ---
Subjective Interval history: Pt still complains of continued back pain which limits his mobility Pt was seen by Neurosurgery and they recommended pain management and continued PT Physical Exam Vital signs: Vital Signs 03/28/18 16:00 03/28/18 17:00 03/28/18 18:00 Temperature 97.8 F Pulse Rate 76 72 69 Respiratory Rate 18 Blood Pressure 156/71 H 151/80 H 150/76 H Pulse Oximetry 98 03/28/18 19:00 03/28/18 20:00 03/29/18 00:00 Temperature 99.2 F 98.8 F Pulse Rate 71 71 66 Respiratory Rate 16 18 Blood Pressure 153/73 H 155/74 H Pulse Oximetry 96 96 03/29/18 04:00 03/29/18 07:00 03/29/18 08:00 Temperature 98.8 F 98.4 F Pulse Rate 60 70 54 L Respiratory Rate 16 16 Blood Pressure 143/77 H 141/65 H Pulse Oximetry 98 95 03/29/18 09:00 03/29/18 10:00 03/29/18 11:00 Temperature 98 F Pulse Rate 55 L 54 L 55 L Respiratory Rate 18 Blood Pressure 141/74 H Pulse Oximetry 97 03/29/18 12:00 03/29/18 13:00 Temperature Pulse Rate 54 L 55 L Respiratory Rate Blood Pressure Pulse Oximetry Intake & Output 03/28/18 03/29/18 03/29/18 18:59 06:59 18:59 Intake Total 1360 / 1360 480 / 480 1000 / 1000 Output Total 400 / 400 1000 / 1000 Balance 960 / 960 -520 / -520 1000 / 1000 Intake: IV 1000 / 1000 1000 / 1000 NS Inj 1,000 ML @ 100 mls/hr IV 1000 / 1000 1000 / 1000 .CONT .Q10H [facility] Rx#:[id number] Oral 360 / 360 480 / 480 Output: Urine 400 / 400 1000 / 1000 Narrative: General: NAD, AAOx3 Chest: CTA Cardiac: Regular Abd: +BS, soft ND/NT Ext: No edema Results - Labs CBC & Chem 7: 03/29/18 04:50 03/29/18 04:50 Laboratory Results - last 24 hr 03/28/18 03/28/18 03/29/18 16:53 20:50 04:50 WBC 7.6 RBC 5.03 Hgb 13.7 Hct 42.1 MCV 83.6 MCH 27.2 MCHC 32.6 RDW 14.3 Plt Count 197 MPV 8.0 Neut % (Auto) 63.0 Lymph % (Auto) 14.9 [place] % (Auto) 16.1 H Eos % (Auto) 4.9 H Baso % (Auto) 1.1 Neut # (Auto) 4.8 Lymph # (Auto) 1.1 [place] # (Auto) 1.2 H Eos # (Auto) 0.4 Baso # (Auto) 0.1 WBC Differential . Differential Comment Auto diff final Sodium Potassium Chloride Carbon Dioxide Anion Gap BUN Creatinine Estimated GFR POC Glucose 120 H 119 H Random Glucose Calcium Total Creatine Kinase Triglycerides Cholesterol LDL Cholesterol, Calc HDL Cholesterol Cholesterol/HDL Ratio 03/29/18 03/29/18 03/29/18 04:50 08:45 11:52 WBC RBC Hgb Hct MCV MCH MCHC RDW Plt Count MPV Neut % (Auto) Lymph % (Auto) [place] % (Auto) Eos % (Auto) Baso % (Auto) Neut # (Auto) Lymph # (Auto) [place] # (Auto) Eos # (Auto) Baso # (Auto) WBC Differential Differential Comment Sodium 138 Potassium 3.6 Chloride 105 Carbon Dioxide 23.8 Anion Gap 9 BUN 16 Creatinine 1.11 Estimated GFR 64 L POC Glucose 151 H 160 H Random Glucose 79 Calcium 8.1 L Total Creatine Kinase 78 Triglycerides 143 Cholesterol 152 LDL Cholesterol, Calc 85 HDL Cholesterol 38.7 L Cholesterol/HDL Ratio 3.92 Assessment and Plan - Assessment (1) Chest pain Code(s): R07.9 - Chest pain, unspecified Status: Acute Onset Date: ~ Plan: - Pt is a 77 y/o male with CAD with angina, hx of syncope s/p loop recorder implantation, diabetes mellitus, type 2, HTN, Depression/Anxiety, and diabetic gastroparesis. - His most recent LHC was 08/09/[address] Zaidi and he had noted LAD with 90% stenosis and left circumflex with 75-80% stenosis in it proximal portion s/p stenting. - He was also last admitted to the chest pain center in 07/2017 and had a Lexiscan stress test performed on 08/26/18 which was negative. - He presented to the ED at [facility] on 03/25/18 with complaints of left sided chest pain which he describes as heaviness that radiates to the left arm and into his jaw that began yesterday - Pt took his baby ASA yesterday and was given 243mg of ASA in the ED. He refused further nitroglycerin due to the headache. - Outpt EKG at the urgent care was read as electronic atrial pacemaker, marked right axis deviation (QRS > 100), RBBB and possible RVH - CE are negative - Appreciate consult from Cardiology - Lexiscan (03/26/18): - There is redistribution in the mid anterior lateral wall beginning in mid ventricular wall to the base. - There is mild hypokinesis of the segment in spite of the ejection fraction is 67%. - 2D Echo(03/26/18): - Estimated ejection fraction in the range of 60-65%. - Wall thickness is measured at the upper limits of normal. - Trace mitral valve regurgitation. - There is trace tricuspid valve regurgitation. - Trivial pulmonary valve regurgitation. - Cont home doses of cardiac meds - Pt underwent LHC on 03/28/18 with PCI to SVG/RCA lesion with good symptomatic improvement. - Cont. Aspirin, Plavix. - Pt refusing statin - Telemetry - DVT prophylaxis with SCDs (2) CAD (coronary artery disease) Code(s): I25.10 - Atherosclerotic heart disease of [place] coronary artery without angina pectoris Status: Chronic Plan: - Pt with hx of CAD and angina which is medically managed - See above (3) HTN (hypertension) Code(s): I10 - Essential (primary) hypertension Status: Chronic Plan: - Home meds continued (4) Diabetes mellitus Code(s): E11.9 - Type 2 diabetes mellitus without complications Status: Chronic Plan: - NovoLog SSI - Accu checks (5) Back pain Code(s): M54.9 - Dorsalgia, unspecified Status: Acute Plan: - Pt reports that he has been having worsening right sided back pain for a few weeks - The pain causes his legs to buckle occasionally. - Previous right sided hip and pelvis Xray in the ED was negative - PT following and recommending outpatient PT - Pt was seen by Neurosurgery and they are recommending continued pain management and PT - Pt has multiple drug allergies to narcotics - Trial of Flexeril 5mg Q8H -If some symptomatic improvement on the Flexeril plan to d/c home with HHC/PT vs. outpt PT - Attending Attestation Patient examined. Assessment and plan formulated with Ashley Alonzo PA-C. I agree with the above. (1) Chest pain Qualifiers: Chest pain type: unspecified Qualified Code(s): R07.9 - Chest pain, unspecified (3) HTN (hypertension) Qualifiers: Hypertension type: essential hypertension Qualified Code(s): I10 - Essential (primary) hypertension (4) Diabetes mellitus Qualifiers: Diabetes mellitus type: type 2 (5) Back pain Qualifiers: Back pain location: low back pain Chronicity: acute Back pain laterality: right Sciatica presence: without sciatica Qualified Code(s): M54.5 - Low back pain
--- NOTE | 2018-03-29 16:03 | P.DCO ---
- Diagnosis (1) Chest pain (3) HTN (hypertension) (4) Diabetes mellitus (5) Back pain - Physical Therapy Order: Evaluate and treat, Improve ambulation, Strength and gait training - Home Health Nursing Order: Signs/symptoms of disease process, Nursing assessment with vital signs - Certification I have seen patient David Ramirez on 03/29/18. My clinical findings support the need for the requested home health care services because: Deconditioned with increased weakness I certify that my clinical findings support that this patient is homebound because: Unsteady gait/balance (1) Chest pain Qualifiers: Chest pain type: unspecified Qualified Code(s): R07.9 - Chest pain, unspecified (3) HTN (hypertension) Qualifiers: Hypertension type: essential hypertension Qualified Code(s): I10 - Essential (primary) hypertension (4) Diabetes mellitus Qualifiers: Diabetes mellitus type: type 2 (5) Back pain Qualifiers: Back pain location: low back pain Chronicity: acute Back pain laterality: right Sciatica presence: without sciatica Qualified Code(s): M54.5 - Low back pain
--- NOTE | 2018-03-29 16:53 | P.DS ---
<Ashley Alonzo - Last Filed: 03/29/18 16:47> Date of admission: 03/25/18 19:32 Primary care physician: Homer Dorman DS: Diagnosis - Discharge Diagnosis (1) Chest pain Status: Acute (2) CAD (coronary artery disease) Status: Chronic (3) HTN (hypertension) Status: Chronic (4) Diabetes mellitus Status: Chronic (5) Back pain Status: Acute DS: Medications - Discharge Medications Prescriptions: cyclobenzaprine 10 mg PO Q8H #9 tab DS: Summary Hospital Course: Chest pain CAD HTN - Pt is a 77 y/o male with CAD with angina, hx of syncope s/p loop recorder implantation, diabetes mellitus, type 2, HTN, Depression/Anxiety, and diabetic gastroparesis. His most recent LHC was 08/09/[address] Zaidi and he had noted LAD with 90% stenosis and left circumflex with 75-80% stenosis in it proximal portion s/p stenting. He was also last admitted to the chest pain center in 07/2017 and had a Lexiscan stress test performed on 08/26/18 which was negative. He presented to the ED at [facility] on 03/25/18 with complaints of left sided chest pain which he describes as heaviness that radiates to the left arm and into his jaw that began yesterday - Pt took his baby ASA yesterday and was given 243mg of ASA in the ED. He refused further nitroglycerin due to the headache. Outpt EKG at the urgent care was read as electronic atrial pacemaker, marked right axis deviation (QRS > 100), RBBB and possible RVH. CE are negative. Cardiology consulted. Lexiscan (03/26/18) --> There is redistribution in the mid anterior lateral wall beginning in mid ventricular wall to the base.There is mild hypokinesis of the segment in spite of the ejection fraction is 67%. Pt underwent LHC on 03/28/18 with PCI to SVG/RCA lesion with good symptomatic improvement. Pt was continued on Aspirin, Plavix. Pt refusing statin. Pt is to followup with Dr. Pollock in 2 weeks Pt is to followup with Dr. Dorman in 1 week - 2D Echo(03/26/18): - Estimated ejection fraction in the range of 60-65%. - Wall thickness is measured at the upper limits of normal. - Trace mitral valve regurgitation. - There is trace tricuspid valve regurgitation. - Trivial pulmonary valve regurgitation. Diabetes mellitus - Resume home diabetes medications at discharge. Back pain - Pt reports that he has been having worsening right sided back pain for a few weeks. The pain causes his legs to buckle occasionally. Previous right sided hip and pelvis Xray in the ED was negative. PT following and recommending outpatient PT. Pt was seen by Neurosurgery and they are recommending continued pain management and PT. Pt has multiple drug allergies to narcotics. Trial of Flexeril 5mg Q8H at discharge. Offered the pt to go to SNF at discharge but he refused. Pt to be d/c home with HHC/PT. He is to followup with [facility] in 2-3 weeks. - Time Spent with Patient Total time spent providing and/or coordinating discharge services: - Quality: VTE Deep Vein Thrombosis/Pulmonary Embolism Present on Admission: No Exam Vital signs: Vital Signs 03/28/18 17:00 03/28/18 18:00 03/28/18 19:00 Temperature 99.2 F Pulse Rate 72 69 71 Respiratory Rate 16 Blood Pressure 151/80 H 150/76 H 153/73 H Pulse Oximetry 96 03/28/18 20:00 03/29/18 00:00 03/29/18 04:00 Temperature 98.8 F 98.8 F Pulse Rate 71 66 60 Respiratory Rate 18 16 Blood Pressure 155/74 H 143/77 H Pulse Oximetry 96 98 03/29/18 07:00 03/29/18 08:00 03/29/18 09:00 Temperature 98.4 F Pulse Rate 70 54 L 55 L Respiratory Rate 16 Blood Pressure 141/65 H Pulse Oximetry 95 03/29/18 10:00 03/29/18 11:00 03/29/18 12:00 Temperature 98 F Pulse Rate 54 L 55 L 54 L Respiratory Rate 18 Blood Pressure 141/74 H Pulse Oximetry 97 03/29/18 13:00 Temperature Pulse Rate 55 L Respiratory Rate Blood Pressure Pulse Oximetry Intake & Output 03/28/18 03/29/18 03/29/18 18:59 06:59 18:59 Intake Total 1360 / 1360 480 / 480 1000 / 1000 Output Total 400 / 400 1000 / 1000 Balance 960 / 960 -520 / -520 1000 / 1000 Intake: IV 1000 / 1000 1000 / 1000 NS Inj 1,000 ML @ 100 mls/hr IV 1000 / 1000 1000 / 1000 .CONT .Q10H SINCERE Rx#:[id number] Oral 360 / 360 480 / 480 Output: Urine 400 / 400 1000 / 1000 Narrative: General: NAD, AAOx3 Chest: CTA Cardiac: regular Abd: +BS, soft ND/NT Ext: No edema Results Procedures completed during hospitalization: See summary Labs on day of discharge: Labs from last 24 hours 03/29/18 03/29/18 03/29/18 11:52 08:45 04:50 WBC RBC Hgb Hct MCV MCH MCHC RDW Plt Count MPV Neut % (Auto) Lymph % (Auto) [place] % (Auto) Eos % (Auto) Baso % (Auto) Neut # (Auto) Lymph # (Auto) [place] # (Auto) Eos # (Auto) Baso # (Auto) WBC Differential Differential Comment Sodium 138 Potassium 3.6 Chloride 105 Carbon Dioxide 23.8 Anion Gap 9 BUN 16 Creatinine 1.11 Estimated GFR 64 L POC Glucose 160 H 151 H Random Glucose 79 Calcium 8.1 L Total Creatine Kinase 78 Triglycerides 143 Cholesterol 152 LDL Cholesterol, Calc 85 HDL Cholesterol 38.7 L Cholesterol/HDL Ratio 3.92 03/29/18 03/28/18 03/28/18 04:50 20:50 16:53 WBC 7.6 RBC 5.03 Hgb 13.7 Hct 42.1 MCV 83.6 MCH 27.2 MCHC 32.6 RDW 14.3 Plt Count 197 MPV 8.0 Neut % (Auto) 63.0 Lymph % (Auto) 14.9 [place] % (Auto) 16.1 H Eos % (Auto) 4.9 H Baso % (Auto) 1.1 Neut # (Auto) 4.8 Lymph # (Auto) 1.1 [place] # (Auto) 1.2 H Eos # (Auto) 0.4 Baso # (Auto) 0.1 WBC Differential . Differential Comment Auto diff final Sodium Potassium Chloride Carbon Dioxide Anion Gap BUN Creatinine Estimated GFR POC Glucose 119 H 120 H Random Glucose Calcium Total Creatine Kinase Triglycerides Cholesterol LDL Cholesterol, Calc HDL Cholesterol Cholesterol/HDL Ratio <Low Cobian - Last Filed: 04/10/18 23:52> Date of admission: 03/25/18 19:32 Primary care physician: Homer Dorman Brief History from admission: Mr. Viera is a 77 y/o WM with CAD with angina, hx of syncope s/p loop recorder implantation, diabetes mellitus, type 2, HTN, Depression/Anxiety, and diabetic gastroparesis. His most recent LHC was 08/09/[address] Zaidi and he had noted LAD with 90% stenosis and left circumflex with 75-80% stenosis in it proximal portion s/p stenting. He was also last admitted to the chest pain center in 07/2017 and had a Lexiscan stress test performed on 08/26/18 which was negative. He presented to the ED at [facility] on 03/25/18 with complaints of left sided chest pain which he describes as heaviness that radiates to the left arm and into his jaw that began yesterday while he was at an Urgent care. He had gone to the urgent care for evaluation of hip pain and developed chest pain while he was there. It reportedly lasted 14 minutes. Pt also reported some nausea. Pt took his baby ASA yesterday and was given 243mg of ASA in the ED. He refused further nitroglycerin due to the headache. DS: Diagnosis - Discharge Diagnosis (1) Chest pain Status: Acute (2) CAD (coronary artery disease) Status: Chronic (3) HTN (hypertension) Status: Chronic (4) Diabetes mellitus Status: Chronic (5) Back pain Status: Acute DS: Summary Hospital Course: Patient examined. Assessment and plan formulated with Ashley Alonzo PA-C. I agree with the above. - Time Spent with Patient Total time spent providing and/or coordinating discharge services: Discharge Plan - Discharge Order Discharge Orders: Discharge Order (Routine); Ordered 03/29/18 Ordered By: Ashley Alonzo Cardiology Clear for Discharge (Routine); Ordered 03/29/18 Ordered By: Juan Pollock - Discharge Details Anticipated Discharge Date: 03/29/18 - Physicians Team Primary Care Provider: Homer Dorman Attending Provider: Saleem Nolasco Other Providers: Saleem Nolasco MD ; Wing Berta Geller MD ; Jack Fox MD ; [facility], - Rxs /Orders / Referrals /Forms Prescriptions: New aspirin 81 mg Tablet,Delayed Release (Dr/Ec) 81 mg PO DAILY RF: 0 cyclobenzaprine 10 mg Tablet 10 mg PO Q8H Qty: 9 RF: 0 Continue amlodipine 5 mg Tablet 5 mg PO DAILY clopidogrel 75 mg Tablet 75 mg PO DAILY glimepiride 4 mg Tablet 4 mg PO QAM metoprolol tartrate 100 mg Tablet 100 mg PO BID Referrals: Homer Dorman M.D. [Primary Care Provider] - See Instructions (Followup in 1 week, call for an appt) Roe Staples MD [NEUROSURGERY] - See Instructions (Followup with Dr. Staples in 2 weeks) [facility] [AGENCY] - See Instructions Juan Pollock MD [Physician] - See Instructions (Followup in 2 weeks, call for an appt)
[2018-03-29 16:56] VITALS: PULSE 82
[2018-03-29 17:12] VITALS: BP 152/75; RESP 17; TEMP 98.2; O2SAT 93
== END 2018-03-29 17:45 | disposition home health service (06) ==
LOC: NEPHCDU 19:31 → HCIS 19:31 → N04 03-27 18:22 → HCIS 03-28 12:27
PROVIDERS: ADMIT Hospitalist; ATTEND Hospitalist